=== PATIENT | male | born 1950 | race Two or more races ===

== ENCOUNTER 2016-11-13 22:29 | Inpatient (IN) | payer MEDICARE, OTHER ==
[~2016-11-13] VITALS: Ht 170.2 cm; Wt 88.5 kg
[~2016-11-13 22:29] MED LIST: CARAFATE1 G1 ORAL; CATAPRES0.1 MG ORAL; GEODON40 MG ORAL; LISINOPRIL20 MG ORAL; QUETIAPINE FUM200 MG ORAL
[2016-11-13 22:37] VITALS: BP 151/59
[2016-11-13] MEDS ORDERED: CARAFATE1 GM/10 M1 ORAL (23:01)
[2016-11-13] MEDS ORDERED: VISTARIL10 MG ORAL (23:01)
[2016-11-13] MEDS ORDERED: LANTUS SOL100 UNIT/1 SUBQ (23:01)
[2016-11-13] MEDS ORDERED: DOCUSIL100 M1 ORAL (23:01)
[2016-11-13] MEDS ORDERED: LISINOPRIL20 MG ORAL (23:01)
[2016-11-13] MEDS ORDERED: OLANZAPINE10 MG ORAL (23:01)
[2016-11-13] MEDS ORDERED: ZYPREXA20 MG ORAL (23:01)
[2016-11-13] MEDS ORDERED: IBUPROFEN600 MG ORAL (23:01)
[2016-11-13] MEDS ORDERED: LEVOTHYROXINE25 MCG ORAL (23:01)
[2016-11-13] MEDS ORDERED: COGENTIN1 MG/ML PO (23:01)
[2016-11-13] MEDS ORDERED: PANTOPRAZOLE SO20 MG ORAL (23:01)
[2016-11-13] MEDS ORDERED: NORVASC5 MG ORAL (23:01)
[2016-11-13] MEDS ORDERED: HYDROCHLOROTHIA25 MG ORAL (23:01)
[2016-11-13] MEDS ORDERED: ATIVAN1 MG ORAL (23:01)
[2016-11-13] MEDS ORDERED: PAXIL10 MG/5 ML PO (23:01)
[2016-11-13 23:17] LABS: BASOPHILS % (AUTO) 1.9 % (0.0-2.0); EOSINOPHILS % (AUTO) 2.5 % (0.0-3.0); MEAN CORPUSCULAR HEMOGLOBIN 35.9 PG (27.0-31.0); MEAN CORPUSCULAR HGB CONC 38.5 G/DL (32.0-36.0); MEAN CORPUSCULAR VOLUME 93 FL (80-99); MEAN PLATELET VOLUME 7.4 FL (6.5-10.1); MONOCYTES % (AUTO) 12.9 % (1.0-10.0); NEUTROPHILS % (AUTO) 58.6 % (45.0-75.0); PLATELET COUNT 108 K/UL (150-450); RED BLOOD COUNT 3.08 M/UL (4.70-6.10); RED CELL DISTRIBUTION WIDTH 10.6 % (11.6-14.8); WHITE BLOOD COUNT 5.1 K/UL (4.8-10.8)
[2016-11-13 23:26] LABS: APPEARANCE,URINE CLEAR; KETONES,URINE 1+ (NEGATIVE); LEUKOCYTE ESTERASE ,URINE NEGATIVE (NEGATIVE); NITRITE,URINE NEGATIVE (NEGATIVE); PH,URINE 7 (4.5-8.0); PROTEIN,URINE NEGATIVE (NEGATIVE); UROBILINOGEN,URINE NORMAL MG/DL (0.0-1.0)
[2016-11-13 23:30] LABS: INR 1.4 (0.9-1.1); PROTHROMBIN TIME 14.7 SEC (9.30-11.50)
[2016-11-13 23:45] LABS: TROPONIN I < 0.30 ng/mL (<=0.30)
[2016-11-13 23:50] LABS: ALANINE AMINOTRANSFERASE 57 U/L (3-41); ALBUMIN/GLOBULIN RATIO 1.2 (1.0-2.7); ANION GAP 19 (5-15); ASPARTATE AMINO TRANSFERASE 111 U/L (5-40); CALCIUM 7.9 mg/dL (8.6-10.2); CARBON DIOXIDE 18 mEQ/L (20-30); CHLORIDE 69 mEQ/L (98-107); CREATININE 0.6 mg/dL (0.7-1.2); GLOMERULAR FILTRATION RATE > 60 mL/min (>60); HEMOLYSIS 7; LIPASE 45 U/L (< 60); POTASSIUM 3.7 mEQ/L (3.4-4.9); TOTAL PROTEIN 5.8 g/dL (6.6-8.7)
[2016-11-13 23:53] LABS: SODIUM 106 mEQ/L (135-145)
[2016-11-14] VITALS (9 sets, daily range): BP systolic 117–165; BP diastolic 56–76
[2016-11-14] LABS: CKMB 8.1 ng/mL (< 6.7)
--- NOTE | 2016-11-14 00:50 | Emergency Room Report ---
History of Present Illness General Chief Complaint: Abdominal Pain Source: Patient, Medical Record Present Illness HPI Patient presents from nursing facility for complaints of abdominal pain It was reports of urinary retention for several days Patient himself reports that he feels sick Feels weak Denies any focal pain Denies any headache or visual changes Denies any seizure activity denies any neck pain or photophobia There was no obvious fevers Allergies: Coded Allergies: No Known Allergies (Unverified , 02/26/16) Patient History Past Medical History: see triage record Pertinent Family History: none Reviewed Nursing Documentation: PMH: Agreed, PSxH: Agreed Nursing Documentation-PMH Past Medical History: No History, Except For Hx Cardiac Problems: No Hx Cancer: No Hx Gastrointestinal Problems: No Review of Systems All Other Systems: negative except mentioned in HPI Physical Exam Vital Signs Date Time Temp Pulse Resp B/P Pulse Ox O2 Delivery O2 Flow Rate FiO2 11/13/16 22:31 98.1 77 18 164/84 94 Room Air Sp02 EP Interpretation: reviewed, normal General Appearance: no apparent distress Head: normocephalic, atraumatic Eyes: bilateral eye EOMI, bilateral eye PERRL ENT: hearing grossly normal, normal pharynx, TMs + canals normal, uvula midline Neck: full range of motion, supple, no meningismus, no bony tend Respiratory: lungs clear, normal breath sounds, no rhonchi, no respiratory distress, no retraction, no accessory muscle use Cardiovascular #1: normal peripheral pulses, regular rate, rhythm, no gallop, no JVD, no murmur Gastrointestinal: normal bowel sounds, soft, no mass, no organomegaly, non- distended, no guarding, no hernia, no pulsatile mass, no rebound, other - Uncomfortable suprapubic area Genitourinary: no CVA tenderness Musculoskeletal: normal inspection Neurologic: oriented x3, responsive, routing machine operator III-XII nml as tested, motor strength/ tone normal, sensory intact Psychiatric: mood/affect normal Skin: no rash, warm/dry, other - Edema bilaterally Lymphatic: normal inspection, no adenopathy Medical Decision Making Diagnostic Impression: Primary Impression: Hyponatremia Additional Impression: Hypochloremia ER Course Patient is a fairly complex patient with multiple differential to consideration including but not limited to cardiac cardiopulmonary and vascular emergencies Patient's initial chemistry came back with a very low sodium Asking him further the patient reports that he has been drinking a lot of water Patient does not show any signs of seizures patient is awake and alert At this time has signs of fluid overload I feel the patient requires fluid restriction At this time was given 500 mL of normal saline Consideration is made for ICU admission However the patient is not on any trips Does not show any neurological symptoms And will have initial admission for telemetry with possible upgrade as needed Labs Test 11/13/16 22:25 11/13/16 22:50 11/14/16 00:14 Urine Color Yellow Urine Appearance Clear Urine pH 7 (4.5-8.0) Urine Specific [place] 1.005 (1.005-1.035) Urine Protein Negative (NEGATIVE) Urine Glucose (UA) Negative (NEGATIVE) Urine Ketones 1+ (NEGATIVE) Urine Occult Blood Negative (NEGATIVE) Urine Nitrite Negative (NEGATIVE) Urine Bilirubin Negative (NEGATIVE) Urine Urobilinogen Normal MG/DL (0.0-1.0) Urine Leukocyte Esterase Negative (NEGATIVE) White Blood Count 5.1 K/UL (4.8-10.8) Red Blood Count 3.08 M/UL (4.70-6.10) Hemoglobin 11.1 G/DL (14.2-18.0) Hematocrit 28.8 % (42.0-52.0) Mean Corpuscular Volume 93 FL (80-99) Mean Corpuscular Hemoglobin 35.9 PG (27.0-31.0) Mean Corpuscular Hemoglobin Concent 38.5 G/DL (32.0-36.0) Red Cell Distribution Width 10.6 % (11.6-14.8) Platelet Count 108 K/UL (150-450) Mean Platelet Volume 7.4 FL (6.5-10.1) Neutrophils (%) (Auto) 58.6 % (45.0-75.0) Lymphocytes (%) (Auto) 24.0 % (20.0-45.0) Monocytes (%) (Auto) 12.9 % (1.0-10.0) Eosinophils (%) (Auto) 2.5 % (0.0-3.0) Basophils (%) (Auto) 1.9 % (0.0-2.0) Prothrombin Time 14.7 SEC (9.30-11.50) Prothromb Time International Ratio 1.4 (0.9-1.1) Activated Partial Thromboplast Time 55 SEC (23-33) Sodium Level 106 mEQ/L (135-145) 105 mEQ/L (135-145) Potassium Level 3.7 mEQ/L (3.4-4.9) 3.8 mEQ/L (3.4-4.9) Chloride Level 69 mEQ/L (98-107) 71 mEQ/L (98-107) Carbon Dioxide Level 18 mEQ/L (20-30) 20 mEQ/L (20-30) Anion Gap 19 (5-15) 14 (5-15) Blood Urea Nitrogen 4 mg/dL (7-23) 4 mg/dL (7-23) Creatinine 0.6 mg/dL (0.7-1.2) 0.5 mg/dL (0.7-1.2) Estimat Glomerular Filtration Rate > 60 mL/min (>60) > 60 mL/min (>60) Glucose Level 130 mg/dL (74-106) 128 mg/dL (74-106) Calcium Level 7.9 mg/dL (8.6-10.2) 7.5 mg/dL (8.6-10.2) Total Bilirubin 0.8 mg/dL (0.0-1.2) Aspartate Amino Transf (AST/SGOT) 111 U/L (5-40) Alanine Aminotransferase (ALT/SGPT) 57 U/L (3-41) Alkaline Phosphatase 107 U/L (40-129) Total Creatine Kinase 571 U/L (38-174) Creatine Kinase MB 8.1 ng/mL (< 6.7) Creatine Kinase MB Relative Index 1.4 Troponin I < 0.30 ng/mL (<=0.30) Total Protein 5.8 g/dL (6.6-8.7) Albumin 3.2 g/dL (3.5-5.2) Globulin 2.6 g/dL Albumin/Globulin Ratio 1.2 (1.0-2.7) Lipase 45 U/L (< 60) Rhythm Strip Diag. Results EP Interpretation: yes Rate: 67 Rhythm: NSR, no PVC's, no ectopy Last Vital Signs Date Time Temp Pulse Resp B/P Pulse Ox O2 Delivery O2 Flow Rate FiO2 11/13/16 22:37 98.1 69 18 151/59 94 Room Air Status: improved Disposition: ADMITTED INPATIENT Condition: Serious Referrals: Elia Buchanan MD (PCP) ELIA WHITE D.O. November 14, 2016 00:50
[2016-11-14 00:58] LABS: ANION GAP 14 (5-15); CALCIUM 7.5 mg/dL (8.6-10.2); CARBON DIOXIDE 20 mEQ/L (20-30); CHLORIDE 71 mEQ/L (98-107); CREATININE 0.5 mg/dL (0.7-1.2); GLOMERULAR FILTRATION RATE > 60 mL/min (>60); HEMOLYSIS 3; POTASSIUM 3.8 mEQ/L (3.4-4.9)
[2016-11-14 01:01] LABS: SODIUM 105 mEQ/L (135-145)
[2016-11-14] MEDS ORDERED: SUCRALFATE1 GM ORAL (05:06)
[2016-11-14] MEDS ORDERED: DOCUSATE SODIU100 MG ORAL (05:06)
[2016-11-14] MEDS ORDERED: Olanzapine PO (05:06)
[2016-11-14] MEDS ORDERED: LANTUS5 UNITS SUBQ (05:06)
[2016-11-14] MEDS ORDERED: BENZTROPINE ME0.5 MG PO (05:06)
[2016-11-14] MEDS ORDERED: ZESTRIL20 MG ORAL (05:06)
[2016-11-14] MEDS ORDERED: VITAMINS PO (05:06)
[2016-11-14] MEDS ORDERED: MINERALS PO (05:06)
[2016-11-14] MEDS ORDERED: Levothyroxine Sodium PO (05:06)
[2016-11-14] MEDS ORDERED: HYDROXYZINE HCL25 M1 PO (05:06)
[2016-11-14] MEDS ORDERED: PAXIL20 MG ORAL (05:06)
[2016-11-14] MEDS ORDERED: NaCl 3% 500ml 250 ML IVPB ONE (06:00)
[2016-11-14] MEDS: NovoLOG Insulin Flexpen SUBQ SCH ×4 (06:30→21:00)
[2016-11-14] MEDS ORDERED: HydrALAZINE 25mg tab ORAL PRN (10:45)
[2016-11-14 10:46] LABS: URIC ACID 2.5 mg/dL (3.0-7.5)
[2016-11-14 10:55] LABS: THYROID STIMULATING HORMONE 3.73 uIU/mL (0.300-4.500)
--- NOTE | 2016-11-14 11:56 | Diagnostic Imaging Report ---
APPROVED REPORT CPT Code: 72124 Present Symptoms Lower Extremity Pain: Bilateral BILATERAL: Imaging reveals a patent deep venous system bilaterally. There is no evidence of thrombus within the femoral, popliteal or tibial segments. The greater saphenous veins are also within normal limits. Doppler indicates normal spontaneous flow within these segments.
--- NOTE | 2016-11-14 13:26 | Consultation ---
Consult Note Consult Note HPI Patient presents from nursing facility for complaints of abdominal pain It was reports of urinary retention for several days Patient himself reports that he feels sick Feels weak Denies any focal pain Denies any headache or visual changes Denies any seizure activity denies any neck pain or photophobia There was no obvious fevers Allergies: No Known Allergies Past Medical History: No History, Except For Hx Cardiac Problems: No Hx Cancer: No Hx Gastrointestinal Problems: No patient interviewed and examined data reviewed been on HCTZ . Assessment/Plan Low Na likely depletional- improving Urinary obstruction- Abnormal elevation LFTs HTN Hypothyroidism Psych disorders Assessment/Plan 3% Saline synthroid- gastric support per consultants. Psych ELVIRA PATTERSON November 14, 2016 13:26
--- NOTE | 2016-11-14 14:13 | Infectious Diseases Prog Note ---
Assessment/Plan Problems: (1) Hepatitis Assessment & Plan: will order hepatitis panel and HIV test, monitor LFT, avoid hepatotoxic meds, recommend GI consult (2) Abdominal pain Assessment & Plan: suspect due to urinary retension, monitor symptoms, consider CT if no improvement (3) Urinary retention Assessment & Plan: S/P [place] catheter placement, recommend urology consult (4) Hyponatremia Assessment & Plan: suspect dilutional due to free water intake, recommend free water restriction , renal is following Subjective Allergies: Coded Allergies: No Known Allergies (Unverified , 02/26/16) Objective Vital Signs Last 24 Hour Vital Signs Date Time Temp Pulse Resp B/P Pulse Ox O2 Delivery O2 Flow Rate FiO2 11/14/16 12:00 52 11/14/16 11:42 164/76 11/14/16 11:28 97.3 58 20 164/76 99 Nasal Cannula 2.0 11/14/16 08:42 97.7 62 18 117/56 98 Nasal Cannula 2.0 11/14/16 08:00 48 11/14/16 04:00 97.2 55 20 142/65 98 Nasal Cannula 2.0 11/14/16 04:00 52 11/14/16 02:10 97.7 66 18 151/66 98 Nasal Cannula 2.0 11/14/16 02:05 68 11/14/16 01:51 98.1 63 18 148/63 96 Room Air 11/14/16 01:50 98.1 63 18 148/63 96 Room Air 11/14/16 00:55 98.1 72 18 165/66 96 Room Air 11/13/16 22:37 98.1 69 18 151/59 94 Room Air 11/13/16 22:31 98.1 77 18 164/84 94 Room Air Height (Feet): 5 Height (Inches): 7.00 Weight (Pounds): 202 Laboratory Tests Test 11/13/16 22:25 11/13/16 22:50 11/14/16 00:14 11/14/16 10:53 Urine Color Yellow Urine Appearance Clear Urine pH 7 (4.5-8.0) Urine Specific [place] 1.005 (1.005-1.035) Urine Protein Negative (NEGATIVE) Urine Glucose (UA) Negative (NEGATIVE) Urine Ketones 1+ (NEGATIVE) H Urine Occult Blood Negative (NEGATIVE) Urine Nitrite Negative (NEGATIVE) Urine Bilirubin Negative (NEGATIVE) Urine Urobilinogen Normal MG/DL (0.0-1.0) Urine Leukocyte Esterase Negative (NEGATIVE) White Blood Count 5.1 K/UL (4.8-10.8) Red Blood Count 3.08 M/UL (4.70-6.10) L Hemoglobin 11.1 G/DL (14.2-18.0) L Hematocrit 28.8 % (42.0-52.0) L Mean Corpuscular Volume 93 FL (80-99) Mean Corpuscular Hemoglobin 35.9 PG (27.0-31.0) H Mean Corpuscular Hemoglobin Concent 38.5 G/DL (32.0-36.0) H Red Cell Distribution Width 10.6 % (11.6-14.8) L Platelet Count 108 K/UL (150-450) L Mean Platelet Volume 7.4 FL (6.5-10.1) Neutrophils (%) (Auto) 58.6 % (45.0-75.0) Lymphocytes (%) (Auto) 24.0 % (20.0-45.0) Monocytes (%) (Auto) 12.9 % (1.0-10.0) H Eosinophils (%) (Auto) 2.5 % (0.0-3.0) Basophils (%) (Auto) 1.9 % (0.0-2.0) Prothrombin Time 14.7 SEC (9.30-11.50) H Prothromb Time International Ratio 1.4 (0.9-1.1) H Activated Partial Thromboplast Time 55 SEC (23-33) H Sodium Level 106 mEQ/L (135-145) *L 105 mEQ/L (135-145) *L Potassium Level 3.7 mEQ/L (3.4-4.9) 3.8 mEQ/L (3.4-4.9) Chloride Level 69 mEQ/L (98-107) L 71 mEQ/L (98-107) L Carbon Dioxide Level 18 mEQ/L (20-30) L 20 mEQ/L (20-30) Anion Gap 19 (5-15) H 14 (5-15) Blood Urea Nitrogen 4 mg/dL (7-23) L 4 mg/dL (7-23) L Creatinine 0.6 mg/dL (0.7-1.2) L 0.5 mg/dL (0.7-1.2) L Estimat Glomerular Filtration Rate > 60 mL/min (>60) > 60 mL/min (>60) Glucose Level 130 mg/dL (74-106) H 128 mg/dL (74-106) H Calcium Level 7.9 mg/dL (8.6-10.2) L 7.5 mg/dL (8.6-10.2) L Total Bilirubin 0.8 mg/dL (0.0-1.2) Aspartate Amino Transf (AST/SGOT) 111 U/L (5-40) H Alanine Aminotransferase (ALT/SGPT) 57 U/L (3-41) H Alkaline Phosphatase 107 U/L (40-129) Total Creatine Kinase 571 U/L (38-174) H Creatine Kinase MB 8.1 ng/mL (< 6.7) H Creatine Kinase MB Relative Index 1.4 Troponin I < 0.30 ng/mL (<=0.30) Total Protein 5.8 g/dL (6.6-8.7) L Albumin 3.2 g/dL (3.5-5.2) L Globulin 2.6 g/dL Albumin/Globulin Ratio 1.2 (1.0-2.7) Lipase 45 U/L (< 60) Hemoglobin A1c 5.3 % (< 6.0) Plasma/Serum Osmolality Pending Uric Acid 2.5 mg/dL (3.0-7.5) L Phosphorus Level 2.9 mg/dL (2.5-4.8) Thyroid Stimulating Hormone (TSH) 3.730 uIU/mL (0.300-4.500) Urine Osmolality Pending Urine Random Sodium < 10 mmol/L Current Medications Medications (Trade) Dose Ordered Sig/Kathleen Route PRN Reason Start Time Stop Time Status Last Admin Dose Admin Dextrose STAT PRN IV Hypoglycemia 11/14/16 05:45 12/14/16 05:44 Hydralazine HCl (Apresoline) 25 mg Q6HR PRN ORAL bp over 160 syst 11/14/16 10:45 12/14/16 10:44 11/14/16 11:42 Insulin Aspart (NovoLOG) BEFORE MEALS AND HS SUBQ 11/14/16 06:30 12/14/16 06:29 Nifedipine (Procardia XL) 60 mg DAILY ORAL 11/14/16 14:00 12/14/16 13:59 Pantoprazole 40 mg 40 mg DAILY ORAL 11/14/16 11:00 12/14/16 10:59 11/14/16 11:42 Sodium Chloride 250 ml @ 30 mls/hr ONCE ONCE IV 11/14/16 14:20 11/14/16 22:39 Sodium Chloride (Hypertonic Saline) 250 ml @ 30 mls/hr ONCE ONCE IVPB 11/14/16 06:00 11/14/16 14:19 11/14/16 06:59 Sodium Chloride (Hypertonic Saline) 500 ml @ 30 mls/hr ONCE ONCE IV 11/14/16 23:00 11/15/16 15:39 Elke Coffey M.D. November 14, 2016 14:13
[2016-11-14] MEDS ORDERED: NaCl 3% 500ml 250 ML IV ONE (14:20)
[2016-11-14 16:47] LABS: ALANINE AMINOTRANSFERASE 56 U/L (3-41); ALBUMIN/GLOBULIN RATIO 1.2 (1.0-2.7); ANION GAP 14 (5-15); ASPARTATE AMINO TRANSFERASE 112 U/L (5-40); CALCIUM 7.9 mg/dL (8.6-10.2); CARBON DIOXIDE 23 mEQ/L (20-30); CHLORIDE 86 mEQ/L (98-107); CREATININE 0.7 mg/dL (0.7-1.2); GLOMERULAR FILTRATION RATE > 60 mL/min (>60); HEMOLYSIS 7; POTASSIUM 3.4 mEQ/L (3.4-4.9); SODIUM 123 mEQ/L (135-145); TOTAL PROTEIN 5.6 g/dL (6.6-8.7)
--- NOTE | 2016-11-14 19:38 | Consultation ---
DATE OF CONSULTATION: INFECTIOUS DISEASE CONSULTATION: REASON FOR CONSULTATION: Elevated transaminases rule out infectious etiology. REQUESTING PHYSICIAN: Elia Buchanan M.D. HISTORY OF PRESENT ILLNESS: The patient is a 66-year-old male with past medical history of schizophrenia disorder and possible dementia, was brought into the hospital for persistent abdominal pain and urinary retention for several days. The patient was drinking lot of water at the senior living facility with no improvement in his urine output in fact he was retaining urine. The patient felt weak and sick. He had no fever or chills. He was sent to the emergency room at [facility] for further evaluation. The patient was found to have urine retention and Rios catheter was placed which improved his symptoms. The patient's sodium level was also found to be low probably due to dilutional hyponatremia from drinking excessive amounts of free water. His transaminases also was elevated and I was consulted by the primary provider for further evaluation of his elevated transaminase and to rule out infectious etiology. As of note, the patient is poor historian, cannot provide any history. History was mainly obtained from the medical record. PAST MEDICAL HISTORY: Significant for psych disorder and possible dementia. PAST SURGICAL HISTORY: Negative. MEDICATIONS: He is on insulin, hydralazine, Protonix, nifedipine, and normal saline. ALLERGIES: He has no known drug allergy. SOCIAL HISTORY: He lives at senior living facility. No recent tobacco, drugs, or alcohol. FAMILY HISTORY: Not contributory. PHYSICAL EXAMINATION: VITAL SIGNS: Temperature 97.3 degrees, pulse 58, respirations 20, blood pressure 164/76, and pulse oximetry 99% on two liters nasal cannula. GENERAL: The patient is a middle-aged male, lying in bed, awake, alert, comfortable not in distress. HEENT: Normocephalic and atraumatic. Pupils are reactive to light equally. Moist oral mucosa. No exudate. NECK: Supple. No lymphadenopathy. CARDIOVASCULAR: Regular rate and rhythm. No murmur or gallop. LUNGS: Clear bilaterally. No wheezing or rhonchi. ABDOMEN: Soft, nontender, and nondistended. Positive bowel sounds. No hepatosplenomegaly. EXTREMITIES: No edema. No cyanosis. LABORATORY AND DIAGNOSTIC DATA: Labs showed white count of 5.1, hemoglobin of 11.1, and platelet count of 108,000. BUN 4 and creatinine of 0.5. Uric acid of 2.5. AST of 111, ALT 57, and alkaline phosphatase of 107. Imaging, venous Doppler of the lower extremity revealed patent deep venous system bilaterally with no evidence of thrombus within the femoral popliteal or tibial segment. ASSESSMENT AND PLAN: 1. Hepatitis with elevated transaminases rule out infectious etiology. We will screen him for hepatitis and get serology. We will also order monospot test to rule out [place] and an etiology of his elevated transaminase. Continue supportive care. Avoid hepatotoxic medicine. Follow up with Gastroenterology. 2. Abdominal pain suspect due to bladder distention and urinary retention, improved. Monitor symptoms. Consider CT if no improvement or recurrent. 3. Urinary retention rule out enlarged prostate status post Rios catheter placement. Recommend Urology consult and urine output monitor. 4. Hyponatremia suspect dilutional from excessive free water intake and dehydration. Continue intravenous fluid for hydration. Renal service is following. Elke Coffey M.D. DR: Amando JOB#: [id number] CC: EMILE
--- NOTE | 2016-11-14 21:18 | History and Physical Report ---
DATE OF ADMISSION: 11/14/2016 HISTORY OF PRESENT ILLNESS: The patient is a psychiatric patient come in with severe hyponatremia. The patient has chronic hyponatremia. His baseline sodium is 127. The patient has a bipolar and he drinks a lot of water. 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 So, I told her to inform Dr. Arrington and put him on fluid restriction. I spoke to the patient regarding not drinking more than necessary. I urged him to use restrain, he said he will. Denies any pain. Denies any seizure activity in the recent past. PAST MEDICAL HISTORY: Psychogenic polydipsia, bipolar disorder, NIDDM, GERD, chronic hyponatremia, hypertension, anxiety, and hypothyroidism. PAST SURGICAL HISTORY: None. MEDICATIONS: Cogentin, Colace, hydrochlorothiazide, , insulin, lisinopril, lorazepam, olanzapine, Protonix, Paxil, Carafate, and Levoxyl. ALLERGIES: No known allergies. SOCIAL HISTORY: The patient denies history of smoking. Does has history of drug and alcohol abuse. He lives in an assisted living. FAMILY HISTORY: Not contributory. REVIEW OF SYSTEMS: HEENT: Denies headaches. Denies diplopia. Respiratory: Denies shortness of breath. Denies cough. Cardiovascular: Denies chest pain. GI: Denies nausea, vomiting, or diarrhea. Extremities: Denies pain. CODING ASSISTANT: Denies change in vision or speech pattern. He was feeling very week yesterday and had difficulty walking due to weakness. PHYSICAL EXAMINATION: VITAL SIGNS: Temperature is 97.7 degrees, pulse 62, and blood pressure 117/66. HEENT: PERRLA. NECK: Supple. No lymphadenopathy. CHEST: Clear to auscultation. GI: Soft, nontender, and nondistended. No organomegaly. EXTREMITIES: No edema. Moves all four extremities. NEUROLOGIC: Sensory intact to light touch. Reflexes are equal on both sides. Moves all four extremities. Alert and oriented. LABORATORY AND DIAGNOSTIC DATA: Labs, WBC 5.1, hemoglobin 11, and platelets 108,000. Sodium 105, potassium 3.8, BUN 4, and creatinine 0.5. ASSESSMENT AND PLAN: 1. Severe hyponatremia. 2. Psychogenic polydipsia. 3. Psychiatric patient. PLAN: I have asked Dr. Arrington, Dr. Gutierres as well as Dr. Finley and Dr. Lozano for his blood sugar being out of control as well as for his severe urinary retention that he presented to the ER. Elia Buchanan M.D. DR: Yesenia JOB#: [id number] CC:
[2016-11-14] MEDS ORDERED: NaCl 3% 500ml 500 ML IV ONE (23:00)
[2016-11-15] VITALS: BP 145/67
--- NOTE | 2016-11-15 00:38 | Consultation ---
DATE OF CONSULTATION: 11/14/2016 ATTENDING/REFERRING PHYSICIAN: Elia Buchanan M.D. CHIEF COMPLAINT/HISTORY OF PRESENT ILLNESS: Asked by Dr. Buchanan to evaluate this pleasant 66-year-old gentleman regarding history of urinary retention. Briefly, the patient has a history of severe hyponatremia. In general, his sodium is in the 120s. He apparently has psychiatric/bipolar disorder and drinks a lot of water. He apparently drank 6 liters of water prior to presenting to the hospital and presented with a sodium of 105. He was admitted and placed on fluid restriction and Nephrology was called to see him. A Rios catheter was placed and I was asked to see him regarding urinary retention. The patient denies any history of difficulty voiding at baseline. He reports going three to four times a day and not having any nocturia. He reports a good force of stream and ability to empty his bladder without any sensation of retention, double voiding, or straining to void. There is no history of dysuria, hematuria, previous urinary tract infections, urinary tract stones, or prostate problems per the patient. PAST MEDICAL HISTORY: 1. Bipolar disorder. 2. Chronic hyponatremia. 3. Diabetes mellitus. 4. Hypertension. 5. Gastroesophageal reflux disease. 6. General anxiety disorder. 7. Hypothyroidism. 8. Psychogenic polydipsia. PAST SURGICAL HISTORY: None. MEDICATIONS: Please see the chart for current medications and administration details. ALLERGIES: No known drug allergies. SOCIAL HISTORY: Unremarkable tobacco use. The patient has a history of drug and alcohol abuse in the past. He lives in assisted living facility. FAMILY HISTORY: Noncontributory. REVIEW OF SYSTEMS: A 12-system review of systems was essentially unremarkable outside of what is described above. PHYSICAL EXAMINATION: GENERAL: The patient is an older gentleman, awake, and alert. Appears oriented. No obvious distress. HEENT: NC/AT. EOMI. Oropharynx clear. NECK: Supple. Full range of motion. CHEST: Within normal limits. ABDOMEN: Soft. Obese. Tender by report diffusely, but no guarding or rebound. Nondistended. EXTREMITIES: Warm and well perfused. No cyanosis, clubbing, or edema. BACK: No CVA tenderness to percussion. GENITOURINARY: A circumcised male phallus with Rios catheter in place with clear yellow urine output. There are bilateral descended testes and cord structures with no masses or tenderness to palpation. LABORATORY DATA: White blood cell count 5.1, hematocrit 28.8, and platelets 108,000. PT 14.7, INR 1.4, and PTT 55. Urinalysis - specific gravity 1.005, pH 7.0, and dip test notable for 1+ ketones, otherwise unremarkable. Sodium 123, potassium 3.4, chloride 86, bicarbonate 23, BUN 5, creatinine 0.7, glucose 105, and calcium 7.9. LFTs notable for AST of 112, ALT of 56, and alkaline phosphatase 110. DIAGNOSTIC IMAGING: Lower extremity Doppler venous ultrasound reveals no evidence of DVTs. ASSESSMENT AND PLAN: In summary, the patient is a 66-year-old gentleman with a history of acute on chronic hyponatremia presenting to the hospital after drinking 6 liters of water. He was found to have profound hyponatremia and was admitted to the hospital for management of same. Apparently, he had some evidence of urinary retention although he denies any baseline voiding symptoms. A Rios catheter is in place and is being used to monitor his urine output in the setting of his hyponatremia. Physical exam is essentially unremarkable from a genitourinary standpoint. Laboratory data is notable for hyponatremia and elevated LFTs. There is no relevant diagnostic imaging. We can keep the patient's catheter in place for now as his urine output and I's and O's are important in the setting of his hyponatremia. Eventually when he is ready and his sodium is improved, we can remove it and see if he can urinate without it. I am going to start the patient on some Flomax in an effort to improve his ability to urinate once the catheter comes out. Thank you again for allowing me to participate in the care of this nice gentleman. Please do not hesitate to contact me for any questions that you may further have regarding his care. I will be happy to continue to see him with you. Huang Finley M.D. DR: TODD JOB#: [id number] CC:
[2016-11-15 04:00] VITALS: BP 150/68
[2016-11-15] MEDS: NovoLOG Insulin Flexpen SUBQ SCH ×4 (06:30→21:09)
[2016-11-15 07:53] VITALS: BP 142/68
[2016-11-15 07:56] LABS: BASOPHILS % (AUTO) 1.3 % (0.0-2.0); EOSINOPHILS % (AUTO) 1.4 % (0.0-3.0); LYMPHOCYTES % (AUTO) 25.8 % (20.0-45.0); MEAN CORPUSCULAR HEMOGLOBIN 33.4 PG (27.0-31.0); MEAN CORPUSCULAR HGB CONC 35.4 G/DL (32.0-36.0); MEAN CORPUSCULAR VOLUME 94 FL (80-99); MEAN PLATELET VOLUME 7.8 FL (6.5-10.1); MONOCYTES % (AUTO) 15.8 % (1.0-10.0); NEUTROPHILS % (AUTO) 55.7 % (45.0-75.0); PLATELET COUNT 167 K/UL (150-450); RED BLOOD COUNT 3.82 M/UL (4.70-6.10); RED CELL DISTRIBUTION WIDTH 11.2 % (11.6-14.8); WHITE BLOOD COUNT 4.7 K/UL (4.8-10.8)
[2016-11-15 08:11] LABS: ALANINE AMINOTRANSFERASE 61 U/L (3-41); ANION GAP 14 (5-15); ASPARTATE AMINO TRANSFERASE 117 U/L (5-40); CALCIUM 8.2 mg/dL (8.6-10.2); CARBON DIOXIDE 23 mEQ/L (20-30); CHLORIDE 93 mEQ/L (98-107); CREATININE 0.7 mg/dL (0.7-1.2); GLOMERULAR FILTRATION RATE > 60 mL/min (>60); MAGNESIUM 1.8 mg/dL (1.7-2.5); PHOSPHORUS 3.5 mg/dL (2.5-4.8); POTASSIUM 3.7 mEQ/L (3.4-4.9); SODIUM 130 mEQ/L (135-145); TOTAL PROTEIN 6.3 g/dL (6.6-8.7); URIC ACID 3.9 mg/dL (3.0-7.5)
[2016-11-15 08:12] LABS: ALBUMIN/GLOBULIN RATIO 1.1 (1.0-2.7); CRP QUANT < 0.3 mg/dL (< 0.5); HEMOLYSIS 6
--- NOTE | 2016-11-15 08:14 | Cardiology Report ---
APPROVED REPORT EKG Measurement Heart [id number] Sinus rhythm with atrial premature complexes Anterior infarct, age undetermined Abnormal ECG
[2016-11-15 11:17] VITALS: BP 137/65
--- NOTE | 2016-11-15 13:14 | General Progress Note ---
Assessment/Plan Status: stable - from renal stand Status Narrative Na now 130 Assessment/Plan Low Na likely depletional- improving Urinary obstruction- Abnormal elevation LFTs HTN Hypothyroidism Psych disorders with Polydypsia Assessment/Plan 3% Saline given synthroid- gastric support per consultants. Psych monitor lytes Subjective ROS Limited/Unobtainable: No Constitutional: Reports: malaise Allergies: Coded Allergies: No Known Allergies (Unverified , 02/26/16) Objective Last 24 Hour Vital Signs Date Time Temp Pulse Resp B/P Pulse Ox O2 Delivery O2 Flow Rate FiO2 11/15/16 11:17 97.9 63 20 137/65 Nasal Cannula 2.0 11/15/16 10:04 66 142/68 11/15/16 08:00 92 11/15/16 07:53 97.2 66 20 142/68 97 Nasal Cannula 2.0 11/15/16 04:00 98.2 64 20 150/68 98 Room Air 11/15/16 04:00 58 11/15/16 00:00 55 11/15/16 00:00 97.8 65 21 145/67 97 Room Air 11/14/16 20:00 97.7 66 21 125/58 94 Room Air 11/14/16 20:00 52 11/14/16 16:00 57 11/14/16 15:18 97.2 60 20 140/60 97 Nasal Cannula 2.0 11/14/16 14:34 56 141/66 Intake and Output 11/14/16 11/15/16 19:00 07:00 Intake Total 690 ml 540 ml Output Total 3020 ml 2600 ml Balance -2330 ml -2060 ml Intake Oral 360 ml 540 ml IV Total 330 ml Output Urine Total 3020 ml 2600 ml Laboratory Tests 11/14/16 15:55: Sodium Level 123#L, Potassium Level 3.4, Chloride Level 86L, Carbon Dioxide Level 23, Anion Gap 14, Blood Urea Nitrogen 5L, Creatinine 0.7, Estimat Glomerular Filtration Rate > 60, Glucose Level 105, Calcium Level 7.9L, Total Bilirubin 0.8, Aspartate Amino Transf (AST/SGOT) 112H, Alanine Aminotransferase (ALT/SGPT) 56H, Alkaline Phosphatase 110, Total Protein 5.6L, Albumin 3.1L, Globulin 2.5, Albumin/Globulin Ratio 1.2, Hepatitis A IgM Antibody [Pending], Hepatitis B Surface Antigen [Pending], Hepatitis B Surface Antibody [Pending], Hepatitis B Core IgM Antibody [Pending], Hepatitis C Antibody [Pending], HIV (1& 2) Antibody Rapid Negative 11/15/16 07:20: Sodium Level 130L, Potassium Level 3.7, Chloride Level 93L, Carbon Dioxide Level 23, Anion Gap 14, Blood Urea Nitrogen 5L, Creatinine 0.7, Estimat Glomerular Filtration Rate > 60, Glucose Level 92, Calcium Level 8.2L, Total Bilirubin 0.9, Aspartate Amino Transf (AST/SGOT) 117H, Alanine Aminotransferase (ALT/SGPT) 61H, Alkaline Phosphatase 102, Total Protein 6.3L, Albumin 3.4L, Globulin 2.9, Albumin/Globulin Ratio 1.1, White Blood Count 4.7L, Red Blood Count 3.82L, Hemoglobin 12.8L, Hematocrit 36.0L, Mean Corpuscular Volume 94, Mean Corpuscular Hemoglobin 33.4H, Mean Corpuscular Hemoglobin Concent 35.4, Red Cell Distribution Width 11.2L, Platelet Count 167#, Mean Platelet Volume 7.8 , Neutrophils (%) (Auto) 55.7, Lymphocytes (%) (Auto) 25.8, Monocytes (%) (Auto ) 15.8H, Eosinophils (%) (Auto) 1.4, Basophils (%) (Auto) 1.3, Uric Acid 3.9, Phosphorus Level 3.5, Magnesium Level 1.8, C-Reactive Protein, Quantitative < 0.3, Pro-B-Type Natriuretic Peptide 54 Height (Feet): 5 Height (Inches): 7.00 Weight (Pounds): 200 General Appearance: no apparent distress Cardiovascular: normal rate Respiratory/Chest: decreased breath sounds Abdomen: soft Objective other PE not changed ELVIRA PATTERSON November 15, 2016 13:14
--- NOTE | 2016-11-15 14:31 | General Progress Note ---
Assessment/Plan Problem List: (1) Hypochloremia ICD Codes: E87.8 - Other disorders of electrolyte and fluid balance, not elsewhere classified SNOMED: 45788388 (2) Urinary retention ICD Codes: R33.9 - Retention of urine, unspecified SNOMED: 470938830 (3) Hyponatremia ICD Codes: E87.1 - Hypo-osmolality and hyponatremia SNOMED: 28936432 Status: progressing Assessment/Plan very low na hyponatremia is improving need to be on fluid restriction psychogenic polydipsia Subjective ROS Limited/Unobtainable: Yes Allergies: Coded Allergies: No Known Allergies (Unverified , 02/26/16) Objective Last 24 Hour Vital Signs Date Time Temp Pulse Resp B/P Pulse Ox O2 Delivery O2 Flow Rate FiO2 11/15/16 11:17 97.9 63 20 137/65 Nasal Cannula 2.0 11/15/16 10:04 66 142/68 11/15/16 08:00 92 11/15/16 07:53 97.2 66 20 142/68 97 Nasal Cannula 2.0 11/15/16 04:00 98.2 64 20 150/68 98 Room Air 11/15/16 04:00 58 11/15/16 00:00 55 11/15/16 00:00 97.8 65 21 145/67 97 Room Air 11/14/16 20:00 97.7 66 21 125/58 94 Room Air 11/14/16 20:00 52 11/14/16 16:00 57 11/14/16 15:18 97.2 60 20 140/60 97 Nasal Cannula 2.0 11/14/16 14:34 56 141/66 Intake and Output 11/14/16 11/15/16 19:00 07:00 Intake Total 690 ml 540 ml Output Total 3020 ml 2600 ml Balance -2330 ml -2060 ml Intake Oral 360 ml 540 ml IV Total 330 ml Output Urine Total 3020 ml 2600 ml Laboratory Tests 11/14/16 15:55: Sodium Level 123#L, Potassium Level 3.4, Chloride Level 86L, Carbon Dioxide Level 23, Anion Gap 14, Blood Urea Nitrogen 5L, Creatinine 0.7, Estimat Glomerular Filtration Rate > 60, Glucose Level 105, Calcium Level 7.9L, Total Bilirubin 0.8, Aspartate Amino Transf (AST/SGOT) 112H, Alanine Aminotransferase (ALT/SGPT) 56H, Alkaline Phosphatase 110, Total Protein 5.6L, Albumin 3.1L, Globulin 2.5, Albumin/Globulin Ratio 1.2, Hepatitis A IgM Antibody [Pending], Hepatitis B Surface Antigen [Pending], Hepatitis B Surface Antibody [Pending], Hepatitis B Core IgM Antibody [Pending], Hepatitis C Antibody [Pending], HIV (1& 2) Antibody Rapid Negative 11/15/16 07:20: Sodium Level 130L, Potassium Level 3.7, Chloride Level 93L, Carbon Dioxide Level 23, Anion Gap 14, Blood Urea Nitrogen 5L, Creatinine 0.7, Estimat Glomerular Filtration Rate > 60, Glucose Level 92, Calcium Level 8.2L, Total Bilirubin 0.9, Aspartate Amino Transf (AST/SGOT) 117H, Alanine Aminotransferase (ALT/SGPT) 61H, Alkaline Phosphatase 102, Total Protein 6.3L, Albumin 3.4L, Globulin 2.9, Albumin/Globulin Ratio 1.1, White Blood Count 4.7L, Red Blood Count 3.82L, Hemoglobin 12.8L, Hematocrit 36.0L, Mean Corpuscular Volume 94, Mean Corpuscular Hemoglobin 33.4H, Mean Corpuscular Hemoglobin Concent 35.4, Red Cell Distribution Width 11.2L, Platelet Count 167#, Mean Platelet Volume 7.8 , Neutrophils (%) (Auto) 55.7, Lymphocytes (%) (Auto) 25.8, Monocytes (%) (Auto ) 15.8H, Eosinophils (%) (Auto) 1.4, Basophils (%) (Auto) 1.3, Uric Acid 3.9, Phosphorus Level 3.5, Magnesium Level 1.8, C-Reactive Protein, Quantitative < 0.3, Pro-B-Type Natriuretic Peptide 54 Height (Feet): 5 Height (Inches): 7.00 Weight (Pounds): 200 EENT: PERRL/EOMI Neck: supple Respiratory/Chest: lungs clear Elia Buchanan MD November 15, 2016 14:31
--- NOTE | 2016-11-15 14:37 | Infectious Diseases Prog Note ---
Assessment/Plan Problems: (1) Hepatitis Assessment & Plan: hepatitis panel and HIV test are pending , monitor LFT, avoid hepatotoxic meds, recommend GI consult (2) Abdominal pain Assessment & Plan: improved, suspect due to urinary retention , monitor symptoms, consider CT if no improvement (3) Urinary retention Assessment & Plan: rule out enlarged prostate, S/P franklin catheter placement, recommend urology consult (4) Hyponatremia Assessment & Plan: dilutional , due to excessive free water intake , continue fluids restriction, renal is following Subjective Constitutional: Reports: no symptoms HEENT: Reports: no symptoms Respiratory: Reports: no symptoms Breasts: Reports: no symptoms Cardiovascular: Reports: no symptoms Gastrointestinal/Abdominal: Reports: no symptoms Genitourinary: Reports: no symptoms Neurologic: Reports: no symptoms Psychiatric: Reports: depression Skin: Reports: no symptoms Allergies: Coded Allergies: No Known Allergies (Unverified , 02/26/16) Objective Vital Signs Last 24 Hour Vital Signs Date Time Temp Pulse Resp B/P Pulse Ox O2 Delivery O2 Flow Rate FiO2 11/15/16 11:17 97.9 63 20 137/65 Nasal Cannula 2.0 11/15/16 10:04 66 142/68 11/15/16 08:00 92 11/15/16 07:53 97.2 66 20 142/68 97 Nasal Cannula 2.0 11/15/16 04:00 98.2 64 20 150/68 98 Room Air 11/15/16 04:00 58 11/15/16 00:00 55 11/15/16 00:00 97.8 65 21 145/67 97 Room Air 11/14/16 20:00 97.7 66 21 125/58 94 Room Air 11/14/16 20:00 52 11/14/16 16:00 57 11/14/16 15:18 97.2 60 20 140/60 97 Nasal Cannula 2.0 Height (Feet): 5 Height (Inches): 7.00 Weight (Pounds): 200 General Appearance: WD/WN, no acute distress HEENT: normocephalic, atraumatic, anicteric, mucous membranes moist Respiratory/Chest: chest wall non-tender, lungs clear, normal breath sounds, no respiratory distress, no accessory muscle use Cardiovascular: normal peripheral pulses, normal rate, regular rhythm, no gallop/murmur Abdomen: normal bowel sounds, soft, non tender, no organomegaly, non distended , no mass Extremities: no cyanosis, no clubbing Skin: no rash, no lesions Laboratory Tests Test 11/14/16 15:55 11/15/16 07:20 Sodium Level 123 mEQ/L (135-145) #L 130 mEQ/L (135-145) L Potassium Level 3.4 mEQ/L (3.4-4.9) 3.7 mEQ/L (3.4-4.9) Chloride Level 86 mEQ/L (98-107) L 93 mEQ/L (98-107) L Carbon Dioxide Level 23 mEQ/L (20-30) 23 mEQ/L (20-30) Anion Gap 14 (5-15) 14 (5-15) Blood Urea Nitrogen 5 mg/dL (7-23) L 5 mg/dL (7-23) L Creatinine 0.7 mg/dL (0.7-1.2) 0.7 mg/dL (0.7-1.2) Estimat Glomerular Filtration Rate > 60 mL/min (>60) > 60 mL/min (>60) Glucose Level 105 mg/dL (74-106) 92 mg/dL (74-106) Calcium Level 7.9 mg/dL (8.6-10.2) L 8.2 mg/dL (8.6-10.2) L Total Bilirubin 0.8 mg/dL (0.0-1.2) 0.9 mg/dL (0.0-1.2) Aspartate Amino Transf (AST/SGOT) 112 U/L (5-40) H 117 U/L (5-40) H Alanine Aminotransferase (ALT/SGPT) 56 U/L (3-41) H 61 U/L (3-41) H Alkaline Phosphatase 110 U/L (40-129) 102 U/L (40-129) Total Protein 5.6 g/dL (6.6-8.7) L 6.3 g/dL (6.6-8.7) L Albumin 3.1 g/dL (3.5-5.2) L 3.4 g/dL (3.5-5.2) L Globulin 2.5 g/dL 2.9 g/dL Albumin/Globulin Ratio 1.2 (1.0-2.7) 1.1 (1.0-2.7) Hepatitis A IgM Antibody Pending Hepatitis B Surface Antigen Pending Hepatitis B Surface Antibody Pending Hepatitis B Core IgM Antibody Pending Hepatitis C Antibody Pending HIV (1&2) Antibody Rapid Negative (NEGATIVE) White Blood Count 4.7 K/UL (4.8-10.8) L Red Blood Count 3.82 M/UL (4.70-6.10) L Hemoglobin 12.8 G/DL (14.2-18.0) L Hematocrit 36.0 % (42.0-52.0) L Mean Corpuscular Volume 94 FL (80-99) Mean Corpuscular Hemoglobin 33.4 PG (27.0-31.0) H Mean Corpuscular Hemoglobin Concent 35.4 G/DL (32.0-36.0) Red Cell Distribution Width 11.2 % (11.6-14.8) L Platelet Count 167 K/UL (150-450) # Mean Platelet Volume 7.8 FL (6.5-10.1) Neutrophils (%) (Auto) 55.7 % (45.0-75.0) Lymphocytes (%) (Auto) 25.8 % (20.0-45.0) Monocytes (%) (Auto) 15.8 % (1.0-10.0) H Eosinophils (%) (Auto) 1.4 % (0.0-3.0) Basophils (%) (Auto) 1.3 % (0.0-2.0) Uric Acid 3.9 mg/dL (3.0-7.5) Phosphorus Level 3.5 mg/dL (2.5-4.8) Magnesium Level 1.8 mg/dL (1.7-2.5) C-Reactive Protein, Quantitative < 0.3 mg/dL (< 0.5) Pro-B-Type Natriuretic Peptide 54 pg/mL (0-125) Current Medications Medications (Trade) Dose Ordered Sig/Kathleen Route PRN Reason Start Time Stop Time Status Last Admin Dose Admin Dextrose (Dextrose 50%) STAT PRN IV Hypoglycemia 11/14/16 05:45 12/14/16 05:44 Hydralazine HCl (Apresoline) 25 mg Q6HR PRN ORAL bp over 160 syst 11/14/16 10:45 12/14/16 10:44 11/14/16 11:42 Insulin Aspart (NovoLOG) BEFORE MEALS AND HS SUBQ 11/14/16 06:30 12/14/16 06:29 Nifedipine (Procardia XL) 60 mg DAILY ORAL 11/14/16 14:00 12/14/16 13:59 11/15/16 10:04 Olanzapine (ZyPREXA Zydis) 10 mg BEDTIME ORAL 11/15/16 21:00 12/15/16 20:59 Pantoprazole 40 mg 40 mg DAILY ORAL 11/14/16 11:00 12/14/16 10:59 11/14/16 11:42 Sodium Chloride (Hypertonic Saline) 500 ml @ 30 mls/hr ONCE ONCE IV 11/14/16 23:00 11/15/16 15:39 Tamsulosin HCl (Flomax) 0.4 mg BEDTIME ORAL 11/15/16 21:00 12/15/16 20:59 Elke Coffey M.D. November 15, 2016 14:37
[2016-11-15 15:34] VITALS: BP 140/65
[2016-11-15] MEDS ORDERED: Vitamin D 50,000 units cap ORAL SCH (16:30)
[2016-11-15] MEDS ORDERED: Tamsulosin 0.4mg cap ORAL SCH (21:00)
[2016-11-15] MEDS ORDERED: ZyPREXA Zydis 10mg tab ORAL SCH (21:00)
--- NOTE | 2016-11-15 21:58 | Consultation ---
DATE OF CONSULTATION: 11/15/2016 CONSULTING PHYSICIAN: Geri Gutierres M.D. HISTORY OF PRESENT ILLNESS: The patient is a 66-year-old male with a history of mixed psychotic disorder and schizophrenia, has been admitted to the hospital with a chief complaint of abdominal pain. The patient was diagnosed with UTI and electrolyte imbalance. Also he has a history of noncompliance with medication. Psychiatry was consulted as the patient was not taking his medication. He has not been taking olanzapine. During the evaluation, we were discussing medication and the patient appears to be very illogical. He is unable to understand, process, communicate, nor appreciate information given to him in regard to his medical condition. The patient also appears paranoid and his mood is irritable. PAST PSYCHIATRIC HISTORY: The patient has been diagnosed with depression as well as psychotic disorder, has been treated with olanzapine. Denies any suicide attempt in the past. PAST MEDICAL HISTORY: Significant for hepatitis, urinary tract infection, urinary retention, elevated LFTs, and vomiting. ALLERGIES: No known drug allergies. SUBSTANCE ABUSE HISTORY: No history of illicit drug use or alcohol. SOCIAL HISTORY: The patient resides in a [facility]. MENTAL STATUS EXAMINATION: The patient is alert and oriented x3. He was cooperative with the examination, however, he is not taking medication and is noncompliant. Mood is irritable. Affect is constricted congruent with mood. Thought process is concrete. Thought content, there is no suicidal or homicidal ideation. No delusions. Insight and judgment impaired. ASSESSMENT: Marbury I Psychotic disorder, not otherwise specified. Marbury II Deferred. Marbury III Urinary tract infection and electrolyte imbalance. Marbury IV Low. Marbury V Global assessment of functioning is 30. The patient lacks capacity to make any medical decisions or leave against medical advice. PLAN: 1. The patient will be started on Zyprexa 10 mg at bedtime. 2. We will continue to follow. 3. Encourage him to take his medication. Geri Gutierres M.D. DR: PRESTON JOB#: [id number] CC:
[2016-11-16] VITALS: BP 151/70
--- NOTE | 2016-11-16 00:58 | History and Physical Report ---
DATE OF ADMISSION: 11/14/2016 HISTORY OF PRESENT ILLNESS: The patient is a very poor historian, advanced dementia, cannot get any history from the patient. The patient is admitted for worsening acute renal failure and severe hyponatremia. The patient also is a psychiatric patient. The patient is admitted for those reasons, cannot get any history from the patient. PAST MEDICAL HISTORY: Advanced dementia, history of DVT, history of psychosis, polydipsia, pancreatitis, history of coagulopathy, history of chronic renal insufficiency, history of malnutrition, history of arrhythmia, history of diverticulosis and GERD, anemia and constipation, history of seizure disorder, history of subdural hematoma, history of hypothyroidism, anxiety, hypertension, iron deficiency anemia as well as BPH as well as mood disorder. PAST SURGICAL HISTORY: G-tube. MEDICATIONS: Norvasc, Colace, ferrous sulfate, finasteride, hydralazine, iron, Levoxyl, Keppra, lorazepam, and Cozaar. ALLERGIES: No known allergies. SOCIAL HISTORY: Unable to obtain. FAMILY HISTORY: Unable to obtain. REVIEW OF SYSTEMS: Unable to obtain. PHYSICAL EXAMINATION: VITAL SIGNS: Temperature is 97.8 degrees, pulse 91, and blood pressure 165/74. HEENT: PERRLA. NECK: Supple. No lymphadenopathy. CHEST: Clear to auscultation. GASTROINTESTINAL: Soft, nontender, and nondistended. No organomegaly. EXTREMITIES: No edema. NEUROLOGIC: Oriented x1. Does respond to noxious stimuli. Does not follow neurological exam, which is his baseline. LABORATORY DATA: WBC is 5.2, hemoglobin 10.2, and platelets of 133,000. Sodium 150, potassium 3.4, chloride 124, BUN 93, creatinine 2.7, and glucose of 95. ASSESSMENT: 1. Severe hypernatremia, possible dehydration. 2. Acute renal failure on top of chronic renal failure. I have asked Dr. Gutierres, Dr. Arrington, and Dr. Proctor to see the patient for the malnutrition and dehydration and severe hyponatremia as well as for his agitation. Elia Buchanan M.D. DR: DELFINO JOB#: [id number] CC:
[2016-11-16] MEDS: NovoLOG Insulin Flexpen SUBQ SCH ×4 (06:30→21:00)
[2016-11-16 07:44] LABS: ALANINE AMINOTRANSFERASE 56 U/L (3-41); ALBUMIN/GLOBULIN RATIO 1.1 (1.0-2.7); ANION GAP 15 (5-15); ASPARTATE AMINO TRANSFERASE 100 U/L (5-40); CALCIUM 8.2 mg/dL (8.6-10.2); CARBON DIOXIDE 22 mEQ/L (20-30); CHLORIDE 93 mEQ/L (98-107); CREATININE 0.7 mg/dL (0.7-1.2); GLOMERULAR FILTRATION RATE > 60 mL/min (>60); HEMOLYSIS 10; MAGNESIUM 1.9 mg/dL (1.7-2.5); PHOSPHORUS 3.7 mg/dL (2.5-4.8); POTASSIUM 4.1 mEQ/L (3.4-4.9); SODIUM 130 mEQ/L (135-145); TOTAL PROTEIN 6.1 g/dL (6.6-8.7); URIC ACID 3.6 mg/dL (3.0-7.5)
[2016-11-16 08:07] VITALS: BP 147/67
--- NOTE | 2016-11-16 09:54 | General Progress Note ---
Assessment/Plan Status: stable Status Narrative Na 130 Assessment/Plan Low Na likely depletional- improving Urinary obstruction- Abnormal elevation LFTs HTN Hypothyroidism Psych disorders with Polydypsia Assessment/Plan PO fluid restriction synthroid- gastric support per consultants. Psych monitor lytes double flomax dose Subjective ROS Limited/Unobtainable: No Constitutional: Reports: malaise Allergies: Coded Allergies: No Known Allergies (Unverified , 02/26/16) Objective Last 24 Hour Vital Signs Date Time Temp Pulse Resp B/P Pulse Ox O2 Delivery O2 Flow Rate FiO2 11/16/16 09:00 79 147/67 11/16/16 08:07 98.1 79 20 147/67 95 Room Air 11/16/16 00:00 98.1 69 20 151/70 98 Room Air 11/15/16 15:34 97.7 63 20 140/65 95 Nasal Cannula 2.0 11/15/16 11:17 97.9 63 20 137/65 Nasal Cannula 2.0 11/15/16 10:04 66 142/68 Intake and Output 11/15/16 11/16/16 19:00 07:00 Intake Total 480 ml Output Total 4500 ml 2625 ml Balance -4020 ml -2625 ml Intake Oral 480 ml Output Urine Total 4500 ml 2625 ml Laboratory Tests 11/16/16 06:45: Sodium Level 130L, Potassium Level 4.1, Chloride Level 93L, Carbon Dioxide Level 22, Anion Gap 15, Blood Urea Nitrogen 9, Creatinine 0.7, Estimat Glomerular Filtration Rate > 60, Glucose Level 107H, Uric Acid 3.6, Calcium Level 8.2L, Phosphorus Level 3.7, Magnesium Level 1.9, Total Bilirubin 0.6, Aspartate Amino Transf (AST/SGOT) 100H, Alanine Aminotransferase (ALT/SGPT) 56H , Alkaline Phosphatase 114, Total Protein 6.1L, Albumin 3.3L, Globulin 2.8, Albumin/Globulin Ratio 1.1 Height (Feet): 5 Height (Inches): 7.00 Weight (Pounds): 195 General Appearance: no apparent distress Objective other PE not changed ELVIRA PATTERSON November 16, 2016 09:54
[2016-11-16] MEDS ORDERED: Tamsulosin 0.4mg cap ORAL SCH (10:00)
[2016-11-16 12:00] VITALS: BP 144/71
--- NOTE | 2016-11-16 15:24 | General Progress Note ---
Assessment/Plan Problem List: (1) Hypochloremia ICD Codes: E87.8 - Other disorders of electrolyte and fluid balance, not elsewhere classified SNOMED: 06987639 (2) Urinary retention ICD Codes: R33.9 - Retention of urine, unspecified SNOMED: 895770819 (3) Hyponatremia ICD Codes: E87.1 - Hypo-osmolality and hyponatremia SNOMED: 98910294 Status: progressing Assessment/Plan hyponatremia is improving afebrile vitals stable bipolar he says i am in pain all over and has a lot of non specific and vague complaints Subjective ROS Limited/Unobtainable: Yes Constitutional: Reports: no symptoms Allergies: Coded Allergies: No Known Allergies (Unverified , 02/26/16) Objective Last 24 Hour Vital Signs Date Time Temp Pulse Resp B/P Pulse Ox O2 Delivery O2 Flow Rate FiO2 11/16/16 12:00 97.9 58 20 144/71 95 Room Air 11/16/16 09:00 79 147/67 11/16/16 08:07 98.1 79 20 147/67 95 Room Air 11/16/16 00:00 98.1 69 20 151/70 98 Room Air 11/15/16 15:34 97.7 63 20 140/65 95 Nasal Cannula 2.0 Intake and Output 11/15/16 11/16/16 19:00 07:00 Intake Total 480 ml Output Total 4500 ml 2625 ml Balance -4020 ml -2625 ml Intake Oral 480 ml Output Urine Total 4500 ml 2625 ml Laboratory Tests 11/16/16 06:45: Sodium Level 130L, Potassium Level 4.1, Chloride Level 93L, Carbon Dioxide Level 22, Anion Gap 15, Blood Urea Nitrogen 9, Creatinine 0.7, Estimat Glomerular Filtration Rate > 60, Glucose Level 107H, Uric Acid 3.6, Calcium Level 8.2L, Phosphorus Level 3.7, Magnesium Level 1.9, Total Bilirubin 0.6, Aspartate Amino Transf (AST/SGOT) 100H, Alanine Aminotransferase (ALT/SGPT) 56H , Alkaline Phosphatase 114, Total Protein 6.1L, Albumin 3.3L, Globulin 2.8, Albumin/Globulin Ratio 1.1 Height (Feet): 5 Height (Inches): 7.00 Weight (Pounds): 195 EENT: PERRL/EOMI Neck: supple Cardiovascular: normal rate Respiratory/Chest: lungs clear Abdomen: soft Elia Buchanan MD November 16, 2016 15:24
--- NOTE | 2016-11-16 15:35 | Infectious Diseases Prog Note ---
Assessment/Plan Problems: (1) Hepatitis Assessment & Plan: hepatitis panel showed positive HCV ab, will order viral load, HIV test is negative , monitor LFT, avoid hepatotoxic meds, recommend GI consult (2) Abdominal pain Assessment & Plan: suspect due to urinary retension, monitor symptoms, consider CT if no improvement (3) Urinary retention Assessment & Plan: S/P franklin catheter placement, recommend urology consult (4) Hyponatremia Assessment & Plan: suspect dilutional due to free water intake, recommend free water restriction , renal is following Subjective Constitutional: Reports: no symptoms HEENT: Reports: no symptoms Cardiovascular: Reports: no symptoms Gastrointestinal/Abdominal: Reports: no symptoms Genitourinary: Reports: no symptoms Neurologic: Reports: no symptoms Psychiatric: Reports: no symptoms Skin: Reports: no symptoms Endocrine: Reports: no symptoms Allergies: Coded Allergies: No Known Allergies (Unverified , 02/26/16) Objective Vital Signs Last 24 Hour Vital Signs Date Time Temp Pulse Resp B/P Pulse Ox O2 Delivery O2 Flow Rate FiO2 11/16/16 12:00 97.9 58 20 144/71 95 Room Air 11/16/16 09:00 79 147/67 11/16/16 08:07 98.1 79 20 147/67 95 Room Air 11/16/16 00:00 98.1 69 20 151/70 98 Room Air Height (Feet): 5 Height (Inches): 7.00 Weight (Pounds): 195 General Appearance: WD/WN, no acute distress HEENT: normocephalic, atraumatic, anicteric, mucous membranes moist Respiratory/Chest: chest wall non-tender, lungs clear, normal breath sounds, no respiratory distress, no accessory muscle use Cardiovascular: normal peripheral pulses, normal rate, regular rhythm, no gallop/murmur Abdomen: normal bowel sounds, soft, non tender, no organomegaly, non distended , no mass Extremities: no cyanosis, no clubbing Skin: no rash, no lesions Microbiology Date/Time Source Procedure Growth Status 11/14/16 01:00 Rectum VRE Culture - Final NO VANCOMYCIN RESISTANT ENTEROCOCCUS ... Complete Laboratory Tests Test 11/16/16 06:45 Sodium Level 130 mEQ/L (135-145) L Potassium Level 4.1 mEQ/L (3.4-4.9) Chloride Level 93 mEQ/L (98-107) L Carbon Dioxide Level 22 mEQ/L (20-30) Anion Gap 15 (5-15) Blood Urea Nitrogen 9 mg/dL (7-23) Creatinine 0.7 mg/dL (0.7-1.2) Estimat Glomerular Filtration Rate > 60 mL/min (>60) Glucose Level 107 mg/dL (74-106) H Uric Acid 3.6 mg/dL (3.0-7.5) Calcium Level 8.2 mg/dL (8.6-10.2) L Phosphorus Level 3.7 mg/dL (2.5-4.8) Magnesium Level 1.9 mg/dL (1.7-2.5) Total Bilirubin 0.6 mg/dL (0.0-1.2) Aspartate Amino Transf (AST/SGOT) 100 U/L (5-40) H Alanine Aminotransferase (ALT/SGPT) 56 U/L (3-41) H Alkaline Phosphatase 114 U/L (40-129) Total Protein 6.1 g/dL (6.6-8.7) L Albumin 3.3 g/dL (3.5-5.2) L Globulin 2.8 g/dL Albumin/Globulin Ratio 1.1 (1.0-2.7) Current Medications Medications (Trade) Dose Ordered Sig/Kathleen Route PRN Reason Start Time Stop Time Status Last Admin Dose Admin Acetaminophen (Tylenol) 650 mg Q4H PRN ORAL Mild Pain/Temp > 100.5 11/16/16 15:00 12/16/16 14:59 Dextrose (Dextrose 50%) STAT PRN IV Hypoglycemia 11/17/16 05:45 12/17/16 05:44 Ergocalciferol (Drisdol) 50,000 intlu Tu@0900 ORAL 11/22/16 09:00 12/22/16 08:59 Hydralazine HCl (Apresoline) 25 mg Q6HR PRN ORAL bp over 160 syst 11/16/16 18:00 12/16/16 17:59 Insulin Aspart (NovoLOG) BEFORE MEALS AND HS SUBQ 11/16/16 16:30 12/16/16 16:29 Nifedipine (Procardia XL) 60 mg DAILY ORAL 11/17/16 09:00 12/17/16 08:59 Olanzapine (ZyPREXA Zydis) 10 mg BEDTIME ORAL 11/16/16 21:00 12/16/16 20:59 Pantoprazole (Protonix) 40 mg DAILY ORAL 11/17/16 09:00 12/17/16 08:59 Tamsulosin HCl (Flomax) 0.4 mg BID ORAL 11/16/16 18:00 12/16/16 17:59 Elke Coffey M.D. November 16, 2016 15:35
[2016-11-16 16:00] VITALS: BP 152/75
[2016-11-16] MEDS: Tamsulosin 0.4mg cap ORAL SCH (17:14)
--- NOTE | 2016-11-16 18:34 | General Progress Note ---
Assessment/Plan Problem List: (1) Diabetes mellitus ICD Codes: E11.9 - Type 2 diabetes mellitus without complications SNOMED: 64661788 (2) Encounter for generalized patient complaints ICD Codes: Z00.8 - Encounter for other general examination SNOMED: 754538346 (3) Elevated LFTs ICD Codes: R79.89 - Other specified abnormal findings of blood chemistry SNOMED: 896764754 (4) Hypochloremia ICD Codes: E87.8 - Other disorders of electrolyte and fluid balance, not elsewhere classified SNOMED: 79341633 (5) Hyponatremia ICD Codes: E87.1 - Hypo-osmolality and hyponatremia SNOMED: 30797731 Status Narrative Na improved no need for basal insulin continue Novolog insulin coverage Subjective Allergies: Coded Allergies: No Known Allergies (Unverified , 02/26/16) All Systems: reviewed and negative except above Subjective events noted - interval notes reviewed Objective Last 24 Hour Vital Signs Date Time Temp Pulse Resp B/P Pulse Ox O2 Delivery O2 Flow Rate FiO2 11/16/16 18:13 97.9 11/16/16 16:00 97.9 61 18 152/75 99 Room Air 11/16/16 12:00 97.9 58 20 144/71 95 Room Air 11/16/16 09:00 79 147/67 11/16/16 08:07 98.1 79 20 147/67 95 Room Air 11/16/16 00:00 98.1 69 20 151/70 98 Room Air Intake and Output 11/15/16 11/16/16 19:00 07:00 Intake Total 480 ml Output Total 4500 ml 2625 ml Balance -4020 ml -2625 ml Intake Oral 480 ml Output Urine Total 4500 ml 2625 ml Laboratory Tests 11/16/16 06:45: Sodium Level 130L, Potassium Level 4.1, Chloride Level 93L, Carbon Dioxide Level 22, Anion Gap 15, Blood Urea Nitrogen 9, Creatinine 0.7, Estimat Glomerular Filtration Rate > 60, Glucose Level 107H, Uric Acid 3.6, Calcium Level 8.2L, Phosphorus Level 3.7, Magnesium Level 1.9, Total Bilirubin 0.6, Aspartate Amino Transf (AST/SGOT) 100H, Alanine Aminotransferase (ALT/SGPT) 56H , Alkaline Phosphatase 114, Total Protein 6.1L, Albumin 3.3L, Globulin 2.8, Albumin/Globulin Ratio 1.1 5/3/17 16:55: Hepatitis C Antibody [Pending], Hepatitis C RNA (PCR) IUs/ml [Pending], Hepatitis C RNA (PCR) log IUs/ml [Pending], Hepatitis C Genotype [Pending] Height (Feet): 5 Height (Inches): 7.00 Weight (Pounds): 195 General Appearance: no apparent distress Neck: normal alignment Cardiovascular: normal rate Respiratory/Chest: lungs clear Abdomen: normal bowel sounds Edema: no edema noted Arm (L), no edema noted Arm (R), no edema noted Leg (L), no edema noted Leg (R), no edema noted Pedal (L), no edema noted Pedal (R), no edema noted Generalized Objective Current Medications Medications (Trade) Dose Ordered Sig/Kathleen Route PRN Reason Start Time Stop Time Status Last Admin Dose Admin Acetaminophen (Tylenol) 650 mg Q4H PRN ORAL Mild Pain/Temp > 100.5 11/16/16 15:00 12/16/16 14:59 11/16/16 17:14 Dextrose (Dextrose 50%) STAT PRN IV Hypoglycemia 11/17/16 05:45 12/17/16 05:44 Ergocalciferol (Drisdol) 50,000 intlu Tu@0900 ORAL 11/22/16 09:00 12/22/16 08:59 Hydralazine HCl (Apresoline) 25 mg Q6HR PRN ORAL bp over 160 syst 11/16/16 18:00 12/16/16 17:59 Insulin Aspart (NovoLOG) BEFORE MEALS AND HS SUBQ 11/16/16 16:30 12/16/16 16:29 Nifedipine (Procardia XL) 60 mg DAILY ORAL 11/17/16 09:00 12/17/16 08:59 Olanzapine (ZyPREXA Zydis) 10 mg BEDTIME ORAL 11/16/16 21:00 12/16/16 20:59 Pantoprazole (Protonix) 40 mg DAILY ORAL 11/17/16 09:00 12/17/16 08:59 Tamsulosin HCl (Flomax) 0.4 mg BID ORAL 11/16/16 18:00 12/16/16 17:59 11/16/16 17:14 Item Value Date Time Bedside Blood Glucose 110 mg/dl 11/16/16 1630 Bedside Blood Glucose 111 mg/dl 11/16/16 1130 Bedside Blood Glucose 96 mg/dl 11/16/16 0635 Bedside Blood Glucose 119 mg/dl 11/15/16 2109 LINSEY DRISCOLL November 16, 2016 18:33
[2016-11-16 20:00] VITALS: BP 152/76
[2016-11-16] MEDS: ZyPREXA Zydis 10mg tab ORAL SCH (21:26)
[2016-11-17] VITALS: BP 160/72
[2016-11-17 04:00] VITALS: BP 161/71
[2016-11-17] MEDS: NovoLOG Insulin Flexpen SUBQ SCH ×4 (06:30→20:50)
[2016-11-17] MEDS: HydrALAZINE 25mg tab ORAL PRN (06:51)
[2016-11-17 08:12] VITALS: BP 158/69
[2016-11-17] MEDS: Tamsulosin 0.4mg cap ORAL SCH ×2 (09:08→17:35)
--- NOTE | 2016-11-17 10:53 | General Progress Note ---
Assessment/Plan Status: stable Assessment/Plan Low Na likely depletional- improving Urinary obstruction- Abnormal elevation LFTs HTN Hypothyroidism Psych disorders with Polydypsia Assessment/Plan No labs today PO fluid restriction synthroid- gastric support per consultants. Psych monitor lytes double flomax dose Subjective ROS Limited/Unobtainable: No Constitutional: Reports: malaise Allergies: Coded Allergies: No Known Allergies (Unverified , 02/26/16) Objective Last 24 Hour Vital Signs Date Time Temp Pulse Resp B/P Pulse Ox O2 Delivery O2 Flow Rate FiO2 11/17/16 09:07 49 158/69 11/17/16 08:12 97.1 49 14 158/69 98 Room Air 11/17/16 06:51 161/71 11/17/16 04:00 97.2 55 18 161/71 98 Room Air 11/17/16 00:00 97.0 53 18 160/72 98 Room Air 11/16/16 20:00 97.5 52 16 152/76 96 Room Air 11/16/16 18:13 97.9 11/16/16 16:00 97.9 61 18 152/75 99 Room Air 11/16/16 12:00 97.9 58 20 144/71 95 Room Air Intake and Output 11/16/16 11/17/16 19:00 07:00 Intake Total 360 ml 500 ml Output Total 3200 ml 1000 ml Balance -2840 ml -500 ml Intake Oral 360 ml 500 ml Output Urine Total 3200 ml 1000 ml Laboratory Tests 11/16/16 16:55: Hepatitis C Antibody [Pending], Hepatitis C RNA (PCR) IUs/ml [Pending], Hepatitis C RNA (PCR) log IUs/ml [Pending], Hepatitis C Genotype [Pending] Height (Feet): 5 Height (Inches): 7.00 Weight (Pounds): 198 General Appearance: no apparent distress Objective other PE not changed ELVIRA PATTERSON November 17, 2016 10:53
[2016-11-17 12:09] VITALS: BP 134/62
--- NOTE | 2016-11-17 12:53 | General Progress Note ---
Assessment/Plan Problem List: (1) Hypochloremia ICD Codes: E87.8 - Other disorders of electrolyte and fluid balance, not elsewhere classified SNOMED: 07327687 (2) Urinary retention ICD Codes: R33.9 - Retention of urine, unspecified SNOMED: 442763124 (3) Hyponatremia ICD Codes: E87.1 - Hypo-osmolality and hyponatremia SNOMED: 46696385 Status: progressing Assessment/Plan hyponatremia improving dc planning afebrile vitals stable\ Subjective ROS Limited/Unobtainable: Yes Allergies: Coded Allergies: No Known Allergies (Unverified , 02/26/16) Objective Last 24 Hour Vital Signs Date Time Temp Pulse Resp B/P Pulse Ox O2 Delivery O2 Flow Rate FiO2 11/17/16 12:09 97.7 55 20 134/62 96 Room Air 11/17/16 09:07 49 158/69 11/17/16 08:12 97.1 49 14 158/69 98 Room Air 11/17/16 06:51 161/71 11/17/16 04:00 97.2 55 18 161/71 98 Room Air 11/17/16 00:00 97.0 53 18 160/72 98 Room Air 11/16/16 20:00 97.5 52 16 152/76 96 Room Air 11/16/16 18:13 97.9 11/16/16 16:00 97.9 61 18 152/75 99 Room Air Intake and Output 11/16/16 11/17/16 19:00 07:00 Intake Total 360 ml 500 ml Output Total 3200 ml 1000 ml Balance -2840 ml -500 ml Intake Oral 360 ml 500 ml Output Urine Total 3200 ml 1000 ml Laboratory Tests 11/16/16 16:55: Hepatitis C Antibody [Pending], Hepatitis C RNA (PCR) IUs/ml [Pending], Hepatitis C RNA (PCR) log IUs/ml [Pending], Hepatitis C Genotype [Pending] Height (Feet): 5 Height (Inches): 7.00 Weight (Pounds): 198 EENT: PERRL/EOMI Neck: supple Cardiovascular: normal rate Respiratory/Chest: lungs clear Abdomen: non tender Elia Buchanan MD November 17, 2016 12:53
--- NOTE | 2016-11-17 15:42 | Infectious Diseases Prog Note ---
Assessment/Plan Problems: (1) Hepatitis Assessment & Plan: hepatitis panel showed positive HCV ab, await viral load, HIV test is negative , monitor LFT, avoid hepatotoxic meds, recommend GI consult (2) Abdominal pain Assessment & Plan: suspect due to urinary retension, improved, continue to monitor symptoms. (3) Urinary retention Assessment & Plan: S/P franklin catheter placement, recommend urology consult (4) Hyponatremia Assessment & Plan: suspect dilutional due to free water intake, recommend free water restriction , renal is following Subjective Constitutional: Reports: no symptoms HEENT: Reports: no symptoms Respiratory: Reports: no symptoms Breasts: Reports: no symptoms Cardiovascular: Reports: no symptoms Gastrointestinal/Abdominal: Reports: no symptoms Genitourinary: Reports: no symptoms Neurologic: Reports: no symptoms Psychiatric: Reports: no symptoms Skin: Reports: no symptoms Endocrine: Reports: no symptoms Hematologic: Reports: no symptoms Allergies: Coded Allergies: No Known Allergies (Unverified , 02/26/16) Objective Vital Signs Last 24 Hour Vital Signs Date Time Temp Pulse Resp B/P Pulse Ox O2 Delivery O2 Flow Rate FiO2 11/17/16 12:09 97.7 55 20 134/62 96 Room Air 11/17/16 09:07 49 158/69 11/17/16 08:12 97.1 49 14 158/69 98 Room Air 11/17/16 06:51 161/71 11/17/16 04:00 97.2 55 18 161/71 98 Room Air 11/17/16 00:00 97.0 53 18 160/72 98 Room Air 11/16/16 20:00 97.5 52 16 152/76 96 Room Air 11/16/16 18:13 97.9 11/16/16 16:00 97.9 61 18 152/75 99 Room Air Height (Feet): 5 Height (Inches): 7.00 Weight (Pounds): 198 General Appearance: WD/WN, no acute distress HEENT: normocephalic, atraumatic, anicteric, mucous membranes moist, PERRL Respiratory/Chest: chest wall non-tender, lungs clear, normal breath sounds, no respiratory distress, no accessory muscle use Cardiovascular: normal peripheral pulses, normal rate, regular rhythm, no gallop/murmur, no JVD Abdomen: normal bowel sounds, soft, non tender, no organomegaly, non distended , no mass, no scars Extremities: no cyanosis, no clubbing Skin: no rash, no lesions Laboratory Tests Test 11/16/16 16:55 Hepatitis C Antibody Pending Hepatitis C RNA (PCR) IUs/ml Pending Hepatitis C RNA (PCR) log IUs/ml Pending Hepatitis C Genotype Pending Current Medications Medications (Trade) Dose Ordered Sig/Kathleen Route PRN Reason Start Time Stop Time Status Last Admin Dose Admin Acetaminophen (Tylenol) 650 mg Q4H PRN ORAL Mild Pain/Temp > 100.5 11/16/16 15:00 12/16/16 14:59 11/17/16 05:25 Dextrose (Dextrose 50%) STAT PRN IV Hypoglycemia 11/17/16 05:45 12/17/16 05:44 Ergocalciferol (Drisdol) 50,000 intlu Tu@0900 ORAL 11/22/16 09:00 12/22/16 08:59 Hydralazine HCl (Apresoline) 25 mg Q6HR PRN ORAL bp over 160 syst 11/16/16 18:00 12/16/16 17:59 11/17/16 06:51 Insulin Aspart (NovoLOG) BEFORE MEALS AND HS SUBQ 11/16/16 16:30 12/16/16 16:29 Nifedipine (Procardia XL) 60 mg DAILY ORAL 11/17/16 09:00 12/17/16 08:59 11/17/16 09:07 Olanzapine (ZyPREXA Zydis) 10 mg BEDTIME ORAL 11/16/16 21:00 12/16/16 20:59 11/16/16 21:26 Pantoprazole (Protonix) 40 mg DAILY ORAL 11/17/16 09:00 12/17/16 08:59 11/17/16 09:07 Tamsulosin HCl (Flomax) 0.4 mg BID ORAL 11/16/16 18:00 12/16/16 17:59 11/17/16 09:08 Elke Coffey M.D. November 17, 2016 15:42
[2016-11-17] MEDS: Norco 5mg/325mg tab ORAL PRN ×2 (17:35→22:14)
[2016-11-17 20:00] VITALS: BP 128/60
[2016-11-17] MEDS: ZyPREXA Zydis 10mg tab ORAL SCH (20:39)
[2016-11-18] VITALS: BP 133/65
[2016-11-18 04:00] VITALS: BP 152/72
[2016-11-18] MEDS: Norco 5mg/325mg tab ORAL PRN ×2 (06:14→15:31)
[2016-11-18] MEDS: NovoLOG Insulin Flexpen SUBQ SCH ×4 (06:17→21:00)
--- NOTE | 2016-11-18 06:17 | General Progress Note ---
Assessment/Plan Problem List: (1) Diabetes mellitus ICD Codes: E11.9 - Type 2 diabetes mellitus without complications SNOMED: 18200272 (2) Encounter for generalized patient complaints ICD Codes: Z00.8 - Encounter for other general examination SNOMED: 300049956 (3) Elevated LFTs ICD Codes: R79.89 - Other specified abnormal findings of blood chemistry SNOMED: 560497051 (4) Hypochloremia ICD Codes: E87.8 - Other disorders of electrolyte and fluid balance, not elsewhere classified SNOMED: 34385316 (5) Hyponatremia ICD Codes: E87.1 - Hypo-osmolality and hyponatremia SNOMED: 06850149 Status Narrative Na improved glucose well controlled continue sliding scale Subjective Allergies: Coded Allergies: No Known Allergies (Unverified , 02/26/16) All Systems: reviewed and negative except above Subjective events noted - interval notes reviewed Objective Last 24 Hour Vital Signs Date Time Temp Pulse Resp B/P Pulse Ox O2 Delivery O2 Flow Rate FiO2 11/18/16 00:00 97.9 60 20 133/65 94 Room Air 11/17/16 20:00 97.2 60 20 128/60 94 Room Air 11/17/16 18:34 97.7 11/17/16 12:09 97.7 55 20 134/62 96 Room Air 11/17/16 09:07 49 158/69 11/17/16 08:12 97.1 49 14 158/69 98 Room Air 11/17/16 06:51 161/71 Intake and Output 11/17/16 11/18/16 19:00 07:00 Intake Total 460 ml Output Total 1000 ml Balance -540 ml Intake Oral 460 ml Output Urine Total 1000 ml Height (Feet): 5 Height (Inches): 7.00 Weight (Pounds): 198 General Appearance: no apparent distress Neck: normal alignment Cardiovascular: normal rate Respiratory/Chest: lungs clear Abdomen: normal bowel sounds Pelvis: normal external exam Edema: no edema noted Arm (L), no edema noted Arm (R), no edema noted Leg (L), no edema noted Leg (R), no edema noted Pedal (L), no edema noted Pedal (R), no edema noted Generalized Objective Current Medications Medications (Trade) Dose Ordered Sig/Kathleen Route PRN Reason Start Time Stop Time Status Last Admin Dose Admin Acetaminophen (Tylenol) 650 mg Q4H PRN ORAL Mild Pain/Temp > 100.5 11/16/16 15:00 12/16/16 14:59 11/17/16 05:25 Acetaminophen/ Hydrocodone Bitart ([place] 5/325) 1 tab Q4H PRN ORAL pain unrelieved by tylenol 11/17/16 17:15 11/24/16 17:14 11/17/16 22:14 Dextrose (Dextrose 50%) STAT PRN IV Hypoglycemia 11/17/16 05:45 12/17/16 05:44 Ergocalciferol (Drisdol) 50,000 intlu Tu@0900 ORAL 11/22/16 09:00 12/22/16 08:59 Hydralazine HCl (Apresoline) 25 mg Q6HR PRN ORAL bp over 160 syst 11/16/16 18:00 12/16/16 17:59 11/17/16 06:51 Insulin Aspart (NovoLOG) BEFORE MEALS AND HS SUBQ 11/16/16 16:30 12/16/16 16:29 11/17/16 20:50 Nifedipine (Procardia XL) 60 mg DAILY ORAL 11/17/16 09:00 12/17/16 08:59 11/17/16 09:07 Olanzapine (ZyPREXA Zydis) 10 mg BEDTIME ORAL 11/16/16 21:00 12/16/16 20:59 11/17/16 20:39 Pantoprazole (Protonix) 40 mg DAILY ORAL 11/17/16 09:00 12/17/16 08:59 11/17/16 09:07 Tamsulosin HCl (Flomax) 0.4 mg BID ORAL 11/16/16 18:00 12/16/16 17:59 11/17/16 17:35 Item Value Date Time Bedside Blood Glucose 113 mg/dl 11/17/162050 Bedside Blood Glucose 111 mg/dl 11/17/16 164 Bedside Blood Glucose 110 mg/dl 11/17/16 1130 Bedside Blood Glucose 104 mg/dl 11/17/16 0630 LINSEY DRISCOLL November 18, 2016 06:17
[2016-11-18 07:25] LABS: BASOPHILS % (AUTO) 0.7 % (0.0-2.0); EOSINOPHILS % (AUTO) 3.6 % (0.0-3.0); LYMPHOCYTES % (AUTO) 23.4 % (20.0-45.0); MEAN CORPUSCULAR HEMOGLOBIN 33.5 PG (27.0-31.0); MEAN CORPUSCULAR HGB CONC 35.1 G/DL (32.0-36.0); MEAN CORPUSCULAR VOLUME 95 FL (80-99); MEAN PLATELET VOLUME 7.2 FL (6.5-10.1); MONOCYTES % (AUTO) 13.7 % (1.0-10.0); NEUTROPHILS % (AUTO) 58.7 % (45.0-75.0); PLATELET COUNT 171 K/UL (150-450); RED BLOOD COUNT 4.39 M/UL (4.70-6.10); RED CELL DISTRIBUTION WIDTH 11.5 % (11.6-14.8); WHITE BLOOD COUNT 4.4 K/UL (4.8-10.8)
[2016-11-18 07:36] LABS: ALANINE AMINOTRANSFERASE 53 U/L (3-41); ASPARTATE AMINO TRANSFERASE 82 U/L (5-40); CALCIUM 8.8 mg/dL (8.6-10.2); CARBON DIOXIDE 24 mEQ/L (20-30); CREATININE 0.8 mg/dL (0.7-1.2); CRP QUANT < 0.3 mg/dL (< 0.5); GLOMERULAR FILTRATION RATE > 60 mL/min (>60); HEMOLYSIS 8; PHOSPHORUS 4.9 mg/dL (2.5-4.8); TOTAL PROTEIN 6.8 g/dL (6.6-8.7); URIC ACID 5.3 mg/dL (3.0-7.5)
[2016-11-18 08:08] LABS: ANION GAP 14 (5-15); CHLORIDE 94 mEQ/L (98-107); POTASSIUM 3.8 mEQ/L (3.4-4.9); SODIUM 132 mEQ/L (135-145)
[2016-11-18 08:49] VITALS: BP 151/72
[2016-11-18] MEDS: Tamsulosin 0.4mg cap ORAL SCH ×2 (10:28→18:02)
[2016-11-18 12:00] VITALS: BP 161/69
[2016-11-18] MEDS: HydrALAZINE 25mg tab ORAL PRN (12:54)
[2016-11-18 13:08] VITALS: BP 161/69
--- NOTE | 2016-11-18 13:43 | General Progress Note ---
Assessment/Plan Status: stable Status Narrative Na 132 Assessment/Plan Low Na likely depletional- improving Urinary obstruction- Abnormal elevation LFTs HTN Hypothyroidism Psych disorders with Polydypsia Assessment/Plan PO fluid restriction synthroid- gastric support per consultants. Psych monitor lytes double flomax dose DC planning? Subjective ROS Limited/Unobtainable: No Constitutional: Reports: malaise Allergies: Coded Allergies: No Known Allergies (Unverified , 02/26/16) Objective Last 24 Hour Vital Signs Date Time Temp Pulse Resp B/P Pulse Ox O2 Delivery O2 Flow Rate FiO2 11/18/16 13:08 97.7 83 22 161/69 96 Room Air 11/18/16 12:54 161/69 11/18/16 10:29 50 151/72 11/18/16 08:49 97.0 50 19 151/72 96 Room Air 11/18/16 04:00 97.5 54 20 152/72 97 Room Air 11/18/16 00:00 97.9 60 20 133/65 94 Room Air 11/17/16 20:00 97.2 60 20 128/60 94 Room Air 11/17/16 18:34 97.7 Intake and Output 11/17/16 11/18/16 19:00 07:00 Intake Total 460 ml Output Total 1000 ml 0 ml Balance -540 ml 0 ml Intake Oral 460 ml Output Urine Total 1000 ml 0 ml Laboratory Tests 11/18/16 05:05: White Blood Count 4.4L, Red Blood Count 4.39L, Hemoglobin 14.7, Hematocrit 41.9L , Mean Corpuscular Volume 95, Mean Corpuscular Hemoglobin 33.5H, Mean Corpuscular Hemoglobin Concent 35.1, Red Cell Distribution Width 11.5L, Platelet Count 171, Mean Platelet Volume 7.2, Neutrophils (%) (Auto) 58.7, Lymphocytes (%) (Auto) 23.4, Monocytes (%) (Auto) 13.7H, Eosinophils (%) (Auto) 3.6H, Basophils (%) (Auto) 0.7, Sodium Level 132L, Potassium Level 3.8, Chloride Level 94L, Carbon Dioxide Level 24, Anion Gap 14, Blood Urea Nitrogen 9 , Creatinine 0.8, Estimat Glomerular Filtration Rate > 60, Glucose Level 110H, Uric Acid 5.3, Calcium Level 8.8, Phosphorus Level 4.9H, Total Bilirubin 0.8, Aspartate Amino Transf (AST/SGOT) 82H, Alanine Aminotransferase (ALT/SGPT) 53H, Alkaline Phosphatase 102, C-Reactive Protein, Quantitative < 0.3, Pro-B-Type Natriuretic Peptide 37, Total Protein 6.8, Albumin 3.4L, Globulin 3.4, Albumin/ Globulin Ratio 1.0 Height (Feet): 5 Height (Inches): 7.00 Weight (Pounds): 192 General Appearance: no apparent distress Objective other PE not changed ELVIRA PATTERSON November 18, 2016 13:43
--- NOTE | 2016-11-18 15:51 | Infectious Diseases Prog Note ---
Assessment/Plan Problems: (1) Hepatitis Assessment & Plan: due to chronic HCV, hepatitis panel showed positive HCV ab, await viral load, HIV test is negative , monitor LFT, avoid hepatotoxic meds, recommend GI follow up (2) Abdominal pain Assessment & Plan: suspect due to urinary retension, improved, continue to monitor symptoms. (3) Urinary retention Assessment & Plan: S/P franklin catheter placement, recommend urology consult (4) Hyponatremia Assessment & Plan: improving , suspect dilutional due to free water intake, recommend free water restriction , renal is following Subjective Constitutional: Reports: no symptoms HEENT: Reports: no symptoms Respiratory: Reports: no symptoms Cardiovascular: Reports: no symptoms Gastrointestinal/Abdominal: Reports: no symptoms Genitourinary: Reports: no symptoms Neurologic: Reports: no symptoms Psychiatric: Reports: no symptoms Skin: Reports: no symptoms Endocrine: Reports: no symptoms Allergies: Coded Allergies: No Known Allergies (Unverified , 02/26/16) Objective Vital Signs Last 24 Hour Vital Signs Date Time Temp Pulse Resp B/P Pulse Ox O2 Delivery O2 Flow Rate FiO2 11/18/16 13:08 97.7 83 22 161/69 96 Room Air 11/18/16 12:54 161/69 11/18/16 12:00 97.7 83 21 161/69 96 Room Air 11/18/16 10:29 50 151/72 11/18/16 08:49 97.0 50 19 151/72 96 Room Air 11/18/16 04:00 97.5 54 20 152/72 97 Room Air 11/18/16 00:00 97.9 60 20 133/65 94 Room Air 11/17/16 20:00 97.2 60 20 128/60 94 Room Air 11/17/16 18:34 97.7 Height (Feet): 5 Height (Inches): 7.00 Weight (Pounds): 192 General Appearance: WD/WN, no acute distress HEENT: normocephalic, atraumatic, anicteric, mucous membranes moist Respiratory/Chest: chest wall non-tender, lungs clear, normal breath sounds, no respiratory distress, no accessory muscle use Cardiovascular: normal peripheral pulses, normal rate, regular rhythm, no gallop/murmur Abdomen: normal bowel sounds, soft, non tender, no organomegaly, non distended , no mass Extremities: no cyanosis, no clubbing Skin: no rash, no lesions Laboratory Tests Test 11/18/16 05:05 White Blood Count 4.4 K/UL (4.8-10.8) L Red Blood Count 4.39 M/UL (4.70-6.10) L Hemoglobin 14.7 G/DL (14.2-18.0) Hematocrit 41.9 % (42.0-52.0) L Mean Corpuscular Volume 95 FL (80-99) Mean Corpuscular Hemoglobin 33.5 PG (27.0-31.0) H Mean Corpuscular Hemoglobin Concent 35.1 G/DL (32.0-36.0) Red Cell Distribution Width 11.5 % (11.6-14.8) L Platelet Count 171 K/UL (150-450) Mean Platelet Volume 7.2 FL (6.5-10.1) Neutrophils (%) (Auto) 58.7 % (45.0-75.0) Lymphocytes (%) (Auto) 23.4 % (20.0-45.0) Monocytes (%) (Auto) 13.7 % (1.0-10.0) H Eosinophils (%) (Auto) 3.6 % (0.0-3.0) H Basophils (%) (Auto) 0.7 % (0.0-2.0) Sodium Level 132 mEQ/L (135-145) L Potassium Level 3.8 mEQ/L (3.4-4.9) Chloride Level 94 mEQ/L (98-107) L Carbon Dioxide Level 24 mEQ/L (20-30) Anion Gap 14 (5-15) Blood Urea Nitrogen 9 mg/dL (7-23) Creatinine 0.8 mg/dL (0.7-1.2) Estimat Glomerular Filtration Rate > 60 mL/min (>60) Glucose Level 110 mg/dL (74-106) H Uric Acid 5.3 mg/dL (3.0-7.5) Calcium Level 8.8 mg/dL (8.6-10.2) Phosphorus Level 4.9 mg/dL (2.5-4.8) H Total Bilirubin 0.8 mg/dL (0.0-1.2) Aspartate Amino Transf (AST/SGOT) 82 U/L (5-40) H Alanine Aminotransferase (ALT/SGPT) 53 U/L (3-41) H Alkaline Phosphatase 102 U/L (40-129) C-Reactive Protein, Quantitative < 0.3 mg/dL (< 0.5) Pro-B-Type Natriuretic Peptide 37 pg/mL (0-125) Total Protein 6.8 g/dL (6.6-8.7) Albumin 3.4 g/dL (3.5-5.2) L Globulin 3.4 g/dL Albumin/Globulin Ratio 1.0 (1.0-2.7) Current Medications Medications (Trade) Dose Ordered Sig/Kathleen Route PRN Reason Start Time Stop Time Status Last Admin Dose Admin Acetaminophen (Tylenol) 650 mg Q4H PRN ORAL Mild Pain/Temp > 100.5 11/16/16 15:00 12/16/16 14:59 11/17/16 05:25 Acetaminophen/ Hydrocodone Bitart ([place] 5/325) 1 tab Q4H PRN ORAL pain unrelieved by tylenol 11/17/16 17:15 11/24/16 17:14 11/18/16 15:31 Dextrose (Dextrose 50%) STAT PRN IV Hypoglycemia 11/17/16 05:45 12/17/16 05:44 Ergocalciferol (Drisdol) 50,000 intlu Tu@0900 ORAL 11/22/16 09:00 12/22/16 08:59 Hydralazine HCl (Apresoline) 25 mg Q6HR PRN ORAL bp over 160 syst 11/16/16 18:00 12/16/16 17:59 11/18/16 12:54 Insulin Aspart (NovoLOG) BEFORE MEALS AND HS SUBQ 11/16/16 16:30 12/16/16 16:29 11/18/16 12:39 Nifedipine (Procardia XL) 60 mg DAILY ORAL 11/17/16 09:00 12/17/16 08:59 11/18/16 10:29 Olanzapine (ZyPREXA Zydis) 10 mg BEDTIME ORAL 11/16/16 21:00 12/16/16 20:59 11/17/16 20:39 Pantoprazole (Protonix) 40 mg DAILY ORAL 11/17/16 09:00 12/17/16 08:59 11/18/16 10:28 Tamsulosin HCl (Flomax) 0.4 mg BID ORAL 11/16/16 18:00 12/16/16 17:59 11/18/16 10:28 Elke Coffey M.D. November 18, 2016 15:51
--- NOTE | 2016-11-18 16:33 | General Progress Note ---
Assessment/Plan Problem List: (1) Hypochloremia ICD Codes: E87.8 - Other disorders of electrolyte and fluid balance, not elsewhere classified SNOMED: 44844916 (2) Urinary retention ICD Codes: R33.9 - Retention of urine, unspecified SNOMED: 439837325 (3) Hyponatremia ICD Codes: E87.1 - Hypo-osmolality and hyponatremia SNOMED: 55150707 Status: progressing Assessment/Plan hyponatremia improving pt didnt want to be dc today he is also psych patient w bipolar and schizoaffective disorder had generalized complaints mainly fatigue and weakness so had to cancel dc Subjective ROS Limited/Unobtainable: Yes Constitutional: Reports: no symptoms Allergies: Coded Allergies: No Known Allergies (Unverified , 02/26/16) Objective Last 24 Hour Vital Signs Date Time Temp Pulse Resp B/P Pulse Ox O2 Delivery O2 Flow Rate FiO2 11/18/16 13:08 97.7 83 22 161/69 96 Room Air 11/18/16 12:54 161/69 11/18/16 12:00 97.7 83 21 161/69 96 Room Air 11/18/16 10:29 50 151/72 11/18/16 08:49 97.0 50 19 151/72 96 Room Air 11/18/16 04:00 97.5 54 20 152/72 97 Room Air 11/18/16 00:00 97.9 60 20 133/65 94 Room Air 11/17/16 20:00 97.2 60 20 128/60 94 Room Air 11/17/16 18:34 97.7 Intake and Output 11/17/16 11/18/16 19:00 07:00 Intake Total 460 ml Output Total 1000 ml 0 ml Balance -540 ml 0 ml Intake Oral 460 ml Output Urine Total 1000 ml 0 ml Laboratory Tests 11/18/16 05:05: White Blood Count 4.4L, Red Blood Count 4.39L, Hemoglobin 14.7, Hematocrit 41.9L , Mean Corpuscular Volume 95, Mean Corpuscular Hemoglobin 33.5H, Mean Corpuscular Hemoglobin Concent 35.1, Red Cell Distribution Width 11.5L, Platelet Count 171, Mean Platelet Volume 7.2, Neutrophils (%) (Auto) 58.7, Lymphocytes (%) (Auto) 23.4, Monocytes (%) (Auto) 13.7H, Eosinophils (%) (Auto) 3.6H, Basophils (%) (Auto) 0.7, Sodium Level 132L, Potassium Level 3.8, Chloride Level 94L, Carbon Dioxide Level 24, Anion Gap 14, Blood Urea Nitrogen 9 , Creatinine 0.8, Estimat Glomerular Filtration Rate > 60, Glucose Level 110H, Uric Acid 5.3, Calcium Level 8.8, Phosphorus Level 4.9H, Total Bilirubin 0.8, Aspartate Amino Transf (AST/SGOT) 82H, Alanine Aminotransferase (ALT/SGPT) 53H, Alkaline Phosphatase 102, C-Reactive Protein, Quantitative < 0.3, Pro-B-Type Natriuretic Peptide 37, Total Protein 6.8, Albumin 3.4L, Globulin 3.4, Albumin/ Globulin Ratio 1.0 Height (Feet): 5 Height (Inches): 7.00 Weight (Pounds): 192 Neck: supple Cardiovascular: normal rate Respiratory/Chest: lungs clear Abdomen: soft Elia Buchanan MD November 18, 2016 16:33
[2016-11-18] MEDS: LORazepam Inj 2mg/ml 1ml IV PRN (18:05)
[2016-11-18 20:00] VITALS: BP 136/66
[2016-11-18] MEDS: ZyPREXA Zydis 10mg tab ORAL SCH (21:03)
[2016-11-19] VITALS: BP 157/68
[2016-11-19 04:00] VITALS: BP 129/75
[2016-11-19] MEDS: NovoLOG Insulin Flexpen SUBQ SCH ×4 (06:23→20:41)
[2016-11-19 08:15] VITALS: BP 134/71
[2016-11-19] MEDS: Tamsulosin 0.4mg cap ORAL SCH ×2 (08:46→17:30)
[2016-11-19] MEDS: Norco 5mg/325mg tab ORAL PRN ×2 (08:46→17:30)
--- NOTE | 2016-11-19 08:55 | General Progress Note ---
Assessment/Plan Problem List: (1) Hypochloremia ICD Codes: E87.8 - Other disorders of electrolyte and fluid balance, not elsewhere classified SNOMED: 77717971 (2) Urinary retention ICD Codes: R33.9 - Retention of urine, unspecified SNOMED: 843635239 (3) Hyponatremia ICD Codes: E87.1 - Hypo-osmolality and hyponatremia SNOMED: 32665663 Status: progressing Assessment/Plan hyponatremia psych patient is improving afebrile check the lytes Subjective ROS Limited/Unobtainable: Yes Constitutional: Reports: no symptoms Allergies: Coded Allergies: No Known Allergies (Unverified , 02/26/16) Objective Last 24 Hour Vital Signs Date Time Temp Pulse Resp B/P Pulse Ox O2 Delivery O2 Flow Rate FiO2 11/19/16 08:47 64 134/71 11/19/16 08:15 97.3 64 18 134/71 98 Room Air 11/19/16 04:00 97.9 61 20 129/75 97 Room Air 11/19/16 00:00 98.1 67 20 157/68 95 Room Air 11/18/16 20:00 98.1 64 20 136/66 96 Room Air 11/18/16 13:08 97.7 83 22 161/69 96 Room Air 11/18/16 12:54 161/69 11/18/16 12:00 97.7 83 21 161/69 96 Room Air 11/18/16 10:29 50 151/72 Intake and Output 11/18/16 11/19/16 19:00 07:00 Intake Total 800 ml 200 ml Balance 800 ml 200 ml Intake Oral 800 ml 200 ml # Voids 2 2 Height (Feet): 5 Height (Inches): 7.00 Weight (Pounds): 190 Cardiovascular: normal rate Respiratory/Chest: lungs clear Abdomen: soft Elia Buchanan MD November 19, 2016 08:55
[2016-11-19] MEDS: LORazepam Inj 2mg/ml 1ml IV PRN ×2 (09:57→17:51)
--- NOTE | 2016-11-19 10:19 | General Progress Note ---
Assessment/Plan Status: stable Status Narrative refused discharge yesterday- Anxiety and Psych issues Assessment/Plan status: Low Na likely depletional- improving Urinary obstruction- Abnormal elevation LFTs HTN Hypothyroidism Psych disorders with Polydypsia Assessment/Plan PO fluid restriction synthroid- gastric support per consultants. Psych monitor lytes double flomax dose DC planning? due visit by Psychiatrist Subjective ROS Limited/Unobtainable: No Allergies: Coded Allergies: No Known Allergies (Unverified , 02/26/16) Objective Last 24 Hour Vital Signs Date Time Temp Pulse Resp B/P Pulse Ox O2 Delivery O2 Flow Rate FiO2 11/19/16 08:47 64 134/71 11/19/16 08:15 97.3 64 18 134/71 98 Room Air 11/19/16 04:00 97.9 61 20 129/75 97 Room Air 11/19/16 00:00 98.1 67 20 157/68 95 Room Air 11/18/16 20:00 98.1 64 20 136/66 96 Room Air 11/18/16 13:08 97.7 83 22 161/69 96 Room Air 11/18/16 12:54 161/69 11/18/16 12:00 97.7 83 21 161/69 96 Room Air 11/18/16 10:29 50 151/72 Intake and Output 11/18/16 11/19/16 19:00 07:00 Intake Total 800 ml 200 ml Balance 800 ml 200 ml Intake Oral 800 ml 200 ml # Voids 2 2 Height (Feet): 5 Height (Inches): 7.00 Weight (Pounds): 190 General Appearance: no apparent distress Objective other PE not changed ELVIRA PATTERSON November 19, 2016 10:19
[2016-11-19 12:00] VITALS: BP 139/77
--- NOTE | 2016-11-19 14:44 | Infectious Diseases Prog Note ---
Assessment/Plan Problems: (1) Hepatitis Assessment & Plan: due to chronic HCV, hepatitis panel showed positive HCV ab, await viral load, HIV test is negative , monitor LFT, avoid hepatotoxic meds, recommend GI follow up (2) Abdominal pain Assessment & Plan: suspect due to urinary retension, improved, continue to monitor symptoms. (3) Urinary retention Assessment & Plan: rule out BPH, S/P franklin catheter placement, recommend urology consult and follow up (4) Hyponatremia Assessment & Plan: improving , suspect dilutional due to free water intake, recommend free water restriction , renal is following Subjective Constitutional: Reports: no symptoms HEENT: Reports: no symptoms Respiratory: Reports: no symptoms Cardiovascular: Reports: no symptoms Gastrointestinal/Abdominal: Reports: no symptoms Genitourinary: Reports: no symptoms Neurologic: Reports: no symptoms Psychiatric: Reports: no symptoms Skin: Reports: no symptoms Allergies: Coded Allergies: No Known Allergies (Unverified , 02/26/16) Objective Vital Signs Last 24 Hour Vital Signs Date Time Temp Pulse Resp B/P Pulse Ox O2 Delivery O2 Flow Rate FiO2 11/19/16 12:00 97.7 53 18 139/77 98 Room Air 11/19/16 09:45 97.3 11/19/16 08:47 64 134/71 11/19/16 08:15 97.3 64 18 134/71 98 Room Air 11/19/16 04:00 97.9 61 20 129/75 97 Room Air 11/19/16 00:00 98.1 67 20 157/68 95 Room Air 11/18/16 20:00 98.1 64 20 136/66 96 Room Air Height (Feet): 5 Height (Inches): 7.00 Weight (Pounds): 190 General Appearance: WD/WN, no acute distress HEENT: normocephalic, atraumatic, anicteric, mucous membranes moist Respiratory/Chest: chest wall non-tender, lungs clear, normal breath sounds, no respiratory distress, no accessory muscle use Cardiovascular: normal peripheral pulses, normal rate, regular rhythm Abdomen: normal bowel sounds, soft, non tender, no organomegaly, non distended , no mass Extremities: no cyanosis, no clubbing Skin: no rash, no lesions Current Medications Medications (Trade) Dose Ordered Sig/Kathleen Route PRN Reason Start Time Stop Time Status Last Admin Dose Admin Acetaminophen (Tylenol) 650 mg Q4H PRN ORAL Mild Pain/Temp > 100.5 11/16/16 15:00 12/16/16 14:59 11/17/16 05:25 Acetaminophen/ Hydrocodone Bitart ([place] 5/325) 1 tab Q4H PRN ORAL pain unrelieved by tylenol 11/17/16 17:15 11/24/16 17:14 11/19/16 08:46 Dextrose (Dextrose 50%) STAT PRN IV Hypoglycemia 11/17/16 05:45 12/17/16 05:44 Ergocalciferol (Drisdol) 50,000 intlu Tu@0900 ORAL 11/22/16 09:00 12/22/16 08:59 Hydralazine HCl (Apresoline) 25 mg Q6HR PRN ORAL bp over 160 syst 11/16/16 18:00 12/16/16 17:59 11/18/16 12:54 Insulin Aspart (NovoLOG) BEFORE MEALS AND HS SUBQ 11/16/16 16:30 12/16/16 16:29 11/18/16 12:39 Lorazepam (Ativan 2mg/ml 1ml) 2 mg Q6H PRN IV For Anxiety 11/18/16 17:15 11/25/16 17:14 11/19/16 09:57 Nifedipine (Procardia XL) 60 mg DAILY ORAL 11/17/16 09:00 12/17/16 08:59 11/19/16 08:47 Olanzapine (ZyPREXA Zydis) 10 mg BEDTIME ORAL 11/16/16 21:00 12/16/16 20:59 11/18/16 21:03 Pantoprazole (Protonix) 40 mg DAILY ORAL 11/17/16 09:00 12/17/16 08:59 11/19/16 08:46 Tamsulosin HCl (Flomax) 0.4 mg BID ORAL 11/16/16 18:00 12/16/16 17:59 11/19/16 08:46 Elke Coffey M.D. November 19, 2016 14:44
[2016-11-19 16:00] VITALS: BP 137/72
[2016-11-19 20:00] VITALS: BP 143/79
[2016-11-19] MEDS: ZyPREXA Zydis 10mg tab ORAL SCH (20:41)
[2016-11-19 21:11] LABS: HEP C VIRUS RNA (LOG IU/ML) 6.557 (.); HEPATITIS C QUANT 3606450 IU/mL (.)
[2016-11-20] VITALS: BP 123/67
[2016-11-20 04:00] VITALS: BP 140/79
[2016-11-20] MEDS: NovoLOG Insulin Flexpen SUBQ SCH (05:48)
[2016-11-20 08:00] VITALS: BP 148/73
[2016-11-20] MEDS: LORazepam Inj 2mg/ml 1ml IV PRN (09:11)
[2016-11-20] MEDS: Norco 5mg/325mg tab ORAL PRN (09:12)
[2016-11-20] MEDS: Tamsulosin 0.4mg cap ORAL SCH (09:34)
--- NOTE | 2016-11-20 10:50 | General Progress Note ---
Assessment/Plan Problem List: (1) Diabetes mellitus ICD Codes: E11.9 - Type 2 diabetes mellitus without complications SNOMED: 31068987 (2) Encounter for generalized patient complaints ICD Codes: Z00.8 - Encounter for other general examination SNOMED: 079804002 (3) Elevated LFTs ICD Codes: R79.89 - Other specified abnormal findings of blood chemistry SNOMED: 105789685 (4) Hypochloremia ICD Codes: E87.8 - Other disorders of electrolyte and fluid balance, not elsewhere classified SNOMED: 97523602 (5) Hyponatremia ICD Codes: E87.1 - Hypo-osmolality and hyponatremia SNOMED: 50398044 Assessment/Plan serum Na improved glucose well controlled continue Novolog sliding scale ac / hs Subjective Allergies: Coded Allergies: No Known Allergies (Unverified , 02/26/16) All Systems: reviewed and negative except above Subjective events noted - interval notes reviewed Objective Last 24 Hour Vital Signs Date Time Temp Pulse Resp B/P Pulse Ox O2 Delivery O2 Flow Rate FiO2 11/20/16 09:34 64 148/73 11/20/16 08:00 96.7 64 18 148/73 99 Room Air 11/20/16 04:00 98.1 61 18 140/79 99 Room Air 11/20/16 00:00 97.9 60 20 123/67 97 Room Air 11/19/16 20:00 98.1 63 20 143/79 97 Room Air 11/19/16 18:29 97.2 11/19/16 16:00 97.2 56 18 137/72 98 Room Air 11/19/16 12:00 97.7 53 18 139/77 98 Room Air Intake and Output 11/19/16 11/20/16 19:00 07:00 Intake Total 480 ml 600 ml Balance 480 ml 600 ml Intake Oral 480 ml 600 ml # Voids 4 2 Height (Feet): 5 Height (Inches): 7.00 Weight (Pounds): 195 General Appearance: no apparent distress Neck: normal alignment Cardiovascular: normal rate Respiratory/Chest: lungs clear Abdomen: normal bowel sounds Pelvis: normal external exam Edema: no edema noted Arm (L), no edema noted Arm (R), no edema noted Leg (L), no edema noted Leg (R), no edema noted Pedal (L), no edema noted Pedal (R), no edema noted Generalized Objective Current Medications Medications (Trade) Dose Ordered Sig/Kathleen Route PRN Reason Start Time Stop Time Status Last Admin Dose Admin Acetaminophen (Tylenol) 650 mg Q4H PRN ORAL Mild Pain/Temp > 100.5 11/16/16 15:00 12/16/16 14:59 11/17/16 05:25 Acetaminophen/ Hydrocodone Bitart ([place] 5/325) 1 tab Q4H PRN ORAL pain unrelieved by tylenol 11/17/16 17:15 11/24/16 17:14 11/20/16 09:12 Dextrose (Dextrose 50%) STAT PRN IV Hypoglycemia 11/17/16 05:45 12/17/16 05:44 Ergocalciferol (Drisdol) 50,000 intlu Tu@0900 ORAL 11/22/16 09:00 12/22/16 08:59 Hydralazine HCl (Apresoline) 25 mg Q6HR PRN ORAL bp over 160 syst 11/16/16 18:00 12/16/16 17:59 11/18/16 12:54 Insulin Aspart (NovoLOG) BEFORE MEALS AND HS SUBQ 11/16/16 16:30 12/16/16 16:29 11/18/16 12:39 Lorazepam (Ativan 2mg/ml 1ml) 2 mg Q6H PRN IV For Anxiety 11/18/16 17:15 11/25/16 17:14 11/20/16 09:11 Nifedipine (Procardia XL) 60 mg DAILY ORAL 11/17/16 09:00 12/17/16 08:59 11/20/16 09:34 Olanzapine (ZyPREXA Zydis) 10 mg BEDTIME ORAL 11/16/16 21:00 12/16/16 20:59 11/19/16 20:41 Pantoprazole (Protonix) 40 mg DAILY ORAL 11/17/16 09:00 12/17/16 08:59 11/20/16 09:34 Tamsulosin HCl (Flomax) 0.4 mg BID ORAL 11/16/16 18:00 12/16/16 17:59 11/20/16 09:34 Item Value Date Time Bedside Blood Glucose 105 mg/dl 11/20/16 0610 Bedside Blood Glucose 107 mg/dl 11/19/162054 Bedside Blood Glucose 93 mg/dl 11/19/16 1630 Bedside Blood Glucose 87 mg/dl 11/19/16 1130 Bedside Blood Glucose 93 mg/dl 11/19/16 0623 LINSEY DRISCOLL November 20, 2016 10:50
--- NOTE | 2016-11-20 11:45 | General Progress Note ---
Assessment/Plan Status: stable Assessment/Plan status: Low Na likely depletional- improving Urinary obstruction- Abnormal elevation LFTs HTN Hypothyroidism Psych disorders with Polydypsia Assessment/Plan PO fluid restriction synthroid- gastric support per consultants. Psych monitor lytes double flomax dose DC planning? due visit by Psychiatrist Subjective ROS Limited/Unobtainable: No Allergies: Coded Allergies: No Known Allergies (Unverified , 02/26/16) Objective Last 24 Hour Vital Signs Date Time Temp Pulse Resp B/P Pulse Ox O2 Delivery O2 Flow Rate FiO2 11/20/16 09:34 64 148/73 11/20/16 08:00 96.7 64 18 148/73 99 Room Air 11/20/16 04:00 98.1 61 18 140/79 99 Room Air 11/20/16 00:00 97.9 60 20 123/67 97 Room Air 11/19/16 20:00 98.1 63 20 143/79 97 Room Air 11/19/16 18:29 97.2 11/19/16 16:00 97.2 56 18 137/72 98 Room Air 11/19/16 12:00 97.7 53 18 139/77 98 Room Air Intake and Output 11/19/16 11/20/16 19:00 07:00 Intake Total 480 ml 600 ml Balance 480 ml 600 ml Intake Oral 480 ml 600 ml # Voids 4 2 Height (Feet): 5 Height (Inches): 7.00 Weight (Pounds): 195 General Appearance: no apparent distress Objective other PE not changed ELVIRA PATTERSON November 20, 2016 11:45
[2016-11-20 12:15] VITALS: BP 132/59
[2016-11-21] MEDS ORDERED: ZYPREXA20 MG ORAL (14:41)
[2016-11-21] MEDS ORDERED: FLOMAX0.4 MG ORAL (14:41)
[2016-11-21] MEDS ORDERED: PROCARDIA XL30 MG ORAL (14:41)
--- NOTE | 2016-11-21 14:50 | Discharge Summary ---
Discharge Summary Hospital Course Date of Admission November 14, 2016 at 00:28 Date of Discharge November 20, 2016 at 11:55 Admitting Diagnosis urinary retension, hyponatremia HPI Gigi Dejesus is a 66 year old male who was admitted on November 14, 2016 at 00: 28 for Urinary Retension, Hyponatremia Hospital Course dc summary #[id number] Discharge Medications New Medications: Nifedipine Xl* (Procardia Xl*) 30 Mg Tab.er.24 60 MG ORAL DAILY, #30 TAB Tamsulosin HCl (Flomax) 0.4 Mg Cap.er.24h 0.4 MG ORAL BID, #60 CAP Changed Medications: Olanzapine (Zyprexa) 20 Mg Tablet 10 MG ORAL DAILY, #30 TAB 0 Refills (Changed from: 20 MG) Continued Medications: Benztropine Mesylate (Benztropine Mesylate) 0.5 Mg Tablet 0.5 MG PO BID, TAB Docusate Sodium* (Docusate Sodium*) 100 Mg Capsule 100 MG ORAL TWICE A DAY, CAP Hydroxyzine Hcl (Hydroxyzine Hcl) 25 Mg Tablet 25 MG PO THREE TIMES A DAY, TAB Ibuprofen* (Motrin*) 600 Mg Tablet 600 MG ORAL FOUR TIMES A DAY, #30 TAB 0 Refills Lorazepam* (Ativan*) 1 Mg Tablet 1 MG ORAL THREE TIMES A DAY, TAB Pantoprazole (Pantoprazole) 20 Mg Tablet.dr 40 MG ORAL DAILY, #10 TAB 0 Refills Paroxetine Hcl* (Paxil*) 20 Mg Tablet 20 MG ORAL DAILY, TAB 0 Refills Sucralfate (Carafate) 1 Gm/10 Ml Oral.susp 1 GM ORAL FOUR TIMES A DAY, ML [Levothyroxine Sodium] () 15 MCG PO DAILY [vitamins&minerals] () 1 TAB PO DAILY Discontinued Medications: Amlodipine Besylate (Norvasc) 5 Mg Tablet 5 MG ORAL DAILY, TAB Discharge Condition Upon Discharge: stable Discharge Disposition Patient was discharged to [facility] () Discharge Diagnoses: Discharge Instructions Discharge Instructions Special Instructions I have been assigned to complete a D/C Summary on this account. I was not involved in the patient management Jailyn Slater NP ([place]) November 21, 2016 14:50
[2016-11-22] MEDS ORDERED: Vitamin D 50,000 units cap ORAL SCH (09:00)
== END 2016-11-20 11:55 | DRG 641 ==
LOC: EDBD 22:29 → EDUNIT# 22:29 → EMR 22:50 → 2E 11-14 00:28 → EDBEDREQ 11-14 01:10 → 4W 11-16 13:25
DX: E87.1 Hypo-osmolality and hyponatremia (principal); N17.9 Acute kidney failure, unspecified; K75.9 Inflammatory liver disease, unspecified; F03.90 Unspecified dementia, unspecified severity, without behavioral disturbance, psychotic disturbance, mood disturbance, and anxiety; I10 Essential (primary) hypertension; R33.9 Retention of urine, unspecified; E03.9 Hypothyroidism, unspecified; E87.8 Other disorders of electrolyte and fluid balance, not elsewhere classified; F20.9 Schizophrenia, unspecified; E11.9 Type 2 diabetes mellitus without complications; K21.9 Gastro-esophageal reflux disease without esophagitis; F31.9 Bipolar disorder, unspecified
CPT/HCPCS: 36415; 80048; 80053; 81003; 82550; 82553; 82962; 83036; 83690; 83735; 83880; 83930; 83935; 84100; 84300; 84443; 84484; 84550; 85025; 85610; 85730; 86140; 86703; 86705; 86709; 86803; 87081; 87340; 87517; 87522; 87902; 93005; 93970; J1815

== ENCOUNTER 2017-12-23 14:11 | Inpatient (IN) | payer MEDICARE, OTHER ==
[~2017-12-23] VITALS: Ht 170.2 cm; Wt 81.6 kg
[~2017-12-23 14:11] MED LIST changes: +ATIVAN1 MG ORAL; +BENZTROPINE ME0.5 MG PO; +CARAFATE1 GM/10 M1 ORAL; +COGENTIN1 MG/ML PO; +DOCUSATE SODIU100 MG ORAL; +DOCUSIL100 M1 ORAL; +FLOMAX0.4 MG ORAL; +HYDROCHLOROTHIA25 MG ORAL; +HYDROXYZINE HCL25 M1 PO; +IBUPROFEN600 MG ORAL; +LANTUS SOL100 UNIT/1 SUBQ; +LANTUS5 UNITS SUBQ; +LEVOTHYROXINE25 MCG ORAL; +Levothyroxine Sodium PO; +MINERALS PO; +NORVASC5 MG ORAL; +OLANZAPINE10 MG ORAL; +Olanzapine PO; +PANTOPRAZOLE SO20 MG ORAL; +PAXIL10 MG/5 ML PO; +PAXIL20 MG ORAL; +PROCARDIA XL30 MG ORAL; +SUCRALFATE1 GM ORAL; +VISTARIL10 MG ORAL; +VITAMINS PO; +ZESTRIL20 MG ORAL; +ZYPREXA20 MG ORAL
[2017-12-23] MEDS ORDERED: DiphenhydrAMINE 50mg/ml Inj IVP ONE (14:15)
[2017-12-23] MEDS ORDERED: Metoclopramide 10mg/2ml Inj IVP ONE (14:15)
[2017-12-23] MEDS ORDERED: Morphine Sulfate 4mg/ml Inj IVP ONE ×2 (14:15→21:15)
--- NOTE | 2017-12-23 14:31 | Emergency Room Report ---
History of Present Illness General Chief Complaint: Abdominal Pain Source: Patient, EMS Present Illness HPI The patient complains of 3 days of nausea and vomiting. He's unable to keep down liquids at this time. He feels weak when he stands. In addition to that he has epigastric pain. He states he's not been able to sleep for 6 days. He also has been poking his finger in his left nostril and there's been some bleeding there. He denies vomiting blood or melena. Denies fevers or chills. No SI or HI. Complains of tooth pain. No headache. No extremity pain. No rashes. No diarrhea. No dysuria. He was admitted November 14 with similar complaints. These are his discharge diagnoses: 1. Acute severe hyponatremia, improved. 2. Acute hypochloremia , improved. 3. Hypertension. 4. Diabetes mellitus. 5. Elevated transaminase or transaminitis. 6. Hypothyroidism. 7. Psychiatric disorder with polydipsia. 8. Chronic hepatitis C infection 9. Urinary retention. 10. Abdominal pain secondary to urinary retention- resolved Allergies: Coded Allergies: No Known Allergies (Unverified , 02/26/16) Patient History Past Medical History: see triage record Social History: Denies: alcohol use, drug use Social History Narrative assisted living Reviewed Nursing Documentation: PMH: Agreed; PSxH: Agreed Nursing Documentation-PMH Hx Diabetes: Yes Hx Cancer: No Hx Gastrointestinal Problems: No Hx Neurological Problems: Yes - Osteoarthritis, muscle weakness Review of Systems All Other Systems: negative except mentioned in HPI Physical Exam Vital Signs Date Time Temp Pulse Resp B/P (MAP) Pulse Ox O2 Delivery O2 Flow Rate FiO2 12/23/17 13:59 98.6 60 18 152/64 98 Room Air 98.6 Sp02 EP Interpretation: reviewed, normal General Appearance: well appearing, no apparent distress, GCS 15 Head: normocephalic Eyes: bilateral eye normal inspection, bilateral eye PERRL ENT: moist mucus membranes, other - Or blood left nare Neck: supple Respiratory: lungs clear, normal breath sounds Cardiovascular #1: regular rate, rhythm Cardiovascular #2: 2+ radial (R) Gastrointestinal: normal inspection, normal bowel sounds, no mass, non- distended, no guarding, no rebound, distended, tenderness - Epigastric, overweight Musculoskeletal: back normal, gait/station normal, normal range of motion Neurologic: alert, oriented x3, motor strength/tone normal, DTRs symmetric, sensory intact, normal gait, speech normal, other - Slight resting tremor Psychiatric: no suicidal/homicidal ideation, anxious Skin: normal inspection, warm/dry Medical Decision Making Diagnostic Impression: Primary Impression: Hyponatremia Additional Impressions: Tooth ache Epistaxis Persistent vomiting UTI (urinary tract infection) Qualified Codes: N30.00 - Acute cystitis without hematuria ER Course Patient presents with abdominal pain and persistent vomiting. Differential includes gastritis, cyclic vomiting syndrome, gastroenteritis, hyponatremia, other electrolyte abnormalities amongst others. The patient will be evaluated with EKG, chest x-ray abdominal films, laboratory. We'll be giving him IV hydration and also Zofran a small dose of morphine and Pepcid. Labs with hyponatremia. Pyuria. Rocephin ordered. Patient improved with analgesia. Patient abusive to staff. Contacted Dr. Buchanan for admission to med floor. Laboratory Tests Test 12/23/17 15:30 12/23/17 17:05 White Blood Count 7.4 K/UL (4.8-10.8) Red Blood Count 3.63 M/UL (4.70-6.10) L Hemoglobin 12.7 G/DL (14.2-18.0) L Hematocrit 34.4 % (42.0-52.0) L Mean Corpuscular Volume 95 FL (80-99) Mean Corpuscular Hemoglobin 35.1 PG (27.0-31.0) H Mean Corpuscular Hemoglobin Concent 37.1 G/DL (32.0-36.0) H Red Cell Distribution Width 11.7 % (11.6-14.8) Platelet Count 140 K/UL (150-450) L Mean Platelet Volume 7.3 FL (6.5-10.1) Neutrophils (%) (Auto) 66.3 % (45.0-75.0) Lymphocytes (%) (Auto) 19.2 % (20.0-45.0) L Monocytes (%) (Auto) 12.6 % (1.0-10.0) H Eosinophils (%) (Auto) 1.1 % (0.0-3.0) Basophils (%) (Auto) 0.9 % (0.0-2.0) Prothrombin Time 13.8 SEC (9.30-11.50) H Prothrombin Time INR 1.3 (0.9-1.1) H PTT 38 SEC (23-33) H Sodium Level 128 MMOL/L (136-145) L Potassium Level 3.1 MMOL/L (3.5-5.1) L Chloride Level 93 MMOL/L (98-107) L Carbon Dioxide Level 24 MMOL/L (21-32) Anion Gap 11 mmol/L (5-15) Blood Urea Nitrogen 1 mg/dL (7-18) L Creatinine 0.7 MG/DL (0.55-1.30) Estimate Glomerular Filtration Rate > 60 mL/min (>60) Glucose Level 137 MG/DL (74-106) H Calcium Level 8.0 MG/DL (8.5-10.1) L Total Bilirubin 1.5 MG/DL (0.2-1.0) H Direct Bilirubin 0.6 MG/DL (0.0-0.3) H Aspartate Amino Transferase (AST) 88 U/L (15-37) H Alanine Aminotransferase (ALT) 52 U/L (12-78) Alkaline Phosphatase 114 U/L (46-116) Total Creatine Kinase 453 U/L (26-308) H Troponin I 0.038 ng/mL (0.000-0.056) Total Protein 7.1 G/DL (6.4-8.2) Albumin 2.8 G/DL (3.4-5.0) L Globulin 4.3 g/dL Albumin/Globulin Ratio 0.7 (1.0-2.7) L Lipase 101 U/L (73-393) Urine Color Winnie Urine Appearance Cloudy Urine pH 7 (4.5-8.0) Urine Specific [place] 1.005 (1.005-1.035) Urine Protein 2+ (NEGATIVE) H Urine Glucose (UA) Negative (NEGATIVE) Urine Ketones Negative (NEGATIVE) Urine Occult Blood 2+ (NEGATIVE) H Urine Nitrite Negative (NEGATIVE) Urine Bilirubin Negative (NEGATIVE) Urine Ictotest Negative Urine Urobilinogen 1 MG/DL (0.0-1.0) H Urine Leukocyte Esterase 3+ (NEGATIVE) H Urine RBC 0-2 /HPF (0 - 0) H Urine WBC Tntc /HPF (0 - 0) H Urine Squamous Epithelial Cells None /LPF (NONE/OCC) Urine Bacteria Many /HPF (NONE) H EKG Diagnostic Results Rate: normal Rhythm: NSR ST Segments: no acute changes Rhythm Strip Diag. Results EP Interpretation: yes Rhythm: NSR, no PVC's, other - PACs Chest X-Ray Diagnostic Results Chest X-Ray Diagnostic Results : Chest X-Ray Ordered: Yes # of Views/Limited/Complete: 1 View Indication: Other Interpretation: no consolidation, no effusion, no pneumothorax, other - Large heart Impression: Other Electronically Signed by: Electronically signed by Naldo Sanchez MD Other X-Ray Diagnostic Results Other X-Ray Diagnostic Results : X-Ray ordered: Abdomen # of Views/Limited Vs Complete: 1 View Indication: Other EP Interpretation: Yes Interpretation: nonspecific bowel gas, no sbo, other - Possibility of gas Impression: Other Electronically Signed by: Electronically signed by Naldo Sanchez MD Last Vital Signs Date Time Temp Pulse Resp B/P (MAP) Pulse Ox O2 Delivery O2 Flow Rate FiO2 12/23/17 21:15 98.6 12/23/17 19:10 18 125/48 98 Room Air 12/23/17 16:00 80 Status: improved Disposition: ADMITTED INPATIENT Condition: Serious Naldo Sanchez M.D. Dec 23, 2017 14:31
--- NOTE | 2017-12-23 15:02 | Diagnostic Imaging Report ---
EXAM: XR Abdomen, 2 Views CLINICAL HISTORY: ABD PAIN TECHNIQUE: Frontal view of the abdomen/pelvis with upright view of the abdomen. COMPARISON: No relevant prior studies available. FINDINGS: Intraperitoneal space: No free air. Gastrointestinal tract: Unremarkable bowel gas pattern. No abnormal distention of large or small bowel loops. No luminal air fluid levels. No evidence of pneumatosis intestinalis, pneumoperitoneum, or portal venous gas. Renal shadows obscured by overlying bowel gas. No suspicious calcifications in the abdomen or pelvis. Bones/joints: Mild degenerative changes at the lumbosacral junction and bilateral hips. IMPRESSION: Nonspecific nonobstructive bowel gas pattern.
--- NOTE | 2017-12-23 15:03 | Diagnostic Imaging Report ---
EXAM: XR Chest, 1 View CLINICAL HISTORY: ABD PAIN TECHNIQUE: Frontal view of the chest. COMPARISON: Chest x-ray dated 02/26/16. FINDINGS: Lungs: Subsegmental atelectasis at periphery of the left lung base. The lungs otherwise appear clear without focal consolidation. Pleural space: Unremarkable. No pneumothorax. Heart: Unremarkable. No cardiomegaly. Mediastinum: Unremarkable. Bones/joints: Unremarkable. Tubes, lines and devices: EKG leads overlie the thorax. IMPRESSION: Subsegmental atelectasis at periphery of the left lung base.
[2017-12-23] MEDS ORDERED: Morphine Sulfate 4mg/ml Inj ONE (15:52)
[2017-12-23 16:00] VITALS: BP 150/60
[2017-12-23 16:00] LABS: INR 1.3 (0.9-1.1)
[2017-12-23 16:02] LABS: BASOPHILS % (AUTO) 0.9 % (0.0-2.0); EOSINOPHILS % (AUTO) 1.1 % (0.0-3.0); HEMATOCRIT 34.4 % (42.0-52.0); HEMOGLOBIN 12.7 G/DL (14.2-18.0); LYMPHOCYTES % (AUTO) 19.2 % (20.0-45.0); MEAN CORPUSCULAR VOLUME 95 FL (80-99); MONOCYTES % (AUTO) 12.6 % (1.0-10.0); NEUTROPHILS % (AUTO) 66.3 % (45.0-75.0); PLATELET COUNT 140 K/UL (150-450); RED BLOOD COUNT 3.63 M/UL (4.70-6.10); RED CELL DISTRIBUTION WIDTH 11.7 % (11.6-14.8); WHITE BLOOD COUNT 7.4 K/UL (4.8-10.8)
[2017-12-23 16:16] LABS: ANION GAP 11 mmol/L (5-15); BLOOD UREA NITROGEN 1 mg/dL (7-18); CARBON DIOXIDE 24 MMOL/L (21-32); CHLORIDE 93 MMOL/L (98-107); CREATININE 0.7 MG/DL (0.55-1.30); POTASSIUM 3.1 MMOL/L (3.5-5.1); SODIUM 128 MMOL/L (136-145)
[2017-12-23 16:28] LABS: ALANINE AMINOTRANSFERASE 52 U/L (12-78); ALBUMIN 2.8 G/DL (3.4-5.0); ALBUMIN/GLOBULIN RATIO 0.7 (1.0-2.7); ALKALINE PHOSPHATASE 114 U/L (46-116); ASPARTATE AMINO TRANSFERASE 88 U/L (15-37); BILIRUBIN,TOTAL 1.5 MG/DL (0.2-1.0); CREATINE KINASE 453 U/L (26-308)
[2017-12-23 16:30] LABS: BILIRUBIN,DIRECT 0.6 MG/DL (0.0-0.3)
[2017-12-23 17:16] LABS: APPEARANCE,URINE CLOUDY; BILIRUBIN, URINE NEGATIVE (NEGATIVE); COLOR,URINE AMBER; GLUCOSE, URINE (UA) NEGATIVE (NEGATIVE); KETONES,URINE NEGATIVE (NEGATIVE); LEUKOCYTE ESTERASE ,URINE 3+ (NEGATIVE); NITRITE,URINE NEGATIVE (NEGATIVE); PH,URINE 7 (4.5-8.0); PROTEIN,URINE 2+ (NEGATIVE); UROBILINOGEN,URINE 1 MG/DL (0.0-1.0)
[2017-12-23] MEDS ORDERED: cefTRIAXone 1 GM in NS 55 ML IVPB ONE (17:45)
[2017-12-23] MEDS ORDERED: DIAZEPAM5 MG ORAL (18:51)
[2017-12-23] MEDS ORDERED: TEMAZEPAM30 MG ORAL (18:51)
[2017-12-23] MEDS ORDERED: SYNTHROID50 MCG ORAL (18:51)
[2017-12-23] MEDS ORDERED: CARAFATE1 G1 ORAL (18:55)
[2017-12-23] MEDS ORDERED: RISPERIDONE M-TA3 MG PO (18:55)
[2017-12-23] MEDS ORDERED: LISINOPRIL10 MG ORAL (18:55)
[2017-12-23] MEDS ORDERED: LITHIUM CARBON300 MG ORAL (18:56)
[2017-12-23] MEDS ORDERED: AMLODIPINE BESYL5 MG ORAL (19:00)
[2017-12-23] MEDS ORDERED: PANTOPRAZOLE SO40 MG ORAL (19:00)
[2017-12-23] MEDS ORDERED: LINZESS290 MCG PO (19:02)
[2017-12-23] MEDS ORDERED: TAMSULOSIN HCL0.4 MG ORAL (19:02)
[2017-12-23] MEDS ORDERED: MULTIVITAMINS1 EA13 ORAL (19:05)
[2017-12-23 19:10] VITALS: BP 125/48
[2017-12-23] MEDS ORDERED: IBUPROFEN600 MG ORAL ×2 (19:10→23:16)
[2017-12-23] MEDS ORDERED: HALOBETASOL PRO15 GM TP (19:10)
[2017-12-23] MEDS ORDERED: CICLOPIROX45 GM TP (19:10)
[2017-12-23 21:15] VITALS: BP 125/48
[2017-12-23] MEDS ORDERED: BISACODYL5 MG ORAL (23:16)
[2017-12-23] MEDS ORDERED: MEGESTROL ACETA40 MG PO (23:16)
[2017-12-23] MEDS ORDERED: MILK OF MA400 MG/51 ORAL (23:16)
[2017-12-23] MEDS ORDERED: LISINOPRIL20 MG ORAL (23:16)
[2017-12-23] MEDS ORDERED: DOCUSATE SODIU100 M2 ORAL ×2 (23:16)
[2017-12-23] MEDS ORDERED: SODIUM CHLORIDE1 GM PO ×2 (23:16)
[2017-12-23] MEDS ORDERED: SENNA8.6 M2 PO (23:16)
[2017-12-23] MEDS ORDERED: Milk of Magnesia 30ml Ud ORAL PRN (23:30)
[2017-12-23] MEDS ORDERED: Acetaminophen 500mg (ES) tab ORAL PRN (23:30)
[2017-12-23] MEDS: Docusate 100mg cap ORAL SCH (23:58)
[2017-12-24] VITALS (7 sets, daily range): BP systolic 106–186; BP diastolic 55–93
[2017-12-24] MEDS ORDERED: Sodium Chloride 1gm Tab ORAL SCH ×2 (00:01→09:00)
[2017-12-24] MEDS: Lisinopril 20mg tab ORAL SCH ×3 (00:33→18:00)
[2017-12-24] MEDS: Benztropine 1mg tab ORAL ONE ×2 (00:34→01:05)
[2017-12-24] MEDS: Docusate 100mg cap ORAL SCH ×3 (00:35→20:38)
[2017-12-24] MEDS: NovoLOG Insulin Flexpen SUBQ SCH ×4 (06:30→20:45)
[2017-12-24] MEDS: Multivitamin w/Minerals tab ORAL SCH (08:07)
[2017-12-24] MEDS: Sucralfate 1gm tab ORAL SCH ×2 (08:08→17:03)
[2017-12-24 08:17] LABS: BASOPHILS % (AUTO) 1.2 % (0.0-2.0); EOSINOPHILS % (AUTO) 1.9 % (0.0-3.0); HEMATOCRIT 35.5 % (42.0-52.0); LYMPHOCYTES % (AUTO) 24.1 % (20.0-45.0); MEAN CORPUSCULAR VOLUME 96 FL (80-99); MONOCYTES % (AUTO) 13.2 % (1.0-10.0); NEUTROPHILS % (AUTO) 59.6 % (45.0-75.0); PLATELET COUNT 176 K/UL (150-450); WHITE BLOOD COUNT 8.4 K/UL (4.8-10.8)
[2017-12-24] MEDS: Sennosides 8.6mg ORAL SCH (09:00)
[2017-12-24] MEDS: Bisacodyl EC 5mg tab ORAL SCH (09:00)
[2017-12-24] MEDS ORDERED: Tamsulosin 0.4mg cap ORAL SCH ×2 (09:00→21:00)
[2017-12-24 09:02] LABS: ALANINE AMINOTRANSFERASE 57 U/L (12-78); ALBUMIN/GLOBULIN RATIO 0.7 (1.0-2.7); ALKALINE PHOSPHATASE 122 U/L (46-116); ANION GAP 11 mmol/L (5-15); ASPARTATE AMINO TRANSFERASE 94 U/L (15-37); BILIRUBIN,TOTAL 1.4 MG/DL (0.2-1.0); BLOOD UREA NITROGEN 3 mg/dL (7-18); CALCIUM 8.1 MG/DL (8.5-10.1); CARBON DIOXIDE 24 MMOL/L (21-32); CHLORIDE 98 MMOL/L (98-107); CREATININE 0.8 MG/DL (0.55-1.30); POTASSIUM 2.9 MMOL/L (3.5-5.1); SODIUM 133 MMOL/L (136-145)
[2017-12-24 09:13] LABS: BILIRUBIN,DIRECT 0.7 MG/DL (0.0-0.3)
--- NOTE | 2017-12-24 10:28 | Consultation ---
Consult Note Consult Note asked to eval for renal issues The patient complains of 3 days of nausea and vomiting. He's unable to keep down liquids at this time. He feels weak when he stands. In addition to that he has epigastric pain. He states he's not been able to sleep for 6 days. He also has been poking his finger in his left nostril and there's been some bleeding there. He denies vomiting blood or melena. Denies fevers or chills. No SI or HI. Complains of tooth pain. No headache. No extremity pain. No rashes. No diarrhea. No dysuria. He was admitted November 14 with similar complaints. These are his discharge diagnoses: 1. Acute severe hyponatremia, improved. 2. Acute hypochloremia , improved. 3. Hypertension. 4. Diabetes mellitus. 5. Elevated transaminase or transaminitis. 6. Hypothyroidism. 7. Psychiatric disorder with polydipsia. 8. Chronic hepatitis C infection 9. Urinary retention. 10. Abdominal pain secondary to urinary retention- resolved patient examined data reviewed Assessment/Plan HypoNatremia Hypokalemia HypoThyroidism UTI Persistant vomiting LEESA Motjuan IV K lab ordered ELVIRA PATTERSON Dec 24, 2017 10:28
[2017-12-24] MEDS ORDERED: Piperacillin/Tazobactam 3.375 GM in D5W 110 ML IVPB SCH (14:00)
--- NOTE | 2017-12-24 18:00 | Consultation ---
DATE OF CONSULTATION: 12/24/2017 CHIEF COMPLAINT: Abdominal pain, vomiting, nausea, diarrhea. HISTORY OF PRESENT ILLNESS: This is a psychiatric patient, 67 years old, with past medical history of abdominal pain, history of mild anemia, alcohol usage, hepatitis C, prior history of drug abuse, who came to the hospital with complaint of 1 week of nausea, vomiting, and diarrhea. The patient denies any hematemesis. No melena. No hematochezia. Does not recall if he ever had an endoscopy and colonoscopy. PAST MEDICAL HISTORY: 1. History of psychiatric disorder. 2. Alcoholism. 3. History of IV drug abuse. 4. Hepatitis C, untreated. FAMILY HISTORY: Noncontributory. REVIEW OF SYSTEMS: A 10-point review of systems was performed and pertinent positives in the HPI. PAST SURGICAL HISTORY: Tonsillectomy. ALLERGIES: To hay fever. MEDICATIONS: Please see medication reconciliation list. PHYSICAL EXAMINATION: VITAL SIGNS: Temperature is 97.9, pulse is 69, respirations 18, and blood pressure is 186/93. HEENT: Normocephalic and atraumatic. Sclerae anicteric. NECK: Supple. No evidence of lymphadenopathy. CARDIOVASCULAR: Regular rhythm. Plus S1 and S2. No obvious murmur. LUNGS: Decreased breath sounds bilaterally based on supine exam. ABDOMEN: Soft and nontender. No rebound. No guarding. No peritoneal sign. EXTREMITIES: No cyanosis. No clubbing. No edema. LABORATORY DATA: White count is 7.4, hemoglobin 12.7, hematocrit 34, platelet count is 140,000. Sodium is 128, potassium is 3.1, BUN is 1, creatinine is 0.7, glucose is 137. Bilirubin is 1.5. AST of 88, ALT of 52, alkaline phosphatase 114. Albumin is 2.8. ASSESSMENT: This is a 67-year-old male with psychiatric disorder, hepatitis C, history of alcohol abuse. PLAN: We are going to order stool studies to rule out infectious causes for diarrhea. We are going to order repeat laboratories for tomorrow for complete workup the patient's hepatitis C and alcoholic-induced cirrhosis given the patient has hypoalbuminemia and thrombocytopenia. The patient on the CT scan about a year ago, the patient had evidence of varices and there was a questionable nodularity of the liver, so plan will be to order an abdominal ultrasound for tomorrow and do the workup for cirrhosis. The patient most probably will need an endoscopy at least for evaluation of esophageal varices. Also, he needs a colonoscopy for evaluation of the screening for given at this time, he has diarrhea, I do not think he is going to be able to take the prep and he also has low sodium, so we will plan to first do an ultrasound and wait a little bit for him to get better. Hopefully, we will do an endoscopy before he gets discharged from the hospital and schedule him for colonoscopy as an outpatient. Also, he would need outpatient followup for hepatitis C treatment. I want to thank Dr. Elia Buchanan for this kind referral. Hans Proctor M.D. DR: CHRISTIE JOB#: [id number] CC: Elia Buchanan M.D.; Fax#: [phone]
--- NOTE | 2017-12-24 19:45 | Consultation ---
DATE OF CONSULTATION: 12/24/2017 INFECTIOUS DISEASES CONSULTATION CONSULTING PHYSICIAN: Ministerio Emery M.D. REFERRING PHYSICIAN: Elia Buchanan M.D. This consultation has been done on behalf of Dr. Zaheer Mcnair. REASON FOR CONSULTATION: Urinary tract infection. HISTORY OF PRESENTING ILLNESS: This is a 67-year-old gentleman with history of diabetes, hypertension, and hepatitis C, who comes in with nausea and vomiting as well as some epigastric abdominal pain. He denies any fever or chills. He was found to have urinary tract infection and an Infectious Diseases consultation has been obtained for antibiotics. PAST MEDICAL HISTORY: 1. History of diabetes. 2. History of hypertension. 3. History of hypothyroidism. 4. History of hepatitis C. 5. History of psychiatric disorder with polydipsia. 6. History of osteoarthritis. SOCIAL HISTORY: He does not smoke. He used to drink alcohol, but not any more. He has history of drug use intravenously with heroin, methamphetamine, and Speed, but does not do that any more. FAMILY HISTORY: Noncontributory. REVIEW OF SYSTEMS: RESPIRATORY: No fever, chills, cough, shortness of breath, or chest pain. CARDIAC: No chest pain. No palpitations. No dizziness. No syncope. GASTROINTESTINAL: He has nausea and vomiting. He also has epigastric pain. No diarrhea. MEDICATIONS: As an inpatient, he is on amlodipine, potassium, clonidine, Dulcolax, Valium, Colace, Synthroid, multivitamin, Protonix, Senokot, sucralfate, Flomax, insulin, Risperdal, lisinopril, lithium, Colace, Tylenol, Zofran, milk of magnesia, Megace, Restoril. He has received ceftriaxone yesterday. ALLERGIES: No known drug allergies. PHYSICAL EXAMINATION: VITAL SIGNS: Temperature of 98, T-max of 98.7, pulse of 69, respiratory rate of 19, blood pressure 186/93, O2 saturation of 99%. HEENT: Pupils equally reactive to light and accommodation. Mouth appears clean without thrush. NECK: Supple. No adenopathy. No JVD. CARDIOVASCULAR: Regular rate and rhythm. No murmurs. LUNGS: Clear to auscultation bilaterally. No crackles. No wheezes. ABDOMEN: Soft and nontender. No organomegaly. EXTREMITIES: No cyanosis, no clubbing, no edema. LABORATORY DATA: White count 8.4, hemoglobin 13, hematocrit 35.5, MCV 96, platelet count of 176,000. Sodium 133, potassium 2.9, chloride 98, bicarbonate 24, BUN 3, creatinine 0.8, glucose 122, and calcium 8.1. Total bilirubin 1.4, direct bilirubin 0.7, AST 94, ALT 57, alkaline phosphatase 122. Total protein 7.4. Albumin of 3. Lipase of 101. UA showing too numerous to count white cells, rbc 0 to 2. Urine cultures are pending. Chest x-ray is showing subsegmental atelectasis at the periphery of the left lung base. Abdominal x-ray is showing nonspecific nonobstructive bowel gas pattern. ASSESSMENT: This is a 67-year-old gentleman with history of diabetes, hypertension, hepatitis C, and psychiatric disorder with polydipsia, who comes in with: 1. Urinary tract infection. 2. Diabetes. 3. Hypertension. 4. Hepatitis C. 5. Urinary retention. PLAN: 1. We will start the patient on Zosyn. 2. We will follow up cultures and adjust antibiotics accordingly. I would like to thank Dr. Buchanan today for this consultation. Ministerio Emery M.D. DR: PRINCESS JOB#: [id number] CC: Elia Buchanan M.D.; Fax#: [phone]
[2017-12-24] MEDS ORDERED: Levofloxacin 500mg tab ORAL SCH (22:30)
[2017-12-25 00:10] VITALS: BP 125/72
--- NOTE | 2017-12-25 01:00 | History and Physical Report ---
DATE OF ADMISSION: 12/23/2017 REASON FOR ADMISSION: Abdominal pain and hyponatremia. HISTORY OF PRESENT ILLNESS: The patient is a psychiatric patient with past history of aggressive behavior and bipolar schizoaffective disorder. Denies nausea, vomiting, diarrhea, feels very weak, has a lot of psychosis and somatic complaints as well. Denies shortness of breath. Denies cough. Denies orthopnea. PAST MEDICAL HISTORY: Significant for constipation, bipolar, schizoaffective, constipation, NIDDM, hypertension, psychosis, GERD, BPH, hypertension. PAST SURGICAL HISTORY: Denies. ALLERGIES: Hay fever. MEDICATIONS: Colace, diazepam, bisacodyl, Colace, Levoxyl, Linzess, lisinopril, lithium, multivitamin, Protonix, risperidone, Senokot, Carafate, Flomax. FAMILY HISTORY: Noncontributory. SOCIAL HISTORY: No history of smoking, alcohol, or illicit drugs. REVIEW OF SYSTEMS: HEENT: Denies headaches. RESPIRATORY: Denies shortness of breath. Denies cough. CARDIOVASCULAR: Denies chest pain. Denies orthopnea. GASTROINTESTINAL: Reports abdominal pain. Denies vomiting. Denies any diarrhea. Does have abdominal cramps. EXTREMITIES: No pain in the lower extremities. CENTRAL NERVOUS SYSTEM: No change in vision or speech pattern. PHYSICAL EXAMINATION: VITAL SIGNS: Temperature 98.0, pulse 92, blood pressure is 186/93. HEENT: PERRLA. NECK: Supple. No lymphadenopathy. CHEST: Clear to auscultation. CARDIOVASCULAR: Regular rate and rhythm. GASTROINTESTINAL: Epigastric tenderness. No rebound. No organomegaly. Positive bowel sounds. Abdomen is soft. EXTREMITIES: No edema. LABORATORY AND DIAGNOSTIC DATA: WBC of 7.4, hemoglobin 12.7, platelets 140. Sodium 128, potassium 3.1, chloride 93, BUN of 1, creatinine of 0.7, and glucose of 137. AST of 88, ALT of 52. ASSESSMENT/PLAN: 1. Abdominal pain. 2. Hyponatremia/agitation. I have asked Dr. Mcnair and Dr. Arrington to see the patient for the above-mentioned diagnoses and treatment. Antibiotics per Dr. Mcnair. Elia Buchanan M.D. DR: Carter JOB#: [id number] CC:
[2017-12-25 04:04] VITALS: BP 120/69
[2017-12-25] MEDS: NovoLOG Insulin Flexpen SUBQ SCH ×2 (05:58→12:16)
[2017-12-25 06:53] LABS: BASOPHILS % (AUTO) 1.2 % (0.0-2.0); EOSINOPHILS % (AUTO) 2.8 % (0.0-3.0); HEMATOCRIT 33.6 % (42.0-52.0); HEMOGLOBIN 11.7 G/DL (14.2-18.0); LYMPHOCYTES % (AUTO) 29.9 % (20.0-45.0); MEAN CORPUSCULAR VOLUME 97 FL (80-99); MONOCYTES % (AUTO) 14.5 % (1.0-10.0); NEUTROPHILS % (AUTO) 51.6 % (45.0-75.0); PLATELET COUNT 132 K/UL (150-450); RED BLOOD COUNT 3.45 M/UL (4.70-6.10); RED CELL DISTRIBUTION WIDTH 12.3 % (11.6-14.8); WHITE BLOOD COUNT 4.7 K/UL (4.8-10.8)
[2017-12-25 07:00] LABS: INR 1.3 (0.9-1.1)
[2017-12-25 07:12] LABS: AMMONIA 35 umol/L (11-32)
[2017-12-25 07:25] LABS: % IRON SATURATION 12 % (15-50); IRON 34 ug/dL (50-175); TOTAL IRON BINDING CAPACITY 292 ug/dL (250-450)
[2017-12-25 07:26] LABS: ALANINE AMINOTRANSFERASE 50 U/L (12-78); ALBUMIN 2.8 G/DL (3.4-5.0); ALBUMIN/GLOBULIN RATIO 0.7 (1.0-2.7); ALKALINE PHOSPHATASE 128 U/L (46-116); AMYLASE 55 U/L (25-115); ANION GAP 7 mmol/L (5-15); ASPARTATE AMINO TRANSFERASE 74 U/L (15-37); BILIRUBIN,TOTAL 0.8 MG/DL (0.2-1.0); BLOOD UREA NITROGEN 7 mg/dL (7-18); CALCIUM 8.5 MG/DL (8.5-10.1); CARBON DIOXIDE 25 MMOL/L (21-32); CHLORIDE 104 MMOL/L (98-107); CHOLESTEROL 73 MG/DL (< 200); CREATININE 0.8 MG/DL (0.55-1.30); FERRITIN 60 NG/ML (8-388); HDL CHOLESTEROL 22 MG/DL (40-60); POTASSIUM 4.1 MMOL/L (3.5-5.1); SODIUM 136 MMOL/L (136-145); TRIGLYCERIDES 31 MG/DL (30-150)
[2017-12-25 07:29] LABS: CREATINE KINASE 398 U/L (26-308); GAMMA GLUTAMYL TRANSPEPTIDASE 121 U/L (5-85); PHOSPHORUS 3.5 MG/DL (2.5-4.9)
[2017-12-25] MEDS ORDERED: Morphine Sulfate 4mg/ml Inj SUBQ SCH (08:30)
[2017-12-25] MEDS: Docusate 100mg cap ORAL SCH (08:53)
[2017-12-25] MEDS: Sucralfate 1gm tab ORAL SCH (08:54)
[2017-12-25] MEDS: Multivitamin w/Minerals tab ORAL SCH (08:54)
[2017-12-25] MEDS: Bisacodyl EC 5mg tab ORAL SCH (08:55)
[2017-12-25] MEDS: Sennosides 8.6mg ORAL SCH (08:56)
[2017-12-25] MEDS: Lisinopril 20mg tab ORAL SCH (08:59)
[2017-12-25 09:00] VITALS: BP 163/91
[2017-12-25] MEDS ORDERED: Norco 5mg/325mg tab ORAL PRN (10:15)
--- NOTE | 2017-12-25 10:48 | GI Progress Note ---
Assessment/Plan Problems: (1) Abdominal pain ICD Codes: R10.9 - Unspecified abdominal pain SNOMED: 54744779 (2) Persistent vomiting ICD Codes: R11.10 - Vomiting, unspecified SNOMED: 016292920 Status: unchanged Status Narrative Discussed with Dr. Proctor. Assessment/Plan abdominal U/S pending, okay to advance diet after imaging study symptomatic treatment pain mgmt zofran prn stool studies, cdiff ppi fu labs, hep panel outpatient GI procedures Subjective Subjective limited, AMS states he has diarrhea last night Objective Last 24 Hour Vital Signs Date Time Temp Pulse Resp B/P (MAP) Pulse Ox O2 Delivery O2 Flow Rate FiO2 12/25/17 09:00 70 163/91 12/25/17 08:59 163/91 12/25/17 08:49 98.5 12/25/17 04:04 98.5 75 17 120/69 98 98.5 12/25/17 04:04 98 Room Air 12/25/17 00:24 98 Room Air 12/25/17 00:10 97.9 82 18 125/72 98 97.9 12/24/17 20:21 96 Room Air 12/24/17 20:21 98.3 79 18 121/69 96 98.3 12/24/17 18:00 106/55 12/24/17 18:00 57 106/55 12/24/17 16:00 97.8 57 20 106/55 97 97.8 12/24/17 12:00 98.2 98 19 116/65 99 98.2 Intake and Output 12/24/17 12/25/17 19:00 07:00 Intake Total 427.5 ml Balance 427.5 ml Intake Oral 400 ml IV Total 27.5 ml # Voids 3 # Bowel Movements 1 1 Laboratory Tests Test 12/25/17 06:00 White Blood Count 4.7 K/UL (4.8-10.8) L Red Blood Count 3.45 M/UL (4.70-6.10) L Hemoglobin 11.7 G/DL (14.2-18.0) L Hematocrit 33.6 % (42.0-52.0) L Mean Corpuscular Volume 97 FL (80-99) Mean Corpuscular Hemoglobin 33.8 PG (27.0-31.0) H Mean Corpuscular Hemoglobin Concent 34.7 G/DL (32.0-36.0) Red Cell Distribution Width 12.3 % (11.6-14.8) Platelet Count 132 K/UL (150-450) L Mean Platelet Volume 7.2 FL (6.5-10.1) Neutrophils (%) (Auto) 51.6 % (45.0-75.0) Lymphocytes (%) (Auto) 29.9 % (20.0-45.0) Monocytes (%) (Auto) 14.5 % (1.0-10.0) H Eosinophils (%) (Auto) 2.8 % (0.0-3.0) Basophils (%) (Auto) 1.2 % (0.0-2.0) Prothrombin Time 14.1 SEC (9.30-11.50) H Prothromb Time International Ratio 1.3 (0.9-1.1) H Sodium Level 136 MMOL/L (136-145) Potassium Level 4.1 MMOL/L (3.5-5.1) Chloride Level 104 MMOL/L (98-107) Carbon Dioxide Level 25 MMOL/L (21-32) Anion Gap 7 mmol/L (5-15) Blood Urea Nitrogen 7 mg/dL (7-18) Creatinine 0.8 MG/DL (0.55-1.30) Estimat Glomerular Filtration Rate > 60 mL/min (>60) Glucose Level 137 MG/DL (74-106) H Hemoglobin A1c 6.4 % (4.3-6.0) H Uric Acid 4.2 MG/DL (2.6-7.2) Calcium Level 8.5 MG/DL (8.5-10.1) Phosphorus Level 3.5 MG/DL (2.5-4.9) Magnesium Level 1.9 MG/DL (1.8-2.4) Iron Level 34 ug/dL (50-175) L Total Iron Binding Capacity 292 ug/dL (250-450) Percent Iron Saturation 12 % (15-50) L Unsaturated Iron Binding 258 ug/dL (112-346) Ferritin 60 NG/ML (8-388) Total Bilirubin 0.8 MG/DL (0.2-1.0) Gamma Glutamyl Transpeptidase 121 U/L (5-85) H Aspartate Amino Transf (AST/SGOT) 74 U/L (15-37) H Alanine Aminotransferase (ALT/SGPT) 50 U/L (12-78) Alkaline Phosphatase 128 U/L (46-116) H Ammonia 35 umol/L (11-32) H Total Creatine Kinase 398 U/L (26-308) H Pro-B-Type Natriuretic Peptide 22 pg/mL (0-125) Total Protein 6.9 G/DL (6.4-8.2) Albumin 2.8 G/DL (3.4-5.0) L Globulin 4.1 g/dL Albumin/Globulin Ratio 0.7 (1.0-2.7) L Triglycerides Level 31 MG/DL (30-150) Cholesterol Level 73 MG/DL (< 200) LDL Cholesterol 51 mg/dL (<100) HDL Cholesterol 22 MG/DL (40-60) L Cholesterol/HDL Ratio 3.3 (3.3-4.4) Amylase Level 55 U/L (25-115) Lipase 217 U/L (73-393) Alpha Fetoprotein Pending Carcinoembryonic Antigen Pending Vitamin B12 Level 916 PG/ML (193-986) Folate 10.1 NG/ML (8.6-58.9) Free Thyroxine 1.37 NG/DL (0.76-1.46) Height (Feet): 5 Height (Inches): 7.00 Weight (Pounds): 180 General Appearance: WD/WN, no apparent distress, alert Cardiovascular: normal rate Respiratory/Chest: normal breath sounds, no respiratory distress Abdominal Exam: normal bowel sounds, non tender, soft Extremities: normal range of motion, non-tender Nuria Kc NP Dec 25, 2017 10:48
--- NOTE | 2017-12-25 11:44 | Infectious Diseases Prog Note ---
Assessment/Plan Assessment/Plan antibiotics : levoquin A 1. streptococcus UTI 2. DM 3. HTN 4. hepatitis C P 1. continue levoquin 2. will follow up cultures Subjective ROS Limited/Unobtainable: Yes Allergies: Uncoded Allergies: HAY FEVER (Allergy, Intermediate, 12/24/17) Objective Vital Signs Last 24 Hour Vital Signs Date Time Temp Pulse Resp B/P (MAP) Pulse Ox O2 Delivery O2 Flow Rate FiO2 12/25/17 10:52 98.5 12/25/17 09:19 98.5 12/25/17 09:19 98.5 12/25/17 09:00 70 163/91 12/25/17 08:59 163/91 12/25/17 08:49 98.5 12/25/17 04:04 98.5 75 17 120/69 98 98.5 12/25/17 04:04 98 Room Air 12/25/17 00:24 98 Room Air 12/25/17 00:10 97.9 82 18 125/72 98 97.9 12/24/17 20:21 96 Room Air 12/24/17 20:21 98.3 79 18 121/69 96 98.3 12/24/17 18:00 106/55 12/24/17 18:00 57 106/55 12/24/17 16:00 97.8 57 20 106/55 97 97.8 12/24/17 12:00 98.2 98 19 116/65 99 98.2 Height (Feet): 5 Height (Inches): 7.00 Weight (Pounds): 180 Respiratory/Chest: lungs clear Cardiovascular: normal rate, regular rhythm, no gallop/murmur Abdomen: soft, non tender Extremities: no edema Microbiology Date/Time Source Procedure Growth Status 12/23/17 17:05 Urine,Clean Catch Urine Culture - Final Strep Agalactiae Group B Complete Laboratory Tests Test 12/25/17 06:00 White Blood Count 4.7 K/UL (4.8-10.8) L Red Blood Count 3.45 M/UL (4.70-6.10) L Hemoglobin 11.7 G/DL (14.2-18.0) L Hematocrit 33.6 % (42.0-52.0) L Mean Corpuscular Volume 97 FL (80-99) Mean Corpuscular Hemoglobin 33.8 PG (27.0-31.0) H Mean Corpuscular Hemoglobin Concent 34.7 G/DL (32.0-36.0) Red Cell Distribution Width 12.3 % (11.6-14.8) Platelet Count 132 K/UL (150-450) L Mean Platelet Volume 7.2 FL (6.5-10.1) Neutrophils (%) (Auto) 51.6 % (45.0-75.0) Lymphocytes (%) (Auto) 29.9 % (20.0-45.0) Monocytes (%) (Auto) 14.5 % (1.0-10.0) H Eosinophils (%) (Auto) 2.8 % (0.0-3.0) Basophils (%) (Auto) 1.2 % (0.0-2.0) Prothrombin Time 14.1 SEC (9.30-11.50) H Prothromb Time International Ratio 1.3 (0.9-1.1) H Sodium Level 136 MMOL/L (136-145) Potassium Level 4.1 MMOL/L (3.5-5.1) Chloride Level 104 MMOL/L (98-107) Carbon Dioxide Level 25 MMOL/L (21-32) Anion Gap 7 mmol/L (5-15) Blood Urea Nitrogen 7 mg/dL (7-18) Creatinine 0.8 MG/DL (0.55-1.30) Estimat Glomerular Filtration Rate > 60 mL/min (>60) Glucose Level 137 MG/DL (74-106) H Hemoglobin A1c 6.4 % (4.3-6.0) H Uric Acid 4.2 MG/DL (2.6-7.2) Calcium Level 8.5 MG/DL (8.5-10.1) Phosphorus Level 3.5 MG/DL (2.5-4.9) Magnesium Level 1.9 MG/DL (1.8-2.4) Iron Level 34 ug/dL (50-175) L Total Iron Binding Capacity 292 ug/dL (250-450) Percent Iron Saturation 12 % (15-50) L Unsaturated Iron Binding 258 ug/dL (112-346) Ferritin 60 NG/ML (8-388) Total Bilirubin 0.8 MG/DL (0.2-1.0) Gamma Glutamyl Transpeptidase 121 U/L (5-85) H Aspartate Amino Transf (AST/SGOT) 74 U/L (15-37) H Alanine Aminotransferase (ALT/SGPT) 50 U/L (12-78) Alkaline Phosphatase 128 U/L (46-116) H Ammonia 35 umol/L (11-32) H Total Creatine Kinase 398 U/L (26-308) H Pro-B-Type Natriuretic Peptide 22 pg/mL (0-125) Total Protein 6.9 G/DL (6.4-8.2) Albumin 2.8 G/DL (3.4-5.0) L Globulin 4.1 g/dL Albumin/Globulin Ratio 0.7 (1.0-2.7) L Triglycerides Level 31 MG/DL (30-150) Cholesterol Level 73 MG/DL (< 200) LDL Cholesterol 51 mg/dL (<100) HDL Cholesterol 22 MG/DL (40-60) L Cholesterol/HDL Ratio 3.3 (3.3-4.4) Amylase Level 55 U/L (25-115) Lipase 217 U/L (73-393) Alpha Fetoprotein Pending Carcinoembryonic Antigen Pending Vitamin B12 Level 916 PG/ML (193-986) Folate 10.1 NG/ML (8.6-58.9) Free Thyroxine 1.37 NG/DL (0.76-1.46) Current Medications Medications (Trade) Dose Ordered Sig/Kathleen Route PRN Reason Start Time Stop Time Status Last Admin Dose Admin Acetaminophen (Tylenol) 500 mg Q4H PRN ORAL Mild Pain/Temp > 100.5 12/23/17 23:30 01/22/18 23:29 Acetaminophen/ Hydrocodone Bitart ([place] 5/325) 1 tab Q4H PRN ORAL Severe Pain (Pain Scale 7-10) 12/25/17 10:15 01/01/18 10:14 12/25/17 10:52 Amlodipine Besylate (Norvasc) 5 mg BID ORAL 12/24/17 18:00 01/23/18 08:59 12/25/17 09:00 Bisacodyl (Dulcolax) 5 mg DAILY ORAL 12/24/17 09:00 01/23/18 08:59 12/25/17 08:55 Clonidine HCl (Catapres Tab) 0.1 mg Q4H PRN ORAL for bp over 160 syst 12/24/17 09:45 01/23/18 09:44 Dextrose (Dextrose 50%) 25 ml STAT PRN IV Hypoglycemia 12/23/17 23:30 01/22/18 23:29 Dextrose (Dextrose 50%) 50 ml STAT PRN IV Hypoglycemia 12/23/17 23:30 01/22/18 23:29 Diazepam (Valium) 5 mg TID ORAL 12/24/17 09:00 12/31/17 08:59 12/25/17 08:55 Docusate Sodium (Colace) 100 mg QHS ORAL 12/23/17 23:58 01/22/18 23:57 Docusate Sodium (Colace) 200 mg DAILY ORAL 12/24/17 09:00 01/23/18 08:59 12/25/17 08:53 Insulin Aspart (NovoLOG) BEFORE MEALS AND HS SUBQ 12/24/17 06:30 01/23/18 06:29 12/25/17 05:58 Levofloxacin (Levaquin) 500 mg QHS ORAL 12/25/17 21:00 01/01/18 20:59 Levothyroxine Sodium (Synthroid) 50 mcg DAILY ORAL 12/24/17 09:00 01/23/18 08:59 12/25/17 08:55 Lisinopril (Prinivil) 20 mg BID ORAL 12/24/17 18:00 01/22/18 23:58 12/25/17 08:59 [place] Carbonate ([place] Carbonate) 300 mg EVERY 12 HOURS ORAL 12/23/17 23:59 01/22/18 23:58 12/25/17 08:54 Magnesium Hydroxide (Mom) 30 ml Q4HR PRN ORAL Constipation 12/23/17 23:30 01/22/18 23:29 12/24/17 17:03 Multivitamins Therapeutic (Therapeutic Multivitamin) 1 ea DAILY ORAL 12/24/17 09:00 01/23/18 08:59 12/25/17 08:54 Non-Formulary Medication (Non-Formulary Med) 1 ea BID TOPIC 12/24/17 09:00 01/23/18 08:59 UNV Non-Formulary Medication (Non-Formulary Med) 1 ea DAILY ORAL 12/24/17 09:00 01/23/18 08:59 UNV Non-Formulary Medication (Non-Formulary Med) 1 ea DAILY TOPIC 12/24/17 09:00 01/23/18 08:59 UNV Ondansetron HCl (Zofran) 4 mg Q6H PRN IVP Nausea & Vomiting 12/23/17 23:30 01/22/18 23:29 12/24/17 11:31 Pantoprazole (Protonix) 40 mg DAILY ORAL 12/24/17 09:00 01/23/18 08:59 12/25/17 08:54 Risperidone (RisperDAL) 3 mg BID ORAL 12/24/17 00:04 01/23/18 00:03 12/25/17 08:56 Sennosides (Senokot) 1 tab DAILY ORAL 12/24/17 09:00 01/23/18 08:59 12/25/17 08:56 Sucralfate (Carafate) 1 gm BID ORAL 12/24/17 09:00 01/23/18 08:59 12/25/17 08:54 Tamsulosin HCl (Flomax) 0.4 mg QHS ORAL 12/24/17 21:00 01/23/18 08:59 12/24/17 20:35 Temazepam (Restoril) 30 mg HSPRN PRN ORAL Insomnia 12/23/17 23:30 12/30/17 23:29 12/24/17 01:04 KEY BARNARD Dec 25, 2017 11:44
[2017-12-25] MEDS ORDERED: Levofloxacin 500mg tab ORAL SCH (21:00)
--- NOTE | 2017-12-26 08:26 | Discharge Summary ---
Discharge Summary Discharge Summary _ DATE OF ADMISSION: 12/23/2017 DATE OF DISCHARGE: 12/25/2017 REASON FOR ADMISSION: 67 years old male with past medical history significant for hypertension, diabetes mellitus, chronic hepatitis C, psychiatric disorder with polydipsia, ETOH abuse, presented with complaints of 3 days of nausea ,vomiting , epigastric pain, and an episode of diarrhea . He denied fever or chills, he denied melena or bright red blood per rectum. He denied hematemesis. Upon presentation, afebrile . Urinalysis revealed evidence of UTI. No leukocytosis, mild anemia with hemoglobin 12.7 and hematocrit 34.4, sodium 128 ,potassium 3.1 troponin negative. EKG revealed normal sinus rhythm, no acute ischemic changes; chest x-ray showed cardiomegaly, otherwise no acute cardiopulmonary pathology . AST elevated-88.. Lipase within normal limits. Patient was started on the IV hydration. Antiemetics provided along with the analgesic and Pepcid. Patient was started on Rocephin after urine culture collected . Patient was admitted for further management with diagnosis of urinary tract infection, persistent vomiting, hyponatremia ,hypokalemia, diabetes hypertension, history of ETOH, urinary retention, hepatitis C, hypothyroidism, CONSULTANTS: ID specialist Dr. Emery GI specialist Dr. Proctor sign builder Dr. Arrington [facility] COURSE: Patient admitted. GI closely followed patient. Patient was initially on the IV fluids. Diet was slowly introduced, antiemetics were on board as needed. Patient was able to tolerate diet . Potassium was replaced as per sign builder. Potassium stabilized along with sodium; prior to discharge sodium 136 potassium 4.1. Patient was on antibiotic . Urine culture grew strep group B. IV antibiotic changed to oral prior to discharge as per ID recommendations. Blood pressure was managed with calcium channel gisela and ROWENA inhibitor. lDose of Levothyroxine was increased due to elevated TSH. Check TFT in 3-4 weeks. GI prophylaxis provided . Blood sugar was managed with sliding scale insulin. hemoglobin A1c 6.4 .at goal. Pain management provided. and pain was controlled. Initially ,per GI specialist recommendations, stool studies were ordered to rule out infectious causes of diarrhea, however diarrhea abruptly stopped. Patient had history of hepatitis C and probably alcohol induced cirrhosis, given patient hypoalbuminemia and thrombocytopenia. CT scan done about a year ago revealed evidence of varices q and questionable nodularity of the liver. Initially plan was for abdominal ultrasound and workup for cirrhosis. However , since patient clinically improved, GI specialist recommended endoscopy for evaluation of esophageal varices and colonoscopy as screening procedure as outpatient. Patient would also benefit from outpatient treatment for hepatitis C. Patient clinically improved Nausea , vomiting and diarrhea resolved, Patient was able to tolerate diet, Stable electrolytes, afebrile, no leukocytosis. Patient was stable for discharge , outpatient GI procedure recommended. FINAL DIAGNOSES: 1. [] Urinary tract infection with strep group B Hyponatremia Hypokalemia Persistent vomiting and abdominal pain, probably due to underlying alcoholic induced cirrhosis and hepatitis C chronic hepatitis C History of EtOH abuse Hypothyroidism with elevated TSH On diabetes mellitus Hypertension DISCHARGE MEDICATIONS: See Medication Reconciliation list. DISCHARGE INSTRUCTIONS: Patient was discharged to residential facility -[facility]. Patient to follow-up with GI for recommended outpatient f GI procedure, further workup and outpatient treatment ifor hepatitis C. Patient to follow-up with the primary care provider in one week. I have been assigned to dictate discharge summary for this account. I was not involved in the patient's management. Jailyn Slater NP Dec 26, 2017 08:26
--- NOTE | 2017-12-26 14:15 | Cardiology Report ---
APPROVED REPORT EKG Measurement Heart [id number] Sinus rhythm with premature atrial complexes Anteroseptal infarct, age undetermined Abnormal ECG possible non conducted pacs
== END 2017-12-25 14:00 | DRG 690 ==
LOC: EDBD 14:11 → EDBEDREQ 14:19 → EMR 14:50 → EDBEDREQ 17:25 → 4E 21:58 → 4W 12-24 12:31
DX: N39.0 Urinary tract infection, site not specified (principal); E87.1 Hypo-osmolality and hyponatremia; F20.89 Other schizophrenia; E11.9 Type 2 diabetes mellitus without complications; I10 Essential (primary) hypertension; B19.20 Unspecified viral hepatitis C without hepatic coma; R33.9 Retention of urine, unspecified; R11.10 Vomiting, unspecified; B95.1 Streptococcus, group B, as the cause of diseases classified elsewhere; E87.6 Hypokalemia; K70.30 Alcoholic cirrhosis of liver without ascites; B18.2 Chronic viral hepatitis C; F10.21 Alcohol dependence, in remission; E03.9 Hypothyroidism, unspecified; F19.21 Other psychoactive substance dependence, in remission; M19.90 Unspecified osteoarthritis, unspecified site
CPT/HCPCS: 36415; 71045; 74018; 80053; 80061; 81003; 82105; 82140; 82150; 82248; 82378; 82550; 82607; 82728; 82746; 82962; 82977; 83036; 83540; 83550; 83690; 83735; 83880; 84100; 84439; 84443; 84484; 84550; 85025; 85610; 85730; 86140; 87081; 87086; 87181; 93005; 99285; J1815; J2405; J2765; J8499

== ENCOUNTER 2018-04-21 16:48 | Inpatient (IN) | payer MEDICARE, OTHER ==
[~2018-04-21] VITALS: Ht 172.7 cm; Wt 89.8 kg
[~2018-04-21 16:48] MED LIST changes: +AMLODIPINE BESYL5 MG ORAL; +BISACODYL5 MG ORAL; +CICLOPIROX45 GM TP; +DIAZEPAM5 MG ORAL; +DOCUSATE SODIU100 M2 ORAL; +HALOBETASOL PRO15 GM TP; +LINZESS290 MCG PO; +LISINOPRIL10 MG ORAL; +LITHIUM CARBON300 MG ORAL; +MEGESTROL ACETA40 MG PO; +MILK OF MA400 MG/51 ORAL; +MULTIVITAMINS1 EA13 ORAL; +PANTOPRAZOLE SO40 MG ORAL; +RISPERIDONE M-TA3 MG PO; +SENNA8.6 M2 PO; +SODIUM CHLORIDE1 GM PO; +SYNTHROID50 MCG ORAL; +TAMSULOSIN HCL0.4 MG ORAL; +TEMAZEPAM30 MG ORAL
[2018-04-21 17:04] VITALS: BP 176/80
[2018-04-21] MEDS ORDERED: LANTUS SOL100 UNIT/1 SUBQ (17:10)
[2018-04-21 17:51] LABS: APPEARANCE,URINE CLEAR; BASOPHILS % (AUTO) 1.2 % (0.0-2.0); BILIRUBIN, URINE NEGATIVE (NEGATIVE); COLOR,URINE AMBER; EOSINOPHILS % (AUTO) 6.1 % (0.0-3.0); GLUCOSE, URINE (UA) 1+ (NEGATIVE); HEMATOCRIT 37.8 % (42.0-52.0); HEMOGLOBIN 13.1 G/DL (14.2-18.0); KETONES,URINE NEGATIVE (NEGATIVE); LEUKOCYTE ESTERASE ,URINE NEGATIVE (NEGATIVE); MEAN CORPUSCULAR VOLUME 96 FL (80-99); MONOCYTES % (AUTO) 10.8 % (1.0-10.0); NITRITE,URINE NEGATIVE (NEGATIVE); PH,URINE 7 (4.5-8.0); PLATELET COUNT 156 K/UL (150-450); PROTEIN,URINE 1+ (NEGATIVE); RED BLOOD COUNT 3.92 M/UL (4.70-6.10); RED CELL DISTRIBUTION WIDTH 12.9 % (11.6-14.8); UROBILINOGEN,URINE 4 MG/DL (0.0-1.0); WHITE BLOOD COUNT 8.1 K/UL (4.8-10.8)
--- NOTE | 2018-04-21 17:53 | Emergency Room Report ---
History of Present Illness General Chief Complaint: Behavioral Complaint Source: Patient, EMS Present Illness HPI Patient presents via private ambulance with complaint of wanting to kill himself. He told EMS he would jump in front of traffic. He states he's very depressed at the place where he is living at this time and refuses to go back. He has pain all throughout his body. Also has swelling in his legs. He states he has a headache. Pain reported 10/10 throughout body. Aching. Denies fever, chills, NVD, cough, dyspnea, rashes. H/O diabetes. H/O osteoarthritis. H/O pneumonia and COPD though denies smoking. Allergies: Uncoded Allergies: HAY FEVER (Allergy, Intermediate, 12/24/17) Patient History Past Medical History: see triage record Social History: Denies: smoking Social History Narrative from [place] Reviewed Nursing Documentation: PMH: Agreed; PSxH: Agreed Nursing Documentation-[facility] Past Medical History: No History, Except For Hx Diabetes: Yes Hx Cancer: No Hx Gastrointestinal Problems: No History Of Psychiatric Problem: Yes - Schizophrenia, Hx Tremors: Yes Review of Systems All Other Systems: negative except mentioned in HPI Physical Exam Vital Signs Date Time Temp Pulse Resp B/P (MAP) Pulse Ox O2 Delivery O2 Flow Rate FiO2 04/21/18 16:54 56 18 176/80 96 Room Air 04/21/18 17:04 98.0 98.0 Sp02 EP Interpretation: reviewed, normal General Appearance: well appearing, no apparent distress, GCS 15 Head: normocephalic Eyes: bilateral eye normal inspection, bilateral eye PERRL, bilateral eye EOMI ENT: moist mucus membranes Neck: supple Respiratory: chest non-tender, lungs clear, normal breath sounds, expiration - occasional wheezes Cardiovascular #1: regular rate, rhythm, edema - trace bilat Cardiovascular #2: 2+ radial (R) Gastrointestinal: normal inspection, normal bowel sounds, non tender, no mass, non-distended Musculoskeletal: back normal, gait/station normal, normal range of motion Neurologic: alert, oriented x3, motor strength/tone normal, DTRs symmetric, sensory intact, cerebellar normal, normal gait, speech normal Psychiatric: mood/affect normal - though slightly agitated initially Suicide Risk Assessment: Suicidal Ideation: Yes Had intent to initiate attempt: Yes Pt's plan for suicide attempt: Yes Has means to complete attempt: Yes Skin: normal inspection, warm/dry Medical Decision Making Diagnostic Impression: Primary Impression: Hyponatremia Additional Impressions: Hypothyroid Qualified Codes: E03.9 - Hypothyroidism, unspecified Suicidal ideation Elevated lactic acid level Edema Qualified Codes: R60.9 - Edema, unspecified ER Course Patient presents with suicidal ideation and total body pain with edema. Differential includes acute myocardial infarction cardial infarction, exacerbation of depression, electrolyte imbalance, occult infection, congestive heart failure, hypothyroidism amongst others. The patient will be evaluated with EKG, chest x-ray and labs. Patient initially refused evaluation and only agreed after discussion with ERMD. EKG without acute injury. Chest x-ray unremarkable. Labs significant for high TSH suggesting hypothyroidism, negative troponin. Low sodium. (Urine sodium ordered.) Elevated lactic acid. Patient receiving NS. No evidence of infection. Consider edema and low sodium due to medications. Somewhat improved but needs hospital admission with sitter. Admit Med, Dr. Buchanan. Laboratory Tests Test 04/21/18 17:27 04/21/18 18:50 White Blood Count 8.1 K/UL (4.8-10.8) Red Blood Count 3.92 M/UL (4.70-6.10) L Hemoglobin 13.1 G/DL (14.2-18.0) L Hematocrit 37.8 % (42.0-52.0) L Mean Corpuscular Volume 96 FL (80-99) Mean Corpuscular Hemoglobin 33.4 PG (27.0-31.0) H Mean Corpuscular Hemoglobin Concent 34.7 G/DL (32.0-36.0) Red Cell Distribution Width 12.9 % (11.6-14.8) Platelet Count 156 K/UL (150-450) Mean Platelet Volume 7.6 FL (6.5-10.1) Neutrophils (%) (Auto) 57.0 % (45.0-75.0) Lymphocytes (%) (Auto) 25.0 % (20.0-45.0) Monocytes (%) (Auto) 10.8 % (1.0-10.0) H Eosinophils (%) (Auto) 6.1 % (0.0-3.0) H Basophils (%) (Auto) 1.2 % (0.0-2.0) Urine Color [place] Urine Appearance Clear Urine pH 7 (4.5-8.0) Urine Specific [place] 1.005 (1.005-1.035) Urine Protein 1+ (NEGATIVE) H Urine Glucose (UA) 1+ (NEGATIVE) H Urine Ketones Negative (NEGATIVE) Urine Blood Negative (NEGATIVE) Urine Nitrite Negative (NEGATIVE) Urine Bilirubin Negative (NEGATIVE) Urine Ictotest Negative (NEGATIVE) Urine Urobilinogen 4 MG/DL (0.0-1.0) H Urine Leukocyte Esterase Negative (NEGATIVE) Urine RBC 0-2 /HPF (0 - 0) H Urine WBC 0 /HPF (0 - 0) Urine Squamous Epithelial Cells Few /LPF (NONE/OCC) Urine Bacteria Few /HPF (NONE) Urine Random Sodium < 20 mmol/L (20-110) L Sodium Level 127 MMOL/L (136-145) L Potassium Level 3.6 MMOL/L (3.5-5.1) Chloride Level 95 MMOL/L (98-107) L Carbon Dioxide Level 25 MMOL/L (21-32) Anion Gap 7 mmol/L (5-15) Blood Urea Nitrogen 4 mg/dL (7-18) L Creatinine 0.7 MG/DL (0.55-1.30) Estimate Glomerular Filtration Rate > 60 mL/min (>60) Glucose Level 109 MG/DL (74-106) H Lactic Acid Level 2.80 mmol/L (0.4-2.0) H Pending Calcium Level 8.2 MG/DL (8.5-10.1) L Total Bilirubin 0.9 MG/DL (0.2-1.0) Aspartate Amino Transferase (AST) 115 U/L (15-37) H Alanine Aminotransferase (ALT) 89 U/L (12-78) H Alkaline Phosphatase 129 U/L (46-116) H Total Creatine Kinase 151 U/L (26-308) Troponin I 0.036 ng/mL (0.000-0.056) Pro-B-Type Natriuretic Peptide Pending Total Protein 8.0 G/DL (6.4-8.2) Albumin 3.2 G/DL (3.4-5.0) L Globulin 4.8 g/dL Albumin/Globulin Ratio 0.7 (1.0-2.7) L Thyroid Stimulating Hormone (TSH) 5.291 uiU/mL (0.358-3.740) Salicylates Level < 0.2 ug/mL (2.8-20) L Urine Opiates Screen Negative (NEGATIVE) Acetaminophen Level < 2 MCG/ML (10-30) L Urine Barbiturates Screen Negative (NEGATIVE) Phencyclidine (PCP) Screen Negative (NEGATIVE) Urine Amphetamines Screen Negative (NEGATIVE) Urine Benzodiazepines Screen Positive (NEGATIVE) H Urine Cocaine Screen Negative (NEGATIVE) Urine Marijuana (THC) Screen Negative (NEGATIVE) Serum Alcohol < 3 mg/dL EKG Diagnostic Results Rate: normal Rhythm: NSR ST Segments: no acute changes Rhythm Strip Diag. Results EP Interpretation: yes Rhythm: NSR, no PVC's, no ectopy Chest X-Ray Diagnostic Results Chest X-Ray Diagnostic Results : Chest X-Ray Ordered: Yes # of Views/Limited/Complete: 1 View Indication: Other Interpretation: no consolidation, no effusion, no pneumothorax Impression: No acute disease Electronically Signed by: Electronically signed by Naldo Sanchez MD Last Vital Signs Date Time Temp Pulse Resp B/P (MAP) Pulse Ox O2 Delivery O2 Flow Rate FiO2 04/22/18 00:00 98.1 57 19 157/67 (97) 98.1 04/21/18 21:05 Room Air 04/21/18 20:50 99 Status: improved Disposition: ADMITTED INPATIENT Condition: Serious Referrals: Elia Buchanan MD (PCP) Naldo Sanchez M.D. Apr 21, 2018 17:53
[2018-04-21 18:09] LABS: ANION GAP 7 mmol/L (5-15); BLOOD UREA NITROGEN 4 mg/dL (7-18); CALCIUM 8.2 MG/DL (8.5-10.1); CARBON DIOXIDE 25 MMOL/L (21-32); CHLORIDE 95 MMOL/L (98-107); CREATININE 0.7 MG/DL (0.55-1.30); POTASSIUM 3.6 MMOL/L (3.5-5.1); SODIUM 127 MMOL/L (136-145)
--- NOTE | 2018-04-21 18:18 | Diagnostic Imaging Report ---
EXAM: XR Chest, 1 View CLINICAL HISTORY: Loss of consciousness TECHNIQUE: Frontal view of the chest. COMPARISON: 12/23/2017 FINDINGS: Lungs: Unremarkable. No consolidation. Pleural space: Unremarkable. No pneumothorax. Heart: Stable cardiomediastinal silhouette. Mediastinum: See above. Bones/joints: No acute osseous abnormality. IMPRESSION: No acute cardiopulmonary process.
[2018-04-21 18:21] LABS: ALANINE AMINOTRANSFERASE 89 U/L (12-78); ALBUMIN 3.2 G/DL (3.4-5.0); ALBUMIN/GLOBULIN RATIO 0.7 (1.0-2.7); ALKALINE PHOSPHATASE 129 U/L (46-116); ASPARTATE AMINO TRANSFERASE 115 U/L (15-37); BILIRUBIN,TOTAL 0.9 MG/DL (0.2-1.0); CREATINE KINASE 151 U/L (26-308)
[2018-04-21 19:06] VITALS: BP 147/112
[2018-04-21] MEDS ORDERED: QUETIAPINE FUM100 MG ORAL (20:05)
[2018-04-21] MEDS ORDERED: QUETIAPINE FUMA50 MG ORAL (20:05)
[2018-04-21] MEDS ORDERED: KLONOPIN1 MG ORAL (20:05)
[2018-04-21] MEDS ORDERED: SEROQUEL200 MG ORAL (20:05)
[2018-04-21 20:15] VITALS: BP 155/63
[2018-04-21 20:50] VITALS: BP 168/77
[2018-04-21] MEDS: Lisinopril 20mg tab ORAL SCH (22:30)
[2018-04-21] MEDS ORDERED: Sucralfate 1gm tab ORAL SCH (22:30)
[2018-04-21] MEDS: QUEtiapine 200mg tab ORAL SCH (22:30)
[2018-04-21] MEDS: Sucralfate 1gm tab ORAL SCH (23:00)
[2018-04-22] VITALS: BP 157/67
[2018-04-22 04:00] VITALS: BP 150/68
[2018-04-22] MEDS: Sucralfate 1gm tab ORAL SCH ×2 (06:33→17:13)
[2018-04-22 08:00] VITALS: BP 153/73
[2018-04-22] MEDS: Lisinopril 20mg tab ORAL SCH ×2 (08:38→17:52)
[2018-04-22 11:01] LABS: BASOPHILS % (AUTO) 0.7 % (0.0-2.0); EOSINOPHILS % (AUTO) 8.2 % (0.0-3.0); HEMATOCRIT 34.5 % (42.0-52.0); HEMOGLOBIN 12.3 G/DL (14.2-18.0); LYMPHOCYTES % (AUTO) 25.4 % (20.0-45.0); MEAN CORPUSCULAR VOLUME 94 FL (80-99); MONOCYTES % (AUTO) 11.5 % (1.0-10.0); NEUTROPHILS % (AUTO) 54.2 % (45.0-75.0); PLATELET COUNT 124 K/UL (150-450); RED BLOOD COUNT 3.67 M/UL (4.70-6.10); RED CELL DISTRIBUTION WIDTH 12.7 % (11.6-14.8); WHITE BLOOD COUNT 4.8 K/UL (4.8-10.8)
[2018-04-22 11:57] VITALS: BP 116/53
[2018-04-22 12:41] LABS: ALANINE AMINOTRANSFERASE 85 U/L (12-78); ALBUMIN 2.7 G/DL (3.4-5.0); ALBUMIN/GLOBULIN RATIO 0.7 (1.0-2.7); ALKALINE PHOSPHATASE 115 U/L (46-116); ANION GAP 8 mmol/L (5-15); ASPARTATE AMINO TRANSFERASE 100 U/L (15-37); BILIRUBIN,TOTAL 0.7 MG/DL (0.2-1.0); BLOOD UREA NITROGEN 6 mg/dL (7-18); CALCIUM 7.9 MG/DL (8.5-10.1); CARBON DIOXIDE 26 MMOL/L (21-32); CHLORIDE 103 MMOL/L (98-107); CREATININE 0.8 MG/DL (0.55-1.30); POTASSIUM 3.7 MMOL/L (3.5-5.1); SODIUM 137 MMOL/L (136-145)
--- NOTE | 2018-04-22 13:25 | Consultation ---
Consult Note Consult Note asked to eval for Low Na Patient presents via private ambulance with complaint of wanting to kill himself. He told EMS he would jump in front of traffic. He states he's very depressed at the place where he is living at this time and refuses to go back. He has pain all throughout his body. Also has swelling in his legs. He states he has a headache. Pain reported 10/10 throughout body. Aching. Denies fever, chills, NVD, cough, dyspnea, rashes. H/O diabetes. H/O osteoarthritis. H/O pneumonia and COPD though denies smoking. Allergies: HAY FEVER (Allergy, Intermediate, 12/24/17) Past Medical History: No History, Except For Hx Diabetes: Yes History Of Psychiatric Problem: Yes - Schizophrenia, Hx Tremors: Yes interviewed examined data reviewed Assessment/Plan HypoNatremia corrected- depletional Anemia HypoAlbuminemia elevated LFTs HypoThyroid saline IV check TSH BP and BS control John Arrington MD Apr 22, 2018 13:25
[2018-04-22 16:00] VITALS: BP 119/62
[2018-04-22 20:00] VITALS: BP 144/70
[2018-04-22] MEDS: QUEtiapine 200mg tab ORAL SCH (20:41)
[2018-04-23] VITALS: BP_SYST 144; BP_SYST 159; BP_DIAS 61; BP_DIAS 77
--- NOTE | 2018-04-23 06:15 | History and Physical Report ---
DATE OF ADMISSION: 04/21/2018 "NOTE: POOR AUDIO QUALITY" HISTORY OF PRESENT ILLNESS: The patient is admitted for and hyponatremia. The patient is also psychiatric patient with bipolar, suicidal ideation, and depression. The patient denies nausea, vomiting, or diarrhea, and very noncompliant. The patient denies fever or chills. No abdominal pain. There evidence of cough. He is agitated. He is admitted for hyponatremia as well. PAST MEDICAL HISTORY: Bipolar, schizoaffective, hypertension, chronic , and GERD. PAST SURGICAL HISTORY: Denies. ALLERGIES: Hay fever. MEDICATIONS: Lisinopril, Protonix, Seroquel, and Carafate. SOCIAL HISTORY: Denies history of smoking. Does have history of alcohol abuse in the past. Comes from assisted living. REVIEW OF SYSTEMS: HEENT: Denies headaches. RESPIRATORY: Denies shortness of breath. Denies cough. . PHYSICAL EXAMINATION: VITAL SIGNS: Temperature is 97.2 degrees, basically pulse is 52, and blood pressure 116/53. HEENT: PERRLA. NECK: Supple. No lymphadenopathy. CHEST: Chest clear to auscultation. GASTROINTESTINAL: Soft, nontender, and nondistended. No organomegaly. EXTREMITIES: No edema. Moves all four extremities. Sensory intact to light touch. Reflexes on both sides. LABORATORY AND DIAGNOSTIC DATA: WBC of 8, hemoglobin of 13, and platelets 156,000. Sodium 137, potassium 3.7, and glucose of 126. Original sodium was low per the ER doctor. The patient also has bradycardia. ASSESSMENT AND PLAN: 1. Psychiatric patient. 2. Bipolar. 3. Hyponatremia. 4. Agitated. I have asked Dr. Gutierres, Dr. Arrington, and Dr. Adamson see the patient for the treatment of the above-mentioned diagnosis as well as for treatment. Elia Buchanan M.D. DR: LYNNE JOB#: [id number] CC:
[2018-04-23 07:54] VITALS: BP 172/68
[2018-04-23] MEDS: Lisinopril 20mg tab ORAL SCH ×2 (08:57→18:00)
[2018-04-23] MEDS: Sucralfate 1gm tab ORAL SCH ×2 (08:57→15:52)
[2018-04-23] MEDS ORDERED: LORazepam Inj 2mg/ml 1ml IM PRN (12:15)
--- NOTE | 2018-04-23 13:22 | Consultation ---
History of Present Illness General Date patient seen: Apr 22, 2018 Chief Complaint: Behavioral Complaint Present Illness HPI 68 yo male with hx of depression who was admitted for dts, the pt stated in the er that he wanted to hurt self. the pt has been having episodes of agitation. He was assigned a sitter. During my evaluation he didn't endorse suicidal thoughts and stated that he was trying to remain calm. the pt is not endorsing psychotic sxs. he was somewhat imitable Allergies: Uncoded Allergies: HAY FEVER (Allergy, Intermediate, 12/24/17) Medication History Scheduled Clonazepam* (Klonopin*), 1 MG ORAL THREE TIMES A DAY, (Reported) Lisinopril (Lisinopril*), 20 MG ORAL BID, (Reported) Pantoprazole* (Pantoprazole*), 40 MG ORAL DAILY, (Reported) Quetiapine Fumarate* (Seroquel*), 200 MG ORAL BEDTIME, (Reported) Quetiapine Fumarate* (Seroquel*), 150 MG ORAL TWICE A DAY, (Reported) Sodium Chloride* (Sodium Chloride*), 1.5 GM PO DAILY, (Reported) Sucralfate* (Carafate*), 1 GM ORAL BID, (Reported) Discontinued Medications Amlodipine Besylate* (Amlodipine Besylate*), 5 MG ORAL DAILY, (Reported) Discontinued Reason: Pt stopped taking med Benztropine Mesylate* (Cogentin*), 0.5 MG PO BID, (Reported) Discontinued Reason: Pt stopped taking med Bisacodyl* (Dulcolax*), 5 MG ORAL DAILY, (Reported) Discontinued Reason: Pt stopped taking med Ciclopirox (Ciclopirox), 45 GM TP BID, (Reported) Discontinued Reason: Pt stopped taking med Diazepam* (Diazepam*), 5 MG ORAL TID, (Reported) Discontinued Reason: Pt stopped taking med Docusate Sodium (Docusate Sodium), 200 MG ORAL DAILY, (Reported) Discontinued Reason: Pt stopped taking med Docusate Sodium (Docusate Sodium), 100 MG ORAL HS, (Reported) Discontinued Reason: Pt stopped taking med Halobetasol Propionate (Halobetasol Propionate), 15 GM TP DAILY, (Reported) Discontinued Reason: Pt stopped taking med Ibuprofen* (Motrin*), 600 MG ORAL Q6H PRN for For Pain, (Reported) Discontinued Reason: Pt stopped taking med Insulin Glargine (Lantus), 12 UNITS SUBQ BEDTIME, (Reported) Discontinued Reason: Pt stopped taking med Levothyroxine Sodium (Synthroid), 50 MCG ORAL DAILY, (Reported) Discontinued Reason: Pt stopped taking med Linaclotide (Linzess), 290 MCG PO DAILY, (Reported) Discontinued Reason: Pt stopped taking med [place] Carbonate* ([place]*), 300 MG ORAL EVERY 12 HOURS, (Reported) Discontinued Reason: Pt stopped taking med Magnesium Hydroxide* (Milk Of Magnesia*), 30 ML ORAL Q4HR PRN for Constipation, (Reported) Discontinued Reason: Pt stopped taking med Megestrol Acetate (Megestrol Acetate), 40 MG PO DAILY PRN for Appetite, ( Reported) Discontinued Reason: Pt stopped taking med Multivitamin with Minerals (Multivitamins with Minerals), 1 TAB ORAL DAILY, ( Reported) Discontinued Reason: Pt stopped taking med Quetiapine Fumarate* (Quetiapine Fumarate*), 50 MG ORAL BID, (Reported) Discontinued Reason: Medication dose changed Risperidone (Risperidone M-Tab), 3 MG PO BID, (Reported) Discontinued Reason: Pt stopped taking med Sennosides (Senna), 8.6 MG PO DAILY, (Reported) Discontinued Reason: Pt stopped taking med Tamsulosin Hcl (Tamsulosin Hcl*), 0.4 MG ORAL DAILY, (Reported) Discontinued Reason: Pt stopped taking med Temazepam* (Temazepam*), 30 MG ORAL BEDTIME, (Reported) Discontinued Reason: Pt stopped taking med Patient History Healthcare decision maker Resuscitation status Full Code Advanced Directive on File No Physical Exam Last 24 Hour Vital Signs Date Time Temp Pulse Resp B/P (MAP) Pulse Ox O2 Delivery O2 Flow Rate FiO2 04/23/18 08:57 172/68 04/23/18 08:00 Room Air 04/23/18 07:54 98.6 17 172/68 (102) 76 98.6 04/23/18 00:00 97.3 61 17 159/77 (104) 99 97.3 04/22/18 21:00 Room Air 04/22/18 20:00 97.0 60 16 144/70 (94) 96 97.0 04/22/18 17:52 119/62 04/22/18 16:00 97.5 55 18 119/62 (81) 96 97.5 Intake and Output 04/22/18 04/23/18 19:00 07:00 Intake Total 600 ml Output Total 400 ml Balance 200 ml Intake Oral 600 ml Output Urine Total 400 ml # Voids 2 6 # Bowel Movements 3 Height (Feet): 5 Height (Inches): 8.00 Weight (Pounds): 180 Medications Current Medications Medications (Trade) Dose Ordered Sig/Kathleen Route PRN Reason Start Time Stop Time Status Last Admin Dose Admin Acetaminophen (Tylenol) 650 mg Q4H PRN ORAL Mild Pain/Temp > 100.5 04/22/18 09:45 05/22/18 09:44 Clonazepam (KlonoPIN) 1 mg THREE TIMES A DAY ORAL 04/21/18 22:30 04/28/18 22:29 04/23/18 12:41 Haloperidol Lactate (Haldol) 5 mg Q6H PRN IM Agitation 04/23/18 12:15 05/23/18 12:14 Lisinopril (Prinivil) 20 mg BID ORAL 04/21/18 22:30 05/21/18 22:29 04/23/18 08:57 Lorazepam (Ativan 2mg/ml 1ml) 1 mg Q4H PRN IM For Anxiety 04/23/18 12:15 04/30/18 12:14 Pantoprazole (Protonix) 40 mg DAILY ORAL 04/22/18 09:00 05/22/18 08:59 04/23/18 08:57 Quetiapine Fumarate (SEROquel) 50 mg BID ORAL 04/22/18 09:00 05/22/18 08:59 04/23/18 08:56 Quetiapine Fumarate (SEROquel) 100 mg TWICE A DAY ORAL 04/22/18 09:00 05/22/18 08:59 04/23/18 08:56 Quetiapine Fumarate (SEROquel) 200 mg BEDTIME ORAL 04/21/18 22:30 05/21/18 22:29 04/22/18 20:41 Sucralfate (Carafate) 1 gm BID@0730,1630 ORAL 04/21/18 23:00 05/21/18 22:29 04/23/18 08:57 Assessment/Plan Assessment/Plan schizoaffective d/o bipolar type dc seroquel start depakote start risperdal dc the sitter the pt is not at imminent dts/dto Geri Gutierres MD Apr 23, 2018 13:22
[2018-04-23] MEDS: Depakote 500mg tab ORAL SCH ×2 (14:35→21:00)
--- NOTE | 2018-04-23 14:45 | Cardiac Electrophysiology PN ---
Subjective Subjective [id number] Objective Last 24 Hour Vital Signs Date Time Temp Pulse Resp B/P (MAP) Pulse Ox O2 Delivery O2 Flow Rate FiO2 04/23/18 08:57 172/68 04/23/18 08:00 Room Air 04/23/18 07:54 98.6 17 172/68 (102) 76 98.6 04/23/18 00:00 97.3 61 17 159/77 (104) 99 97.3 04/22/18 21:00 Room Air 04/22/18 20:00 97.0 60 16 144/70 (94) 96 97.0 04/22/18 17:52 119/62 04/22/18 16:00 97.5 55 18 119/62 (81) 96 97.5 Intake and Output 04/22/18 04/23/18 19:00 07:00 Intake Total 600 ml Output Total 400 ml Balance 200 ml Intake Oral 600 ml Output Urine Total 400 ml # Voids 2 6 # Bowel Movements 3 Microbiology Date/Time Source Procedure Growth Status 04/21/18 22:00 Rectum Received Otto Washburn MD Apr 23, 2018 14:45
--- NOTE | 2018-04-23 14:46 | Cardiology Report ---
APPROVED REPORT EKG Measurement Heart [id number] [id number] Normal sinus rhythm with sinus arrhythmia Anteroseptal infarct, age undetermined Abnormal ECG
[2018-04-23] MEDS: Haloperidol 5mg/ml Inj IM PRN (15:38)
[2018-04-23 16:00] VITALS: BP 161/85
--- NOTE | 2018-04-23 16:28 | Nephrology Progress Note ---
Assessment/Plan Problem List: (1) Hypothyroid (2) Hyponatremia (3) Hypoalbuminemia Assessment HypoNatremia corrected- depletional Anemia HypoAlbuminemia elevated LFTs HypoThyroid Plan saline IV check TSH BP and BS control Subjective ROS Limited/Unobtainable: No Objective Objective Last 24 Hour Vital Signs Date Time Temp Pulse Resp B/P (MAP) Pulse Ox O2 Delivery O2 Flow Rate FiO2 04/23/18 16:00 97.4 88 18 161/85 (110) 94 97.4 04/23/18 15:52 61 172/68 04/23/18 08:57 172/68 04/23/18 08:00 Room Air 04/23/18 07:54 98.6 17 172/68 (102) 76 98.6 04/23/18 00:00 97.3 61 17 159/77 (104) 99 97.3 04/22/18 21:00 Room Air 04/22/18 20:00 97.0 60 16 144/70 (94) 96 97.0 04/22/18 17:52 119/62 Intake and Output 04/22/18 04/23/18 19:00 07:00 Intake Total 600 ml Output Total 400 ml Balance 200 ml Intake Oral 600 ml Output Urine Total 400 ml # Voids 2 6 # Bowel Movements 3 Height (Feet): 5 Height (Inches): 8.00 Weight (Pounds): 180 General Appearance: no apparent distress Cardiovascular: normal rate Respiratory/Chest: lungs clear Abdomen: soft Objective no change John Arrington MD Apr 23, 2018 16:28
[2018-04-23 20:00] VITALS: BP 161/71
[2018-04-23] MEDS: QUEtiapine 200mg tab ORAL SCH (21:00)
--- NOTE | 2018-04-23 22:03 | General Progress Note ---
Assessment/Plan Problem List: (1) Hyponatremia ICD Codes: E87.1 - Hypo-osmolality and hyponatremia SNOMED: 82302637 (2) Suicidal ideation ICD Codes: R45.851 - Suicidal ideations SNOMED: 8069972 (3) Hypothyroid ICD Codes: E03.9 - Hypothyroidism, unspecified SNOMED: 65414937 Qualifiers: Qualified Codes: E03.9 - Hypothyroidism, unspecified Status: progressing Assessment/Plan hyponatremia improving afebrile vitals stable no acute evetns major psych patient Subjective ROS Limited/Unobtainable: Yes Allergies: Uncoded Allergies: HAY FEVER (Allergy, Intermediate, 12/24/17) Objective Last 24 Hour Vital Signs Date Time Temp Pulse Resp B/P (MAP) Pulse Ox O2 Delivery O2 Flow Rate FiO2 04/23/18 20:00 97.9 86 19 161/71 (101) 100 97.9 04/23/18 16:00 97.4 88 18 161/85 (110) 94 97.4 04/23/18 15:52 61 172/68 04/23/18 08:57 172/68 04/23/18 08:00 Room Air 04/23/18 07:54 98.6 17 172/68 (102) 76 98.6 04/23/18 00:00 97.3 61 17 159/77 (104) 99 97.3 Intake and Output 04/22/18 04/23/18 19:00 07:00 Intake Total 600 ml Output Total 400 ml Balance 200 ml Intake Oral 600 ml Output Urine Total 400 ml # Voids 2 6 # Bowel Movements 3 Height (Feet): 5 Height (Inches): 8.00 Weight (Pounds): 180 Cardiovascular: normal rate Respiratory/Chest: lungs clear Abdomen: soft Elia Buchanan MD Apr 23, 2018 22:03
--- NOTE | 2018-04-23 22:46 | General Progress Note ---
Assessment/Plan Assessment/Plan schizoaffective d/o bipolar type start depakote start risperdal dc the sitter the pt is not at imminent dts/dto Subjective Date patient seen: Apr 23, 2018 Neurologic/Psychiatric: Reports: anxiety, depressed, emotional problems Allergies: Uncoded Allergies: HAY FEVER (Allergy, Intermediate, 12/24/17) Subjective the pt is volatile at times but no si Objective Last 24 Hour Vital Signs Date Time Temp Pulse Resp B/P (MAP) Pulse Ox O2 Delivery O2 Flow Rate FiO2 04/23/18 20:00 97.9 86 19 161/71 (101) 100 97.9 04/23/18 16:00 97.4 88 18 161/85 (110) 94 97.4 04/23/18 15:52 61 172/68 04/23/18 08:57 172/68 04/23/18 08:00 Room Air 04/23/18 07:54 98.6 17 172/68 (102) 76 98.6 04/23/18 00:00 97.3 61 17 159/77 (104) 99 97.3 Intake and Output 04/22/18 04/23/18 19:00 07:00 Intake Total 600 ml Output Total 400 ml Balance 200 ml Intake Oral 600 ml Output Urine Total 400 ml # Voids 2 6 # Bowel Movements 3 Height (Feet): 5 Height (Inches): 8.00 Weight (Pounds): 180 General Appearance: no apparent distress, alert Neurologic: oriented x 3, responsive, depressed affect Geri Gutierres MD Apr 23, 2018 22:46
[2018-04-23] MEDS ORDERED: cloNIDine 0.2mg Tab ORAL PRN (23:00)
[2018-04-24] VITALS: BP 161/74
[2018-04-24] MEDS: Haloperidol 5mg/ml Inj IM PRN (01:01)
--- NOTE | 2018-04-24 02:15 | Consultation ---
DATE OF CONSULTATION: 04/23/2018 CONSULTING PHYSICIAN: Otto Washburn M.D. REFERRING PHYSICIAN: Darren Hunt D.O. REASON FOR CONSULTATION: Accelerated hypertension. HISTORY OF PRESENT ILLNESS: The patient is a 68-year-old gentleman with history of hypertension and bipolar disorder, who was brought to the emergency room for weakness. The patient was agitated and was found to be hyponatremic. Cardiology consultation was obtained for further evaluation of his hypertension. REVIEW OF SYSTEMS: Review of systems was negative other than what was mentioned in the history of present illness. PAST MEDICAL HISTORY: As mentioned above. FAMILY HISTORY: Noncontributory. SOCIAL HISTORY: Does not smoke or drink alcohol. He comes from assisted living. ALLERGIES: He has no known drug allergies. MEDICATIONS: Per reconciliation. PHYSICAL EXAMINATION: VITAL SIGNS: Blood pressure is 172/68, pulse 68, respirations 18, and he is afebrile. HEAD AND NECK: Showed no JVD. LUNGS: Clear. CARDIOVASCULAR: Shows regular S1 and S2 with no gallop or murmur. ABDOMEN: Soft. EXTREMITIES: No pitting edema. LABORATORY DATA: White count 4.8, hemoglobin 12.2, hematocrit 34.5, and platelet count 124,000. Sodium is 137, potassium 3.7, BUN 6, and creatinine 0.8. Troponin is negative. ASSESSMENT AND PLAN: 1. Accelerated hypertension. Blood pressure is 172/68. The patient is on lisinopril 20 mg b.i.d. I will add Norvasc 5 mg daily to his medical regimen and add p.r.n. clonidine. We will get an echocardiogram for further evaluation and management. 2. Bipolar disorder, on Risperdal and Haldol. We will get an EKG prolonged QT. 3. Homelessness. Thank you very much, Dr. Buchanan, for allowing me to participate in the care of this patient. Please do not hesitate to contact me for any questions regarding my evaluation. Otto Washburn M.D. DR: EUNICE JOB#: [id number] CC:
[2018-04-24 04:00] VITALS: BP 125/48
[2018-04-24] MEDS: Sucralfate 1gm tab ORAL SCH ×2 (06:26→16:35)
[2018-04-24 08:00] VITALS: BP 143/53
--- NOTE | 2018-04-24 08:20 | Consultation ---
Consult Note Consult Note Hematology Consult RFC: Thrombocytopenia DOS: 04/24/2018 HENRIQUE FELDMAN: Chanel ID: Patient presents via private ambulance with complaint of wanting to kill himself. He told EMS he would jump in front of traffic. He states he's very depressed at the place where he is living at this time and refuses to go back. He has pain all throughout his body. Also has swelling in his legs. He states he has a headache. Pain reported 10/10 throughout body. Aching. Denies fever, chills, NVD, cough, dyspnea, rashes. Noted to have low ptls and heme consulted PMHx: H/O diabetes. H/O osteoarthritis. H/O pneumonia and COPD though denies smoking. Allergies: HAY FEVER (Allergy, Intermediate, 12/24/17) Past Medical History: see triage record Social History: Denies: smoking Social History Narrative from [place] Reviewed Nursing Documentation: PMH: Agreed; PSxH: Agreed Past Medical History: No History, Except For Hx Diabetes: Yes Hx Cancer: No Hx Gastrointestinal Problems: No History Of Psychiatric Problem: Yes - Schizophrenia, Hx Tremors: Yes ER ROS - General Review of Systems All Other Systems: negative except mentioned in HPI, 12 point ROS negative PE Last 24 Hour Vital Signs Date Time Temp Pulse Resp B/P (MAP) Pulse Ox O2 Delivery O2 Flow Rate FiO2 04/24/18 04:00 97.7 60 16 125/48 (73) 94 97.7 04/24/18 00:00 99.0 92 20 161/74 (103) 96 99.0 04/23/18 21:00 Room Air 04/23/18 20:00 97.9 86 19 161/71 (101) 100 97.9 04/23/18 16:00 97.4 88 18 161/85 (110) 94 97.4 04/23/18 15:52 61 172/68 04/23/18 08:57 172/68 Sp02 EP Interpretation: reviewed General Appearance: well appearing, no apparent distress Head: normocephalic Eyes: bilateral eye normal inspection, bilateral eye PERRL ENT: moist mucus membranes Neck: supple Respiratory: chest non-tender, lungs clear - occasional wheezes CV: regular rate, rhythm, edema Gastrointestinal: normal inspection Musculoskeletal: back normal, gait/station normal, Neurologic: alert, oriented x3, motor strength/tone normal, DTRs symmetric Psychiatric: mood/affect Skin: normal inspection, warm/dry Labs: wbc 4, hgb 12, plt 123k Assessment and Recs: # Thrombocytopenia with a history of potential liver disease, noted in the past to have a history of hepatitis C, with a positive RNA, elevated --> obtain peripheral smear --> medications reviewed, antipsych meds can also cause this as well and currently have been started --> obtain new RNA to see if worse # Anemia of chronic disease --> anemia of chronic disease has been reviewed # Hyponatremia now on NS --> Consider edema and low sodium due to medications. # Hypothyroidism # Suicidal ideation # Elevated lactic acid level # Edema Greatly appreciate consultation! Silviano Arteaga MD Apr 24, 2018 08:20
[2018-04-24] MEDS: Lisinopril 20mg tab ORAL SCH ×2 (09:00→16:41)
[2018-04-24] MEDS: Depakote 500mg tab ORAL SCH ×2 (09:00→21:07)
--- NOTE | 2018-04-24 13:20 | Nephrology Progress Note ---
Assessment/Plan Problem List: (1) Hypothyroid (2) Hyponatremia (3) Hypoalbuminemia Assessment HypoNatremia corrected- depletional Anemia HypoAlbuminemia elevated LFTs HypoThyroid Plan DC saline IV check TSH BP and BS control Subjective ROS Limited/Unobtainable: No Objective Objective Last 24 Hour Vital Signs Date Time Temp Pulse Resp B/P (MAP) Pulse Ox O2 Delivery O2 Flow Rate FiO2 04/24/18 09:00 57 143/53 04/24/18 09:00 143/53 04/24/18 09:00 Room Air 04/24/18 08:00 97.3 57 20 143/53 (83) 95 97.3 04/24/18 04:00 97.7 60 16 125/48 (73) 94 97.7 04/24/18 00:00 99.0 92 20 161/74 (103) 96 99.0 04/23/18 21:00 Room Air 04/23/18 20:00 97.9 86 19 161/71 (101) 100 97.9 04/23/18 16:00 97.4 88 18 161/85 (110) 94 97.4 04/23/18 15:52 61 172/68 Intake and Output 04/23/18 04/24/18 19:00 07:00 Intake Total 560 ml Balance 560 ml Other 560 ml # Voids 4 2 Laboratory Tests 04/24/18 11:10: Hepatitis C Antibody [Pending], Hepatitis C RNA (PCR) IUs/ml [Pending], Hepatitis C RNA (PCR) log IUs/ml [Pending] Height (Feet): 5 Height (Inches): 8.00 Weight (Pounds): 180 General Appearance: no apparent distress Objective no change John Arrington MD Apr 24, 2018 13:20
[2018-04-24] MEDS ORDERED: cloNIDine 0.2mg Tab ORAL PRN (13:30)
[2018-04-24 16:00] VITALS: BP 143/93
--- NOTE | 2018-04-24 16:04 | Cardiac Electrophysiology PN ---
Assessment/Plan Assessment/Plan 1. Accelerated hypertension. On lisinopril 20 mg bid and Norvasc 5 mg daily and p.r.n. clonidine. Echocardiogram pending. 2. Bipolar disorder, on Risperdal and Haldol. 3. Homelessness. Subjective Subjective Comfortable in NAD. Wants to go to [place] Objective Last 24 Hour Vital Signs Date Time Temp Pulse Resp B/P (MAP) Pulse Ox O2 Delivery O2 Flow Rate FiO2 04/24/18 09:00 57 143/53 04/24/18 09:00 143/53 04/24/18 09:00 Room Air 04/24/18 08:00 97.3 57 20 143/53 (83) 95 97.3 04/24/18 04:00 97.7 60 16 125/48 (73) 94 97.7 04/24/18 00:00 99.0 92 20 161/74 (103) 96 99.0 04/23/18 21:00 Room Air 04/23/18 20:00 97.9 86 19 161/71 (101) 100 97.9 Intake and Output 04/23/18 04/24/18 19:00 07:00 Intake Total 560 ml Balance 560 ml Other 560 ml # Voids 4 2 Laboratory Tests Test 04/24/18 11:10 Hepatitis C Antibody Pending Hepatitis C RNA (PCR) IUs/ml Pending Hepatitis C RNA (PCR) log IUs/ml Pending Microbiology Date/Time Source Procedure Growth Status 04/21/18 22:00 Nasal Nares Right MRSA Culture - Final NO METHICILLIN RESISTANT STAPH AUREUS... Complete 04/21/18 22:00 Rectum VRE Culture - Final NO VANCOMYCIN RESISTANT ENTEROCOCCUS ... Complete 04/21/18 22:00 Rectum - Final NO CARBAPENEM-RESISTANT ENTEROBACTERI... Complete Objective HEAD AND NECK: Showed no JVD. LUNGS: Clear. CARDIOVASCULAR: Shows regular S1 and S2 with no gallop or murmur. ABDOMEN: Soft. EXTREMITIES: 1 plus pitting edema. Otto Washburn MD Apr 24, 2018 16:04
--- NOTE | 2018-04-24 16:13 | Diagnostic Imaging Report ---
Indication: Elevated liver function tests Technique: Grayscale and duplex Doppler imaging of the abdomen performed. Comparison: None Findings: Definite nodularity liver surface not demonstrated. There are measures 17 cm. Gallbladder wall is prominent. Pancreas is unremarkable. Portal vein is patent. No biliary ductal dilatation identified. Spleen is normal size. No ascites seen. CBD is 4 mm. No hydronephrosis seen. Nonshadowing echogenic mass in the left kidney measuring 1 cm demonstrated. This is either focal fat within a papilla or possibly an angiomyolipoma. Aorta is normal in caliber. IMPRESSION: No definite evidence of chronic liver disease. Mild gallbladder wall thickening nonspecific. 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
--- NOTE | 2018-04-24 18:27 | General Progress Note ---
Assessment/Plan Status: stable Assessment/Plan schizoaffective d/o bipolar type start Depakote start Risperdal dc the sitter the pt is not at imminent dts/dto Haldol dec they pt is not meeting Subjective Date patient seen: Apr 24, 2018 Neurologic/Psychiatric: Reports: anxiety, depressed, emotional problems Allergies: Uncoded Allergies: HAY FEVER (Allergy, Intermediate, 12/24/17) Subjective the pt refused labs and meds. uncooperative will give haldol dec Objective Last 24 Hour Vital Signs Date Time Temp Pulse Resp B/P (MAP) Pulse Ox O2 Delivery O2 Flow Rate FiO2 04/24/18 16:41 143/93 04/24/18 16:00 97.2 74 20 143/93 (110) 97 97.2 04/24/18 09:00 57 143/53 04/24/18 09:00 143/53 04/24/18 09:00 Room Air 04/24/18 08:00 97.3 57 20 143/53 (83) 95 97.3 04/24/18 04:00 97.7 60 16 125/48 (73) 94 97.7 04/24/18 00:00 99.0 92 20 161/74 (103) 96 99.0 04/23/18 21:00 Room Air 04/23/18 20:00 97.9 86 19 161/71 (101) 100 97.9 Intake and Output 04/23/18 04/24/18 19:00 07:00 Intake Total 560 ml Balance 560 ml Other 560 ml # Voids 4 2 Laboratory Tests 04/24/18 11:10: Hepatitis C Antibody [Pending], Hepatitis C RNA (PCR) IUs/ml [Pending], Hepatitis C RNA (PCR) log IUs/ml [Pending] Height (Feet): 5 Height (Inches): 8.00 Weight (Pounds): 180 General Appearance: no apparent distress, alert Neurologic: oriented x 3, responsive, depressed affect Geri Gutierres MD Apr 24, 2018 18:27
[2018-04-24] MEDS ORDERED: Haloperidol Decanoate 50mg Inj IM SCH ×2 (19:00→21:15)
[2018-04-24 20:00] VITALS: BP 150/60
--- NOTE | 2018-04-24 21:03 | General Progress Note ---
Assessment/Plan Problem List: (1) Hyponatremia ICD Codes: E87.1 - Hypo-osmolality and hyponatremia SNOMED: 13230244 (2) Suicidal ideation ICD Codes: R45.851 - Suicidal ideations SNOMED: 9755366 (3) Hypothyroid ICD Codes: E03.9 - Hypothyroidism, unspecified SNOMED: 45140537 Qualifiers: Qualified Codes: E03.9 - Hypothyroidism, unspecified Status: progressing Assessment/Plan hyponatremia psychiatric pt agitated refusing care hypothroid SI Subjective ROS Limited/Unobtainable: Yes Allergies: Uncoded Allergies: HAY FEVER (Allergy, Intermediate, 12/24/17) Objective Last 24 Hour Vital Signs Date Time Temp Pulse Resp B/P (MAP) Pulse Ox O2 Delivery O2 Flow Rate FiO2 04/24/18 16:41 143/93 04/24/18 16:00 97.2 74 20 143/93 (110) 97 97.2 04/24/18 09:00 57 143/53 04/24/18 09:00 143/53 04/24/18 09:00 Room Air 04/24/18 08:00 97.3 57 20 143/53 (83) 95 97.3 04/24/18 04:00 97.7 60 16 125/48 (73) 94 97.7 04/24/18 00:00 99.0 92 20 161/74 (103) 96 99.0 Intake and Output 04/23/18 04/24/18 19:00 07:00 Intake Total 560 ml Balance 560 ml Other 560 ml # Voids 4 2 Laboratory Tests 04/24/18 11:10: Hepatitis C Antibody [Pending], Hepatitis C RNA (PCR) IUs/ml [Pending], Hepatitis C RNA (PCR) log IUs/ml [Pending] Height (Feet): 5 Height (Inches): 8.00 Weight (Pounds): 180 Neck: supple Cardiovascular: normal rate Respiratory/Chest: lungs clear Elia Buchanan MD Apr 24, 2018 21:03
[2018-04-24] MEDS: QUEtiapine 200mg tab ORAL SCH (21:07)
[2018-04-25] VITALS: BP_SYST 135; BP_SYST 173; BP_DIAS 63; BP_DIAS 78
[2018-04-25 04:00] VITALS: BP 135/58
--- NOTE | 2018-04-25 06:55 | General Progress Note ---
Assessment/Plan Assessment/Plan Assessment and Recs: # Thrombocytopenia with a history of potential liver disease, noted in the past to have a history of hepatitis C, with a positive RNA, elevated --> obtain peripheral smear, have ordered, though patient has refused several lab draws --> medications reviewed, antipsych meds can also cause this as well and currently have been started --> obtain new RNA to see if worse # Anemia of chronic disease --> anemia of chronic disease has been reviewed # Hyponatremia now on NS --> Consider edema and low sodium due to medications # Hypothyroidism --> on synthroid # Suicidal ideation # Elevated lactic acid level # Homelessness Greatly appreciate consultation! Subjective Constitutional: Denies: no symptoms, chills, diaphoresis, fever, malaise, weakness, other HEENT: Denies: no symptoms, eye pain, blurred vision, tearing, double vision, ear pain, ear discharge, nose pain, nose congestion, throat pain, throat swelling, mouth pain, mouth swelling, other Cardiovascular: Denies: no symptoms, chest pain, edema, irregular heart rate, lightheadedness, palpitations, syncope, other Respiratory: Reports: no symptoms; Denies: cough, orthopnea, shortness of breath, SOB with excertion, SOB at rest, sputum, stridor, wheezing, other Gastrointestinal/Abdominal: Denies: no symptoms, abdomen distended, abdominal pain, black stools, tarry stools, blood in stool, constipated, diarrhea, difficulty swallowing, nausea, poor appetite, poor fluid intake, rectal bleeding , vomiting, other Neurologic/Psychiatric: Denies: no symptoms, anxiety, depressed, emotional problems, headache, numbness, paresthesia, pre-existing deficit, seizure, tingling, tremors, weakness, other Endocrine: Denies: no symptoms, excessive sweating, flushing, intolerance to cold, intolerance to heat, increased hunger, increased thirst, increased urine, unexplained weight gain, unexplained weight loss, other Hematologic/Lymphatic: Denies: no symptoms, anemia, easy bleeding, easy bruising, other Allergies: Uncoded Allergies: HAY FEVER (Allergy, Intermediate, 12/24/17) Subjective refusing care, continues to display si Objective Last 24 Hour Vital Signs Date Time Temp Pulse Resp B/P (MAP) Pulse Ox O2 Delivery O2 Flow Rate FiO2 04/25/18 04:00 97.6 55 20 135/58 (83) 98 97.6 04/25/18 00:00 98.2 65 18 135/63 (87) 98 98.2 04/24/18 21:07 72 150/60 04/24/18 21:00 Room Air 04/24/18 20:00 98.3 72 18 150/60 (90) 97 98.3 04/24/18 16:41 143/93 04/24/18 16:00 97.2 74 20 143/93 (110) 97 97.2 04/24/18 09:00 57 143/53 04/24/18 09:00 143/53 04/24/18 09:00 Room Air 04/24/18 08:00 97.3 57 20 143/53 (83) 95 97.3 Intake and Output 04/24/18 04/25/18 19:00 07:00 Intake Total 1500 ml Balance 1500 ml Other 1500 ml # Voids 3 Laboratory Tests 04/24/18 11:10: Hepatitis C Antibody [Pending], Hepatitis C RNA (PCR) IUs/ml [Pending], Hepatitis C RNA (PCR) log IUs/ml [Pending] Height (Feet): 5 Height (Inches): 8.00 Weight (Pounds): 198 General Appearance: no apparent distress EENT: TMs normal Neck: normal alignment Cardiovascular: regular rhythm Respiratory/Chest: no respiratory distress Abdomen: non tender Extremities: normal range of motion Edema: 1+ Leg (L), 1+ Leg (R), 1+ Pedal (L), 1+ Pedal (R) Neurologic: alert Skin: warm/dry Silviano Arteaga MD Apr 25, 2018 06:55
[2018-04-25 07:49] LABS: BASOPHILS % (AUTO) 1.3 % (0.0-2.0); EOSINOPHILS % (AUTO) 11.7 % (0.0-3.0); HEMATOCRIT 34.2 % (42.0-52.0); HEMOGLOBIN 12.5 G/DL (14.2-18.0); LYMPHOCYTES % (AUTO) 27.1 % (20.0-45.0); MEAN CORPUSCULAR VOLUME 94 FL (80-99); MONOCYTES % (AUTO) 9.7 % (1.0-10.0); NEUTROPHILS % (AUTO) 50.2 % (45.0-75.0); PLATELET COUNT 114 K/UL (150-450); RED BLOOD COUNT 3.66 M/UL (4.70-6.10); RED CELL DISTRIBUTION WIDTH 12.4 % (11.6-14.8); WHITE BLOOD COUNT 6.5 K/UL (4.8-10.8)
[2018-04-25 08:00] VITALS: BP 131/66
[2018-04-25 08:02] LABS: INR 1.5 (0.9-1.1)
--- NOTE | 2018-04-25 10:09 | Nephrology Progress Note ---
Assessment/Plan Problem List: (1) Hypothyroid (2) Hyponatremia (3) Hypoalbuminemia Assessment HypoNatremia corrected- depletional Anemia HypoAlbuminemia elevated LFTs HypoThyroid Plan DC saline IV check TSH BP and BS control ? DC Subjective ROS Limited/Unobtainable: No Objective Objective Last 24 Hour Vital Signs Date Time Temp Pulse Resp B/P (MAP) Pulse Ox O2 Delivery O2 Flow Rate FiO2 04/25/18 09:00 Room Air 04/25/18 08:00 96.4 86 20 131/66 (87) 100 96.4 04/25/18 04:00 97.6 55 20 135/58 (83) 98 97.6 04/25/18 00:00 98.2 65 18 135/63 (87) 98 98.2 04/24/18 21:07 72 150/60 04/24/18 21:00 Room Air 04/24/18 20:00 98.3 72 18 150/60 (90) 97 98.3 04/24/18 16:41 143/93 04/24/18 16:00 97.2 74 20 143/93 (110) 97 97.2 Intake and Output 04/24/18 04/25/18 19:00 07:00 Intake Total 3000 ml Balance 3000 ml Intake Oral 1500 ml Other 1500 ml # Voids 8 Laboratory Tests 04/24/18 11:10: Hepatitis C Antibody [Pending], Hepatitis C RNA (PCR) IUs/ml [Pending], Hepatitis C RNA (PCR) log IUs/ml [Pending] 04/25/18 07:00: White Blood Count 6.5, Red Blood Count 3.66L, Hemoglobin 12.5L, Hematocrit 34.2L , Mean Corpuscular Volume 94, Mean Corpuscular Hemoglobin 34.1H, Mean Corpuscular Hemoglobin Concent 36.5H, Red Cell Distribution Width 12.4, Platelet Count 114L, Mean Platelet Volume 8.7, Neutrophils (%) (Auto) 50.2, Lymphocytes (%) (Auto) 27.1, Monocytes (%) (Auto) 9.7, Eosinophils (%) (Auto) 11.7H, Basophils (%) (Auto) 1.3, Prothrombin Time 15.5H, Prothromb Time International Ratio 1.5H Height (Feet): 5 Height (Inches): 8.00 Weight (Pounds): 198 General Appearance: no apparent distress Cardiovascular: normal rate Respiratory/Chest: lungs clear Abdomen: soft Objective no change John Arrington MD Apr 25, 2018 10:09
[2018-04-25] MEDS: Lisinopril 20mg tab ORAL SCH (10:55)
[2018-04-25] MEDS: Depakote 500mg tab ORAL SCH (10:55)
[2018-04-25] MEDS: Sucralfate 1gm tab ORAL SCH (10:58)
[2018-04-25 12:00] VITALS: BP_SYST 145; BP_SYST 146; BP_DIAS 62; BP_DIAS 63
--- NOTE | 2018-04-25 14:47 | Cardiac Electrophysiology PN ---
Assessment/Plan Assessment/Plan 1. Accelerated hypertension. On lisinopril 20 mg bid and Norvasc 5 mg daily and p.r.n. clonidine. Echocardiogram EF 60% 2. Bipolar disorder, on Risperdal and Haldol. 3. Homelessness. Subjective Subjective Comfortable in NAD. DC planning in progress Objective Last 24 Hour Vital Signs Date Time Temp Pulse Resp B/P (MAP) Pulse Ox O2 Delivery O2 Flow Rate FiO2 04/25/18 12:00 97.7 64 20 145/63 (90) 100 97.7 64 04/25/18 10:55 86 131/66 04/25/18 10:55 131/66 04/25/18 09:00 Room Air 04/25/18 08:00 96.4 86 20 131/66 (87) 100 96.4 04/25/18 04:00 97.6 55 20 135/58 (83) 98 97.6 04/25/18 00:00 98.2 65 18 135/63 (87) 98 98.2 04/24/18 21:07 72 150/60 04/24/18 21:00 Room Air 04/24/18 20:00 98.3 72 18 150/60 (90) 97 98.3 04/24/18 16:41 143/93 04/24/18 16:00 97.2 74 20 143/93 (110) 97 97.2 Intake and Output 04/24/18 04/25/18 19:00 07:00 Intake Total 3000 ml Balance 3000 ml Intake Oral 1500 ml Other 1500 ml # Voids 8 Laboratory Tests Test 04/25/18 07:00 White Blood Count 6.5 K/UL (4.8-10.8) Red Blood Count 3.66 M/UL (4.70-6.10) L Hemoglobin 12.5 G/DL (14.2-18.0) L Hematocrit 34.2 % (42.0-52.0) L Mean Corpuscular Volume 94 FL (80-99) Mean Corpuscular Hemoglobin 34.1 PG (27.0-31.0) H Mean Corpuscular Hemoglobin Concent 36.5 G/DL (32.0-36.0) H Red Cell Distribution Width 12.4 % (11.6-14.8) Platelet Count 114 K/UL (150-450) L Mean Platelet Volume 8.7 FL (6.5-10.1) Neutrophils (%) (Auto) 50.2 % (45.0-75.0) Lymphocytes (%) (Auto) 27.1 % (20.0-45.0) Monocytes (%) (Auto) 9.7 % (1.0-10.0) Eosinophils (%) (Auto) 11.7 % (0.0-3.0) H Basophils (%) (Auto) 1.3 % (0.0-2.0) Prothrombin Time 15.5 SEC (9.30-11.50) H Prothromb Time International Ratio 1.5 (0.9-1.1) H Objective HEAD AND NECK: No JVD. LUNGS: Clear. CARDIOVASCULAR: Regular S1 and S2 with no gallop or murmur. ABDOMEN: Soft. EXTREMITIES: 1 plus pitting edema. Otto Washburn MD Apr 25, 2018 14:47
--- NOTE | 2018-04-25 15:03 | Cardiology Report ---
APPROVED REPORT EXAM: Two-dimensional and M-mode echocardiogram with Doppler and color Doppler. INDICATION Hypertension/HCVD M-Mode DIMENSIONS IVSd1.5 (0.7-1.1cm)Left Atrium (MM)4.0 (1.6-4.0cm) LVDd4.9 (3.5-5.6cm)Aortic Root2.5 (2.0-3.7cm) PWd1.3 (0.7-1.1cm)Aortic Cusp Exc.1.4 (1.5-2.0cm) LVDs3.1 (2.5-4.0cm) PWs1.8 cm Normal left ventricular chamber size, systolic function and wall motion. Left ventricular ejection fraction estimated to be 60 %. Mild left ventricular hypertrophy. Anterior Echo-free space, may be due to pericardial fat or effusion. Mild right ventricular enlargement. Left atrial chamber size is within normal limits. Right atrial chamber size is within normal limits. Mild focal aortic valve sclerosis with adequate cusp excursion. Mildly thickened mitral valve leaflets with normal excursion. Mild mitral annulus and aortic root calcification. Normal pulmonic valve structure. Normal tricuspid valve structure. IVC measures at 1.9 cm with physiological collapse. A color flow and spectral Doppler study was performed and revealed: No aortic insufficiency. Trace mitral regurgitation. Mitral diastolic velocities suggest mild left ventricular diastolic dysfunction (Grade I). Mild tricuspid regurgitation. Tricuspid systolic velocities suggests peak right ventricular systolic pressure of 33 mmHg. No pulmonic regurgitation present.
[2018-04-25 16:00] VITALS: BP 129/73
[2018-04-25] MEDS ORDERED: NS 275ml ONE (16:16)
--- NOTE | 2018-04-25 23:43 | General Progress Note ---
Assessment/Plan Status: stable Assessment/Plan schizoaffective d/o bipolar type start Depakote start Risperdal dc the sitter the pt is not at imminent dts/dto Haldol dec they pt is not meeting Subjective Neurologic/Psychiatric: Reports: anxiety Allergies: Uncoded Allergies: HAY FEVER (Allergy, Intermediate, 12/24/17) Subjective the pt uncooperative Objective Last 24 Hour Vital Signs Date Time Temp Pulse Resp B/P (MAP) Pulse Ox O2 Delivery O2 Flow Rate FiO2 04/25/18 16:00 98.0 98 19 129/73 (91) 96 98.0 98 04/25/18 12:00 97.7 64 20 145/63 (90) 100 97.7 64 04/25/18 10:55 86 131/66 04/25/18 10:55 131/66 04/25/18 09:00 Room Air 04/25/18 08:00 96.4 86 20 131/66 (87) 100 96.4 04/25/18 04:00 97.6 55 20 135/58 (83) 98 97.6 04/25/18 00:00 98.2 65 18 135/63 (87) 98 98.2 Intake and Output 04/24/18 04/25/18 19:00 07:00 Intake Total 3000 ml Balance 3000 ml Intake Oral 1500 ml Other 1500 ml # Voids 8 Laboratory Tests 04/25/18 07:00: White Blood Count 6.5, Red Blood Count 3.66L, Hemoglobin 12.5L, Hematocrit 34.2L , Mean Corpuscular Volume 94, Mean Corpuscular Hemoglobin 34.1H, Mean Corpuscular Hemoglobin Concent 36.5H, Red Cell Distribution Width 12.4, Platelet Count 114L, Mean Platelet Volume 8.7, Neutrophils (%) (Auto) 50.2, Lymphocytes (%) (Auto) 27.1, Monocytes (%) (Auto) 9.7, Eosinophils (%) (Auto) 11.7H, Basophils (%) (Auto) 1.3, Prothrombin Time 15.5H, Prothromb Time International Ratio 1.5H Height (Feet): 5 Height (Inches): 8.00 Weight (Pounds): 198 General Appearance: no apparent distress, alert Neurologic: oriented x 3, normal mood/affect Geri Gutierres MD Apr 25, 2018 23:43
--- NOTE | 2018-04-26 08:18 | Discharge Summary ---
Discharge Summary Discharge Summary _ DATE OF ADMISSION: 04/21/2018 DATE OF DISCHARGE: 04/25/2018 CONSULTANTS: Dr. Geri Vasquez BRIEF HOSPITAL COURSE: Patient is a 68-year-old male, with history of bipolar disorder, schizoaffective disorder, hypertension, GERD, diabetes mellitus, osteoarthritis , and COPD, presented to ED via EMS with complaints of wanting to kill himself. He told EMS he would jump off in front of traffic. He stated he was very depressed at the place where he is living and refuses to go back. He has pain all over his body and swelling in the legs. Pain was 10 over 10 and was generalized. He denied any fever or chills, no nausea, vomiting, diarrhea, no cough, or dyspnea On evaluation at ED, patient initially refused evaluation. Vital signs showed elevated blood pressure 176/80, heart rate 56. Blood work showed no leukocytosis. TSH was elevated to 5.2. Sodium was 127. Lactic acid 2.8. Troponin was 0.036. BNP 185. Urine toxicology was positive for benzodiazepine. EKG was in normal sinus rhythm with no acute changes. Chest x- ray showed no acute disease. He was then admitted for evaluation of hyponatremia, hypothyroidism, suicidal ideation, elevated lactic acid and edema. Patient was exhibiting episodes of agitation. He was given a sitter. Psychiatric evaluation was done. On psychiatrist evaluation, patient did not endorse suicidal thoughts and stated that he would try to remain calm. Patient was not endorsing psychotic symptoms. He was irritable. Seroquel was discontinued. He was started on Depakote and Risperdal. He was given Haldol prn. Patient was assessed to be not an imminent danger to self or to others. Sitter was discontinued. He was seen by leather sponger. He was given IV saline hydration. Blood pressure was elevated, overhead irrigator was consulted. He was started on lisinopril 20 mg twice a day. Norvasc 5 mg was added. He was placed on prn clonidine. Echocardiogram showed ejection fraction of 60%. There was mild left ventricular hypertrophy. No aortic insufficiency. Patient had thrombocytopenia. He had elevated liver function tests. Abdominal ultrasound showed no definite evidence of chronic liver disease. Patient has history of hepatitis C. Hepatitis C serology pending. Hyponatremia resolved. Urine random sodium was <20. IV fluids was eventually discontinued. Blood pressure with better control. He was given PT mobility. He was eventually discharged to [facility]. FINAL DIAGNOSES: Hyponatremia Hypothyroidism Accelerated hypertension Schizoaffective disorder bipolar type Hypoalbuminemia Thrombocytopenia with history of potential liver disease Anemia of chronic disease Elevated liver transaminases Suicidal ideation, resolved Lactic acidosis Homelessness DISPOSITION: Patient was discharged on assisted living. DISCHARGE MEDICATIONS: Refer to Discharge Medication List. I have been assigned to dictate discharge summary on this account, and I was not involved in the patient's management. Kira Amezcua NP Apr 26, 2018 08:18
== END 2018-04-25 16:17 | DRG 641 ==
LOC: EDBD 16:48 → EMR 17:02 → 4E 17:57 → EDBEDREQ 18:04
DX: E87.1 Hypo-osmolality and hyponatremia (principal); R45.851 Suicidal ideations; E03.9 Hypothyroidism, unspecified; I10 Essential (primary) hypertension; F25.0 Schizoaffective disorder, bipolar type; E88.09 Other disorders of plasma-protein metabolism, not elsewhere classified; D69.6 Thrombocytopenia, unspecified; D63.8 Anemia in other chronic diseases classified elsewhere; R74.0 Nonspecific elevation of levels of transaminase and lactic acid dehydrogenase [LDH]; Z59.0 Homelessness; E11.9 Type 2 diabetes mellitus without complications; M19.90 Unspecified osteoarthritis, unspecified site; J44.9 Chronic obstructive pulmonary disease, unspecified; Z86.19 Personal history of other infectious and parasitic diseases
CPT/HCPCS: 36415; 71045; 76700; 80053; 80307; 80329; 81003; 82550; 82962; 83605; 83880; 84300; 84443; 84484; 85025; 85610; 86140; 87081; 87522; 93005; 93306; 96360; 96361; 99285

== ENCOUNTER 2018-04-25 19:04 | Emergency (ER) | payer MEDICARE, OTHER ==
[~2018-04-25] VITALS: Ht 175.3 cm; Wt 86.2 kg
[~2018-04-25 19:04] MED LIST changes: +KLONOPIN1 MG ORAL; +QUETIAPINE FUM100 MG ORAL; +QUETIAPINE FUMA50 MG ORAL; +SEROQUEL200 MG ORAL
[2018-04-25 19:34] VITALS: BP 174/51
[2018-04-25 22:28] VITALS: BP 159/61
[2018-04-25 22:48] LABS: BASOPHILS % (AUTO) 0.5 % (0.0-2.0); HEMATOCRIT 35.2 % (42.0-52.0); HEMOGLOBIN 12.6 G/DL (14.2-18.0); LYMPHOCYTES % (AUTO) 19.3 % (20.0-45.0); MEAN CORPUSCULAR VOLUME 94 FL (80-99); MONOCYTES % (AUTO) 11.5 % (1.0-10.0); NEUTROPHILS % (AUTO) 60.9 % (45.0-75.0); PLATELET COUNT 114 K/UL (150-450); RED BLOOD COUNT 3.72 M/UL (4.70-6.10); RED CELL DISTRIBUTION WIDTH 12.8 % (11.6-14.8); WHITE BLOOD COUNT 5.7 K/UL (4.8-10.8)
--- NOTE | 2018-04-25 22:50 | Emergency Room Report ---
History of Present Illness General Chief Complaint: Behavioral Complaint Present Illness HPI Patient is a 68-year-old male presented after increased suicidal thoughts. Patient recently been discharged from the hospital and was discharged to a board -and-care. The patient subsequent stated that he wanted to harm himself by walking in a traffic. The patient had reported long-standing history of depression.He denies any auditory or visual hallucinations. Patient is followed by Dr. Buchanan who is his primary care physician. (Carl Yu MD) Allergies: Uncoded Allergies: HAY FEVER (Allergy, Intermediate, 12/24/17) Patient History Past Medical History: see triage record Reviewed Nursing Documentation: PMH: Agreed; PSxH: Agreed (Carl Yu MD) Nursing Documentation-PMH Hx Diabetes: Yes Hx Cancer: No Hx Gastrointestinal Problems: No History Of Psychiatric Problem: Yes - Schizophrenia Hx Tremors: Yes (Carl Yu MD) Review of Systems All Other Systems: negative except mentioned in HPI (Carl Yu MD) Physical Exam Vital Signs Date Time Temp Pulse Resp B/P (MAP) Pulse Ox O2 Delivery O2 Flow Rate FiO2 04/25/18 19:10 98.2 71 16 113/60 98 Room Air 98.2 Sp02 EP Interpretation: reviewed, normal General Appearance: normal inspection, well appearing, no apparent distress, alert, GCS 15, non-toxic Head: atraumatic ENT: normal ENT inspection, hearing grossly normal, normal voice Neck: normal inspection, full range of motion, supple, no bony tend Respiratory: normal inspection, lungs clear, normal breath sounds, no respiratory distress, no retraction, no wheezing Cardiovascular #1: regular rate, rhythm, no edema Gastrointestinal: normal inspection, normal bowel sounds, non tender, soft, no guarding, no hernia Genitourinary: no CVA tenderness Musculoskeletal: normal inspection, back normal, normal range of motion Neurologic: normal inspection, alert, responsive, speech normal Psychiatric: memory normal, no delusions, depressed affect Skin: normal inspection, normal color, no rash (Carl Yu MD) Medical Decision Making Diagnostic Impression: Primary Impression: Suicidal ideations Additional Impressions: Hyponatremia Hyperglycemia due to type 2 diabetes mellitus Qualified Codes: E11.65 - Type 2 diabetes mellitus with hyperglycemia ER Course Patient 68-year-old male the who presented for suicidal thoughts. The differential diagnosis included was not limited to psychosis, malingering, depression, hypothyroidism among others.Because of complexity of patient's case laboratory testing and imaging studies were ordered. The laboratory testing was notable for some hyponatremia. Patient was endorsed to Dr. Kc pending final disposition. (Carl Yu MD) ER Course Patient presents with suicidal mediation. I spoke with Dr. Still who initially wanted to transfer the patient to [facility]. Unfortunately there is no bed there. He or except the patient to [facility] has medical doctor with psychiatric admission. He also told me that patient is chronically hyponatremic. Sodium normally runs in the 125-127 range. This is normal for him. patient is medically clear for psychiatric admission. (Canelo Kc MD) Last Vital Signs Date Time Temp Pulse Resp B/P (MAP) Pulse Ox O2 Delivery O2 Flow Rate FiO2 04/25/18 22:28 97.7 59 16 159/61 100 Room Air 97.7 Status: unchanged (Carl Yu MD) Status: improved (Canelo Kc MD) Disposition: XFER SHT-TRM HOSP Condition: Stable Referrals: NON PHYSICIAN (PCP) Carl Yu MD Apr 25, 2018 22:50 Canelo Kc MD Apr 26, 2018 00:16
[2018-04-25 23:01] LABS: ANION GAP 8 mmol/L (5-15); BLOOD UREA NITROGEN 6 mg/dL (7-18); CALCIUM 8.3 MG/DL (8.5-10.1); CARBON DIOXIDE 27 MMOL/L (21-32); CHLORIDE 91 MMOL/L (98-107); CREATININE 0.8 MG/DL (0.55-1.30); POTASSIUM 4.5 MMOL/L (3.5-5.1); SODIUM 125 MMOL/L (136-145)
[2018-04-25 23:05] LABS: ALANINE AMINOTRANSFERASE 89 U/L (12-78); ALBUMIN 2.7 G/DL (3.4-5.0); ALBUMIN/GLOBULIN RATIO 0.6 (1.0-2.7); ALKALINE PHOSPHATASE 211 U/L (46-116); ASPARTATE AMINO TRANSFERASE 107 U/L (15-37); BILIRUBIN,TOTAL 0.5 MG/DL (0.2-1.0)
[2018-04-26] LABS: APPEARANCE,URINE CLEAR; BILIRUBIN, URINE NEGATIVE (NEGATIVE); COLOR,URINE PALE YELLOW; GLUCOSE, URINE (UA) 1+ (NEGATIVE); KETONES,URINE 1+ (NEGATIVE); LEUKOCYTE ESTERASE ,URINE NEGATIVE (NEGATIVE); NITRITE,URINE NEGATIVE (NEGATIVE); PH,URINE 8 (4.5-8.0); PROTEIN,URINE NEGATIVE (NEGATIVE); UROBILINOGEN,URINE NORMAL MG/DL (0.0-1.0)
[2018-04-26 00:42] VITALS: BP 135/105
[2018-04-26 05:00] VITALS: BP 135/105
== END 2018-04-26 01:30 | disposition short-term general hospital (02) ==
LOC: EDBD 19:04 → EMR 22:20
DX: F32.9 Major depressive disorder, single episode, unspecified (principal); R45.851 Suicidal ideations; F20.9 Schizophrenia, unspecified; E87.1 Hypo-osmolality and hyponatremia; E11.65 Type 2 diabetes mellitus with hyperglycemia; E11.9 Type 2 diabetes mellitus without complications
CPT/HCPCS: 36415; 80053; 80307; 81003; 85025; 99285; G0480; 80329